=== PATIENT | male | born 1960 | race Caucasian/White ===

== ENCOUNTER 2016-10-08 08:10 | Inpatient (IN) | payer OTHER ==
[2016-09-13 11:56] VITALS: BMI 49.0
--- NOTE | 2016-09-13 12:38 | PAT Medication Instructions ---
Service Date Sep 13, 2016. Current Home Medication List Aspirin (Aspirin Ec), 81 MG PO QAM Cholecalciferol (Vitamin D3), 1 TAB PO QPM Cyanocobalamin (Vitamin B12 500MCG), 1,000 MCG PO QPM Levothyroxine Sodium (Levothyroxine Sodium), 1 TAB PO QAM Levothyroxine Sodium (Synthroid), 200 MCG PO QAM Lisinopril (Zestril), 10 MG PO QPM Metformin Hcl (Glucophage), 500 MG PO BID Multivitamin (Multivitamin), 1 TAB PO QAM Simvastatin (Zocor), 20 MG PO QPM Tramadol (Ultram), 50 MG PO Q4H PRN for Pain [Inhaler], 2 PUFFS INH Q4H PRN for cryptanalyst Instructions For Your Scheduled Surgery - Hold the following medications 48 hours prior to surgery: Metformin Hcl (Glucophage), 500 MG PO BID - Hold the following medications evening prior to surgery: Lisinopril (Zestril), 10 MG PO QPM - Hold the following medications the morning of surgery: Multivitamin (Multivitamin), 1 TAB PO QAM - Take the following medications the morning of surgery with a sip of water: Tramadol (Ultram), 50 MG PO Q4H PRN for Pain (can take up to up to four hours prior to surgery if needed) Levothyroxine Sodium (Levothyroxine Sodium), Aspirin (Aspirin Ec), 81 MG PO QAM Albuterol Inhaler 2 PUFFS INH Q4H PRN for RN (bring with you to hospital on day of surgery) - Take the following medications as scheduled the night before surgery: Tramadol (Ultram), 50 MG PO Q4H PRN for Pain Simvastatin (Zocor), 20 MG PO QPM Cholecalciferol (Vitamin D3), 1 TAB PO QPM Cyanocobalamin (Vitamin B12 500MCG), 1,000 MCG PO QPM Albuterol Inhaler 2 PUFFS INH Q4H PRN for RN If you have any questions please call us at [phone] or [phone] ( [place]) or [phone]
--- NOTE | 2016-09-13 13:08 | DIAGNOSTIC IMAGING REPORT ---
CHEST PREADMISSION(PA/LAT) CLINICAL HISTORY: PAT preoperative evaluation COMPARISON STUDY: None FINDINGS: Mild cardiomegaly. Lungs otherwise are clear. Diaphragms are smooth. IMPRESSION: Mild cardia megaly. Otherwise negative study Electronically signed by: Abran Amos M.D. 09/13/2016 1:07 PM
[2016-09-13 13:26] LABS: PROTHROMBIN TIME (PATIENT) 10.6 SECONDS (9.0-12.0)
[2016-09-13 13:59] LABS: ESTIMATED AVERAGE GLUCOSE 108 mg/dl; HA1C FLAG Normal (Normal)
--- NOTE | 2016-09-17 16:19 | History and Physical ---
History & Physical Date Sep 17, 2016. Chief Complaint left knee pain History of Present Illness Nguyễn is a pleasant 56-year-old fauzia who presents for preoperative evaluation prior to a left knee replacement. Patient states that they have been having pain in this knee for many years now, which has gradually worsened, it has now gotten to the point it is affecting his daily activities including walking, standing, going up and down steps. Patient has tried and failed conservative measures including previous cortisone injection, viscosupplementation, bracing, physical therapy, and PO NSAIDs with no relief, as well as a previous knee arthroscopy. At this point in time, patient has failed conservative measures and would like to proceed with a left knee replacement. Past Medical/Surgical History Asthma Hypothyroidism Sleep Apnea Diabetes Additional History Bleeding Tendencies: No Infectious Diseases: No Allergies Coded Allergies: No Known Allergies (Unverified , 09/13/16) Home Medications Scheduled Aspirin (Aspirin Ec), 81 MG PO QAM Cholecalciferol (Vitamin D3), 1 TAB PO QPM Cyanocobalamin (Vitamin B12 500MCG), 1,000 MCG PO QPM Levothyroxine Sodium (Levothyroxine Sodium), 1 TAB PO QAM Levothyroxine Sodium (Synthroid), 200 MCG PO QAM Lisinopril (Zestril), 10 MG PO QPM Metformin Hcl (Glucophage), 500 MG PO BID Multivitamin (Multivitamin), 1 TAB PO QAM Simvastatin (Zocor), 20 MG PO QPM Scheduled PRN Tramadol (Ultram), 50 MG PO Q4H PRN for Pain [Inhaler], 2 PUFFS INH Q4H PRN for RN Physical Examination Skin: warm/dry, no rash Eyes: normal inspection, EOMI, sclerae normal ENT: normal ENT inspection, pharynx normal Head: normocephalic, atraumatic Neck: supple, no adenopathy, trachea midline Respiratory/Chest: lungs clear, normal breath sounds, no respiratory distress Cardiovascular: regular rate, rhythm, no edema, no murmur Abdomen / GI: normal bowel sounds, non tender Addiitonal Comments: Left KNEE Knee ROM L * Active ROM - Flexion: 100 degrees, Extension: 5 degrees, Factors: pain, Description: Active painful ROM. Knee * Gait: Limp. Alignment - Left: neutral. Ecchymosis - Left: negative. Effusion - Left: mild. Swelling - Left: mild. Maximum tenderness - Left: Medial Joint Line. Patella exam - Crepitation - Left: mild. Patella position - Left: neutral. Knee Normal Inspection - Atrophy - Left: Absent. Skin - Left: Normal. Patella exam - Apprehension - Left: Negative. Q-angle - Left: Normal. Posterior drawer - Left: Negative. Anterior drawer - Left: Negative. Diagnosis Left knee djd Hypothyroidism Diabetes Asthma Left Knee Xray: Xrays reviewed of the left knee showing findings consistent with degenerative joint disease including joint space narrowing, subchondral sclerosis and peripheral osteophyte formation. no acute bony pathology, overall varus alignment. Impression: degenerative joint disease of the Left knee with no acute bony pathology noted. Plan of Treatment Further care discussed with patient and at this point in time has failed conservative measures and would like to proceed with a left total knee replacement. Plan on discharge will be home with outpatient physical therapy. DVT prophalaxis with TEDs, SCDs and will also place on aspirin 81 mg p.o. b.i.d. for a month postop. Patient will have follow up appointment in our office two weeks post op for staple/suture removal and re-evaluation. Patient otherwise has no other questions or concerns.
[2016-10-08] VITALS (9 sets, daily range): BP systolic 98–129; BP diastolic 65–84; PULSE 74–90; TEMP 36.4–36.8; O2SAT 91–98; Ht 167.6 cm; Wt 138.3 kg
[~2016-10-08] VITALS: Ht 167.6 cm; Wt 138.3 kg
[2016-10-08] MEDS: TRANEXAMIC ACID INJ 1,000 MG in SODIUM CHLORIDE 0.9% 100ML 100 ML IV SCH ×2 (06:30→10:37)
--- NOTE | 2016-10-08 07:13 | History & Physical Bridge Note ---
H&P Re-Evaluation Bridge Note: I have examined the patient, reviewed the History & Physical and in the interval since the performance of the History & Physical I have noted the following changes of clinical significance: No changes noted
[~2016-10-08 08:10] MED LIST: ACETAMINOPHEN 500 MG TAB PO SCH; ASPI81TA28 PO; BUPIVACAINE 0.25% 30 ML VIAL ONE; BUPIVACAINE 0.5 % 5 MG/1 ML PF 10ML VIAL ONE; CEFAZOLIN 3000 MG/65 ML D5W 65 ML IV SCH; CHOL1000 PO; CYAN500T13 PO; CeleBREX 200 MG CAP PO SCH; DEXAMETHASONE 4 MG TAB PO SCH; FAMOTIDINE 20 MG TAB PO SCH; FENTANYL CITRATE INJ 50 MCG/1 ML 2 ML VIAL ONE; GABAPENTIN 300 MG CAP PO SCH; INHALER INH; LACTATED RINGER'S 1000ML IV SCH; LACTATED RINGER'S 500 ML IV SCH; LEVO200T6 PO; METOCLOPRAMIDE HCL 10 MG TAB PO SCH; MIDAZOLAM HCL 1 MG/ML 2ML VIAL ONE; MULT-506 PO; ROPIVACAINE 5MG/ML 30 ML 150 MG, BUPIVACAINE/EPINEPHR 0.5% MPF 30 ML, KETOROLAC TROMETH... INFIL SCH; SIMV20TA2 PO; TRAM-10 PO
[2016-10-08] MEDS ORDERED: NURSING VERBAL MED ORDER ONE (08:45)
[2016-10-08] MEDS ORDERED: PROPOFOL IV EMULSION 10 MG/ML 20 ML VIAL IV ONE (09:39)
[2016-10-08] MEDS ORDERED: LACTATED RINGER'S 1000ML 1,000 ML IV PRN (10:11)
[2016-10-08] MEDS ORDERED: FENTANYL CITRATE INJ 50 MCG/1 ML 2 ML VIAL IV PRN (10:15)
[2016-10-08] MEDS ORDERED: ONDANSETRON INJ 2 MG/ML 2 ML VIAL IV PRN ×2 (10:15→12:45)
[2016-10-08] MEDS ORDERED: ORTHO JOINT ANESTHETIC ONE (10:20)
[2016-10-08] MEDS ORDERED: MIDAZOLAM HCL 1 MG/ML 2ML VIAL ONE (11:07)
--- NOTE | 2016-10-08 11:57 | [facility] Post Operative Brief Note ---
Immediate Operative Summary Operative Date Oct 08, 2016. Pre-Operative Diagnosis Left Knee Degenerative Joint Disease Post-Operative Diagnosis Left Knee Degenerative Joint Disease Procedure(s) Performed Left Total Knee Arthroplasty Surgeon Dr. Toni Lanier Supervisor [employer] Surgeon(s) Colten Singh PA-C Estimated Blood Loss 10mL Findings severe djd lt knee Specimens Specimen A. Left Knee Bone and Tissue Complication(s) None Disposition Recovery Room / PACU
[2016-10-08] MEDS ORDERED: POVIDONE-IODINE OP SOLN 30 ML BTL TOP ONE (12:10)
[2016-10-08] MEDS ORDERED: BACITRACIN 50000 UNIT VIAL IR ONE (12:10)
--- NOTE | 2016-10-08 12:16 | OPERATIVE REPORT ---
DATE OF OPERATION: 10/08/2016 PREOPERATIVE DIAGNOSIS: Severe endstage degenerative joint disease left knee. POSTOPERATIVE DIAGNOSIS: Severe endstage degenerative joint disease left knee. PROCEDURE: Left total knee arthroplasty utilizing Journey II patient matched block total knee arthroplasty size 6 femur, 5 tibia, 13 constrained poly, 32 oval patella. SURGEON: Dr. Lanier. WELDING SPECIALIST: Colten Singh PA-C who was necessary for prepping, draping, retraction, wound closure of deep fascia, subQ and skin. ESTIMATED BLOOD LOSS: 10 mL. TOURNIQUET TIME: 40 minutes. COMPLICATIONS: None. HISTORY OF PRESENT ILLNESS: The patient is a very pleasant 68-year-old white male with complaints of ongoing severe endstage DJD about his left knee. He has been nonresponsive to conservative therapy and presents for total knee arthroplasty. After thorough discussion of risks, complications and other treatment options he has failed attempts at injections, viscosupplementations, corticosteroid injections, relative rest, activity modification and bracing. OPERATION AND FINDINGS: PROCEDURE: The patient was properly prepped and draped in supine position for total knee arthroplasty after identifying the appropriate surgical site. An anterior midline incision was made through the subcutaneous tissues down to the region of the extensor mechanism. A medial parapatellar incision was subsequently made. Meticulous hemostasis was obtained and performed at all times. The patella having been subluxed lateralward, medial and lateral meniscal remnants were excised. The patellar cut was then initially made and was sized to the appropriate size. After subluxing the tibia forward the appropriate meniscal fragments having been removed the distal femur was then cut first utilizing a Borrego \T\ Nephew block. The distal femoral cuts and chamfer cuts were all made under direct visualization and the proximal tibial osteotomy cut was also made utilizing Borrego \T\ Nephew blocks and checked with an extramedullary guide. The appropriate trial components on the femur and tibia were placed. Appropriate trial spacers were used to check flexion and extension gaps. With flexion and extension gaps being equal, the components were then subsequently after thorough irrigation and debridement lavage components were then subsequently cemented in the following order: femur, tibia and patella. Exparel was used for intraoperative anesthesia, the medial parapatellar incision was closed utilizing #1 Vicryl, subQ was closed with 2-0 Vicryl, skin was closed with skin clips. A sterile compression dressing was placed. The patient was taken to recovery room in stable condition. Due to the complex nature of the procedure, the entire surgery was performed with the operational assistance of Colten Singh PA-C. The operations administrative assistant, under direct supervision, was involved in the actual performance of all aspects of the surgical procedure including hemostasis, tissue retraction and incision, instrument management, patient positioning, and wound closure. I attest to the content of the Intraoperative Record and any orders documented therein. Any exceptio ns are noted below.
[2016-10-08] MEDS ORDERED: BISACODYL 10 MG SUPP PR PRN (12:45)
[2016-10-08] MEDS ORDERED: [UNRECOGNIZED DRUG - OTHER] INH PRN (12:45)
[2016-10-08] MEDS ORDERED: MAGNESIUM HYDROXIDE SUSP 30 ML UDC PO PRN (12:45)
[2016-10-08] MEDS ORDERED: DiphenhydrAMINE HCL 50 MG/ML VIAL IV PRN (12:45)
[2016-10-08] MEDS ORDERED: MoRPHine SULFATE 2 MG/ML CARP IV PRN ×2 (12:45→14:30)
[2016-10-08] MEDS ORDERED: ZOLPIDEM TARTRATE 5 MG TAB PO PRN (12:45)
[2016-10-08] MEDS ORDERED: TAMSULOSIN HCL 0.4 MG CAP PO PRN (12:45)
[2016-10-08] MEDS ORDERED: ALUMINUM/MAGNESIUM/SIMETH (MAALOX MAX) 30 ML UDC PO PRN (12:45)
--- NOTE | 2016-10-08 13:12 | DIAGNOSTIC IMAGING REPORT ---
TWO VIEWS LEFT KNEE CLINICAL HISTORY: Postoperative examination. FINDINGS: AP and crosstable lateral portable views of the left knee are obtained. A left knee arthroplasty is in near anatomic alignment. There has been undersurface remodeling of the patella. No acute fracture is seen. There are expected postoperative changes around the knee including skin clips, a surgical drain, soft tissue edema, and subcutaneous gas. IMPRESSION: Expected postoperative changes status post left knee arthroplasty. No acute fracture is seen. Electronically signed by: Shahbaz Johnson M.D. 10/08/2016 1:10 PM Dictated Date/Time: 10/08/2016 1:10 PM
--- NOTE | 2016-10-08 13:29 | Anesthesiology Progress Note ---
Anesthesia Post Op Note Date & Time Oct 08, 2016 at 13:28 Vital Signs Pain Intensity: 0 Vital Signs Past 12 Hours Date Time Temp Pulse Resp B/P Pulse Ox O2 Delivery O2 Flow Rate FiO2 10/08/16 13:20 36.1 67 12 125/81 99 Nasal Cannula 4 10/08/16 13:10 36.1 80 12 145/81 95 Nasal Cannula 4 10/08/16 13:00 71 12 126/74 98 Nasal Cannula 4 10/08/16 12:50 84 12 141/88 97 Nasal Cannula 4 10/08/16 12:40 36.3 81 12 106/74 97 Nasal Cannula 4 10/08/16 09:00 36.8 74 18 125/80 91 Room Air Notes Mental Status: alert / awake / arousable, participated in evaluation Nausea / Vomiting: adequately controlled Pain: adequately controlled Airway Patency, RR, SpO2: stable & adequate BP & HR: stable & adequate Hydration State: stable & adequate Neuraxial Anesthesia: was administered, sensory block is resolving Anesthetic Complications: no major complications apparent
[2016-10-08] MEDS ORDERED: MoRPHine SULFATE 10 MG/ML CARP/VIAL IV PRN (14:30)
[2016-10-08] MEDS ORDERED: DEXTROSE 50% 50 ML SYR IV PRN (14:30)
[2016-10-08] MEDS ORDERED: MoRPHine SULFATE 4 MG/ML 1 ML CARP\\VIAL IV PRN (14:30)
[2016-10-08] MEDS ORDERED: GLUCAGON FOR INJ 1 MG VIAL SQ PRN (14:30)
[2016-10-08] MEDS ORDERED: GLUCOSE 40% GEL 15 GM TUBE PO PRN (14:30)
[2016-10-08] MEDS ORDERED: GLUCOSE 10 TABS/TUBE PO PRN (14:30)
[2016-10-08] MEDS ORDERED: HydrALAZINE HCL 20 MG/ML VIAL IV. PRN (14:45)
--- NOTE | 2016-10-08 14:53 | Medical Consult ---
Consultation Date of Consultation: Oct 08, 2016. Attending Physician: Toni Lanier D.O. Reason for Consultation: Medical management History of Present Illness This is a 56 y/o male with a history of DM II, HTN, HLD, hypothyroidism, asthma , and sleep apnea who presents s/p left TKA with Dr. Lanier on 10/08 for medical management. The patient has just arrived to the floor from the PACU and is very drowsy. He has not eaten, urinated, passed gas, or had a bowel movement yet. He complains of numbness and tingling in his lower extremities. The patient denies fevers, chills, sweats, chest pain, palpitations, claudication, cough, wheezing, shortness of breath, nausea, vomiting, abdominal pain, dysuria , hematuria, urinary retention, paralysis, and weakness. Past Medical/Surgical History Diabetes mellitus type 2 HTN HLD Hypothyroidism Asthma Sleep apnea Family History Diabetes mellitus Esophageal cancer Hodgkin's disease Hypertension Kidney disease Lung cancer Social History Smoking Status: Current Every Day Smoker (1/2 ppd) Smokeless Tobacco Use: No Alcohol Use: heavy (2-3 beers/day) Drug Use: none Marital Status: single Housing Status: lives with family (mother) Occupation Status: unemployed Allergies Coded Allergies: No Known Allergies (Unverified , 10/08/16) Current Inpatient Medications Current Inpatient Medications Medications (Trade) Dose Ordered Sig/Noble Route Start Time Stop Time Status Last Admin Dose Admin Lactated Ringer's 1,000 ml @ 60 mls/hr [id number] IV 10/08/16 06:00 10/08/16 22:39 10/08/16 09:33 60 MLS/HR Cefazolin Sodium (Ancef 3000 Mg/ 65 ml D5W) 65 ml @ 100 mls/hr PREOP IV 10/08/16 06:00 10/08/16 18:00 10/08/16 10:53 100 MLS/HR Acetaminophen (Tylenol Tab) 1,000 mg PREOP PO 10/08/16 06:00 10/08/16 18:00 10/08/16 09:33 1,000 MG Celecoxib (CeleBREX CAP) 200 mg PREOP PO 10/08/16 06:00 10/08/16 18:00 10/08/16 09:33 200 MG Dexamethasone (Decadron Tab) 8 mg PREOP PO 10/08/16 06:00 10/08/16 18:00 10/08/16 09:34 8 MG Famotidine (Pepcid Tab) 20 mg PREOP PO 10/08/16 06:00 10/08/16 18:00 10/08/16 09:34 20 MG Gabapentin (Neurontin Cap) 600 mg PREOP PO 10/08/16 06:00 10/08/16 18:00 10/08/16 09:32 600 MG Metoclopramide HCl 10 mg 10 mg PREOP PO 10/08/16 06:00 10/08/16 18:00 10/08/16 09:32 10 MG Tranexamic Acid/ Sodium Chloride (Cyklokapron Inj/ Nss 100ml) 110 ml @ 660 mls/hr TODAY@06,0630 IV 10/08/16 06:00 10/08/16 16:00 10/08/16 10:37 660 MLS/HR Fentanyl Citrate (Fentanyl Inj) 25 mcg Q5M PRN IV 10/08/16 10:15 10/08/16 15:15 Ondansetron HCl 4 mg 4 mg ONE PRN IV 10/08/16 10:15 10/08/16 15:15 Lactated Ringer's (Lr 1000ml) 1,000 ml @ 160 mls/hr Q6H15M PRN IV 10/08/16 10:11 10/08/16 15:11 Cholecalciferol (Vitamin D Tab) 1,000 inter.unit QPM PO 10/08/16 21:00 11/07/16 20:59 Cyanocobalamin (Vitamin B-12 Tab) 1,000 mcg QPM PO 10/08/16 21:00 11/07/16 20:59 Levothyroxine Sodium (Synthroid Tab) 200 mcg DAILYBB PO 10/09/16 06:00 11/08/16 05:59 Lisinopril (Zestril Tab) 10 mg QPM PO 10/08/16 21:00 11/07/16 20:59 Simvastatin 20 mg 20 mg QPM PO 10/08/16 21:00 11/07/16 20:59 Sodium Chloride 1,000 ml @ 100 mls/hr Q10H IV 10/08/16 14:30 10/09/16 14:29 Cefazolin Sodium/ Dextrose (Ancef Iv/D5 50ml) 60 ml @ 100 mls/hr Q8H IV 10/08/16 19:00 10/09/16 03:35 Oxycodone HCl (Roxicodone Immediate Rel Tab) 1 TABLET FOR PAIN RATING... Q4H PRN PO 10/08/16 12:45 10/22/16 12:44 Oxycodone HCl (Oxycontin Tab) 10 mg Q12 PO 10/08/16 21:00 10/22/16 20:59 Acetaminophen (Tylenol Tab) 1,000 mg Q8 PO 10/08/16 15:00 11/07/16 14:59 Magnesium Hydroxide (Milk Of Magnesia Susp) 30 ml Q6H PRN PO 10/08/16 12:45 11/07/16 12:44 Bisacodyl (Dulcolax Supp) 10 mg DAILY PRN VT 10/08/16 12:45 11/07/16 12:44 Senna (Senokot Tab) 17.2 mg HS PO 10/08/16 21:00 11/07/16 20:59 Docusate Sodium (coLACE CAP) 100 mg BID PO 10/08/16 21:00 11/07/16 20:59 Diphenhydramine HCl (Benadryl Inj) 25 mg Q8H PRN IV 10/08/16 12:45 11/07/16 12:44 Al Hydrox/Mg Hydrox/Simethicone (Maalox Max Susp) 15 ml Q4H PRN PO 10/08/16 12:45 11/07/16 12:44 Zolpidem Tartrate (Ambien Tab) 5 mg HSZ PRN PO 10/08/16 12:45 11/07/16 12:44 Multivitamins (Multivitamin Tab) 1 tab QAM PO 10/09/16 09:00 11/08/16 08:59 Ondansetron HCl (Zofran Inj) 4 mg Q6H PRN IV 10/08/16 12:45 11/07/16 12:44 Ferrous Gluconate (Ferrous Gluconate Tab) 324 mg TIDM PO 10/08/16 17:45 11/07/16 17:59 Pantoprazole Sodium (Protonix Tab) 40 mg QAM PO 10/09/16 09:00 11/08/16 08:59 Tamsulosin HCl (Flomax Cap) 0.4 mg QAM PRN PO 10/08/16 12:45 11/07/16 12:44 Aspirin (Ecotrin Tab) 81 mg BID PO 10/08/16 21:00 11/07/16 20:59 Insulin Aspart (novoLOG ASPART) SLIDING SCALE G... ACHS SC 10/08/16 16:00 11/07/16 15:59 Glucose (Glucose 40% Gel) 15-30 GRAMS 15 GRAMS... UD PRN PO 10/08/16 14:30 11/07/16 14:29 Glucose (Glucose Chew Tab) 4-8 Tablets 4 Tabl... UD PRN PO 10/08/16 14:30 11/07/16 14:29 Dextrose (Dextrose 50% 50ML Syringe) 25-50ML OF 50% DW IV FOR... UD PRN IV 10/08/16 14:30 11/07/16 14:29 Glucagon (Glucagon Inj) 1 mg UD PRN SQ 10/08/16 14:30 11/07/16 14:29 Morphine Sulfate (MoRPHine SULFATE INJ) 2 mg Q4H PRN IV 10/08/16 14:30 10/22/16 14:29 Morphine Sulfate (MoRPHine SULFATE INJ) 4 mg Q4H PRN IV 10/08/16 14:30 10/22/16 14:29 Morphine Sulfate (MoRPHine SULFATE INJ) 6 mg Q4H PRN IV 10/08/16 14:30 10/22/16 14:29 Review of Systems Constitutional: + fatigue, No chills, No fever, No sweats Eyes: No diplopia, No eye pain, No worsening of vision ENT: No hearing loss, No nasal symptoms, No sore throat Respiratory: No cough, No shortness of breath, No wheezing Cardiovascular: No chest pain, No claudication, No palpitations Abdomen: No nausea, No pain, No vomiting Musculoskeletal: No calf pain, No joint pain, No muscle pain Genitourinary - Male: No dysuria, No hematuria, No urinary retention Neurologic: + numbness/tingling, No paralysis, No weakness Integumentary: No color change, No itch, No rash Physical Exam Date Time Temp Pulse Resp B/P Pulse Ox O2 Delivery O2 Flow Rate FiO2 1/10/17 13:46 36.4 77 16 121/84 96 Nasal Cannula 4.0 10/08/16 13:20 36.1 67 12 125/81 99 Nasal Cannula 4 10/08/16 13:10 36.1 80 12 145/81 95 Nasal Cannula 4 10/08/16 13:00 71 12 126/74 98 Nasal Cannula 4 10/08/16 12:50 84 12 141/88 97 Nasal Cannula 4 10/08/16 12:40 36.3 81 12 106/74 97 Nasal Cannula 4 10/08/16 09:00 36.8 74 18 125/80 91 Room Air General Appearance: WD/WN, no apparent distress (lethargic), + obese (morbidly obese) Head: normocephalic, atraumatic Eyes: normal inspection, PERRL, EOMI ENT: normal ENT inspection, hearing grossly normal, pharynx normal Neck: supple, no JVD, trachea midline Respiratory/Chest: lungs clear, normal breath sounds, no respiratory distress Cardiovascular: regular rate, rhythm, no gallop, no murmur Abdomen/GI: normal bowel sounds, non tender, soft Extremities/Musculoskelatal: normal inspection, no calf tenderness, no pedal edema Neurologic/Psych: alert (lethargic but easily rousable), normal mood/affect, oriented x 3 Skin: normal color, warm/dry, no rash Laboratory Results Last 24 Hours Test 10/08/16 08:54 Bedside Glucose 116 mg/dl Assessment & Plan 56 y/o male with a history of DM II, HTN, HLD, hypothyroidism, asthma, and sleep apnea who presents s/p left TKA with Dr. Lanier on 10/08 for medical management. -Pain management, DVT prophylaxis, and PT/OT as per primary team Diabetes mellitus type 2--Last HgbA1c checked 09/13 was 5.4 -Hold metformin -Insulin sliding scale -Check BSGs q ac and qhs HTN--stable -Hold lisinopril until renal function is checked/stable -Cover with hydralazine 10 mg IV q6h prn SBP >180 HLD -Continue simvastatin 20 mg PO qhs Hypothyroidism -Continue Synthroid 200 mcg PO qd Sleep apnea--pt used CPAP in the past but felt that he did better without it. He does not want one ordered at this time. Thank you for this consultation. We will continue to follow. I agree with PA assessment and plan Pt S/P TKA Monitor for acute blood loss anemia Cont ISS for DM II HTN stable No further recs at this time
[2016-10-08] MEDS ORDERED: PNEUMOCOCCAL POLYSACCHARIDES 25 MCG/0.5 ML VIAL/SYR IM. ONE (15:00)
[2016-10-08] MEDS ORDERED: PNEUMOCOCCAL ADMINISTRATION CHARGE ONE (15:00)
[2016-10-08] MEDS: SODIUM CHLORIDE 0.9% 1000ML 1,000 ML IV SCH (15:28)
[2016-10-08] MEDS: ACETAMINOPHEN 500 MG TAB PO SCH ×2 (15:29→22:22)
[2016-10-08 16:10] LABS: HEMATOCRIT 39.5 % (42-52); MEAN CORPUSCULAR HEMOGLOBIN 33.9 pg (25-34); MEAN CORPUSCULAR HGB CONC 33.9 g/dl (32-36); MEAN PLATELET VOLUME 10.5 fL (7.4-10.4); PLATELET COUNT 184 K/uL (130-400); RED BLOOD COUNT 3.95 M/uL (4.7-6.1); WHITE BLOOD COUNT 7.65 K/uL (4.8-10.8)
[2016-10-08 16:33] LABS: BUN/CREATININE RATIO 14.1 (10-20); CALCIUM 8.8 mg/dl (8.5-10.1); CREATININE 0.74 mg/dl (0.60-1.40); POTASSIUM 4.5 mmol/L (3.5-5.1)
[2016-10-08] MEDS: INSULIN ASPART 100 UNITS/ML 3 ML PEN SC SCH ×2 (17:15→21:12)
[2016-10-08] MEDS: FERROUS GLUCONATE 324 MG TAB PO SCH (17:54)
[2016-10-08] MEDS: CEFAZOLIN IV 2,000 MG in DEXTROSE 5% 50ML 50 ML IV SCH (18:34)
[2016-10-08] MEDS: DOCUSATE SODIUM 100 MG CAP PO SCH (20:36)
[2016-10-08] MEDS: ASPIRIN 81 MG ECTAB PO SCH (20:36)
[2016-10-08] MEDS: SIMVASTATIN 20 MG TAB PO SCH (20:39)
[2016-10-08] MEDS: CHOLECALCIFEROL 1000 INTER.UNIT TAB PO SCH (20:39)
[2016-10-08] MEDS: SENNA 8.6 MG TAB PO SCH (20:40)
[2016-10-08] MEDS: CYANOCOBALAMIN 500 MCG TAB (VIT B-12) PO SCH (20:42)
[2016-10-08] MEDS: OXYCODONE HCL 10 MG TABCR (OXYCONTIN) PO SCH (20:47)
[2016-10-08] MEDS ORDERED: LISINOPRIL 10 MG TAB PO SCH (21:00)
[2016-10-09] MEDS: SODIUM CHLORIDE 0.9% 1000ML 1,000 ML IV SCH ×2 (00:21→10:27)
[2016-10-09] MEDS: CEFAZOLIN IV 2,000 MG in DEXTROSE 5% 50ML 50 ML IV SCH (02:30)
[2016-10-09 03:28] VITALS: BP 106/74; PULSE 74; TEMP 36.5; O2SAT 93
[2016-10-09] MEDS: LEVOTHYROXINE 200 MCG TAB PO SCH (05:35)
[2016-10-09] MEDS: ACETAMINOPHEN 500 MG TAB PO SCH ×3 (05:35→22:07)
[2016-10-09 07:13] LABS: HEMATOCRIT 32.2 % (42-52); MEAN CELL VOLUME 98.5 fL (80-100); MEAN CORPUSCULAR HGB CONC 33.5 g/dl (32-36); MEAN PLATELET VOLUME 10.8 fL (7.4-10.4); PLATELET COUNT 182 K/uL (130-400); RED BLOOD COUNT 3.27 M/uL (4.7-6.1); WHITE BLOOD COUNT 14.32 K/uL (4.8-10.8)
[2016-10-09 07:16] VITALS: O2SAT 93
[2016-10-09 07:41] VITALS: BP 113/69; TEMP 36.3; O2SAT 94
--- NOTE | 2016-10-09 07:41 | Orthopedic Progress Note ---
Orthopedic Progress Note Date of Service Oct 09, 2016. Subjective Post OP Day: 1 (s/p Left TKA) Reports: feeling well, pain controlled w PO medications, Denies: SOB, calf pain , chest pain, complaints, light headedness, nausea / vomiting Objective calves soft nontender, N/V intact, capillary refill less than 2 sec., A&O x3, toes mobile, hemovac drainage (250cc/8 hour) Date Time Temp Pulse Resp B/P Pulse Ox O2 Delivery O2 Flow Rate FiO2 10/09/16 07:16 93 Room Air 10/09/16 03:28 36.5 74 18 106/74 93 Room Air 10/08/16 23:40 36.7 81 16 104/69 94 Room Air 10/08/16 23:30 Room Air 10/08/16 19:15 36.4 90 18 98/65 93 Room Air 10/08/16 16:40 36.4 84 18 111/75 96 Nasal Cannula 3.0 10/08/16 15:40 36.4 75 18 114/78 95 Nasal Cannula 3.0 10/08/16 15:00 95 Nasal Cannula 4.0 10/08/16 14:40 36.4 75 15 129/83 95 Nasal Cannula 2.0 10/08/16 14:10 36.5 81 14 112/70 98 Nasal Cannula 4.0 10/08/16 14:00 98 Nasal Cannula 4.0 10/08/16 13:46 36.4 77 16 121/84 96 Nasal Cannula 4.0 10/08/16 13:20 36.1 67 12 125/81 99 Nasal Cannula 4 10/08/16 13:10 36.1 80 12 145/81 95 Nasal Cannula 4 10/08/16 13:00 71 12 126/74 98 Nasal Cannula 4 10/08/16 12:50 84 12 141/88 97 Nasal Cannula 4 10/08/16 12:40 36.3 81 12 106/74 97 Nasal Cannula 4 10/08/16 09:00 36.8 74 18 125/80 91 Room Air Laboratory Results 24 Hours: Test 10/08/16 15:56 10/09/16 06:35 Hematocrit 39.5 % 32.2 % Hemoglobin 13.4 g/dL 10.8 g/dL Assessment & Plan Assessment: POD #1 s/p Left TKA PT/OT prevena wound vac plan for d/c home with HHPT when stable dvt proph with teds/scds/asa Asthma Hypothyroidism Sleep Apnea Diabetes- Metformin held, cont SSI Discharge Planning Discharge Planning: home with home health DVT Prophylaxis: TEDs, SCDs, ASA Therapy: Physical Therapy
--- NOTE | 2016-10-09 07:44 | Discharge Instructions ---
Discharge Instructions Admission Reason for Admission: Left Knee Osteoarthritis Discharge Discharge Diagnosis / Problem: s/p left total knee replacement Discharge Goals Goal(s): Decrease discomfort, Improve function, Increase independence Activity Recommendations Activity Limitations: as noted below Weightbearing Status: Left weightbearing (as tolerated) . Instructions / Follow-Up Instructions / Follow-Up ACTIVITY RECOMMENDATIONS: SELF CARE INSTRUCTIONS AFTER TOTAL KNEE REPLACEMENT A. You may need to continue a physical therapy program after discharge from the hospital. There are several options available to you. Your doctor will assist you in selecting the best one for you. 1. An out-patient facility 2 to 3 times a week for therapy or home therapy. 2. Continue working on all exercises taught to you in the hospital. Your goals should be to increase bending of your knee to 90 degrees and beyond and to fully straighten your knee. B. You may progress at your own pace from walking with a walker or crutches to a cane; then to no assistive devices. C. Make walking a part of your daily routine. Be up as much as comfortable with rest periods throughout the day. Rest with leg elevation is very important. Use the ice wrap frequently for the first 3-4 weeks. D. There are no restrictions on activities. You may ride in a car, shop, participate in rock mason and all social activities. E. Wear the long elastic stockings (KIMBER hose) 20 hours a day for 2 weeks after surgery. They can be removed several times a day for laundering and for a bath. F. You may shower, no tub baths until cleared by your doctor. SPECIAL CARE INSTRUCTIONS: VERY IMPORTANT TO READ AND REVIEW A. There are a few signs you need to watch for after you are home. Call [facility] if you notice any of the followin. Increased severe knee pain. Some pain is expected especially when you exercise. 2. Increased swelling in your leg or knee; pain or swelling of the calf muscle in either lower leg. 3. Any fluid drainage from the incision. 4. Shortness of breath or chest pain. B. Please call [facility] at if you have any concerns or questions about your operation or recovery. The doctor or his nurse will return your call promptly. C. You must take antibiotics before dental work, bladder, bowel or other surgery. Your doctor will provide you with a permanent care to carry describing this precaution. IMPORTANT: * REMEMBER TO TAKE ASPIRIN, 81 MG, TWICE DAILY FOR 4 WEEKS UNLESS OTHERWISE DIRECTED. THIS IS YOUR BLOOD THINNER. * HIGH RISK PATIENTS MAY BE PRESCRIBED A STRONGER BLOOD THINNER. THIS WILL BE PROVIDED AT DISCHARGE. * CALL IF INCREASED PAIN, REDNESS, DRAINAGE OR FEVER GREATER THAT 101. * WEAR KIMBER HOSE 20 HOURS PER DAY FOR 2 WEEKS. * Prevena- This is a large suction dressing covering your incision. This will help pull any excess drainage from the wound and allow your incision to heal properly. You may shower with this if you can keep the unit outside of the shower. If any bleeding or leakage is noted please call your doctor's office. This will remain on your incision for 7 days and then should be removed. This can be done yourself or by the home nursing staff if applicable. The entire unit is disposable once removed. Once removed, keep incision clean and dry. If redness or drainage is noted, please call your surgeon. FOLLOW UP VISIT: If appointment is not already scheduled: Please call [facility] to make a follow-up appointment for 2 weeks after your surgery at . Current Hospital Diet Patient's current hospital diet: Diabetes Type 2 Diet Discharge Diet Recommended Diet: Diabetes Type 2 Diet Procedures Procedures Performed: Left Total Knee Arthroplasty Pending Studies Studies pending at discharge: no Laboratory Results Hemoglobin A1c Test 09/13/16 12:43 Range/Units Estimated Average Glucose 108 mg/dl Hemoglobin A1c 5.4 4.5-5.6 % Medical Emergencies . Who to Call and When: Medical Emergencies: If at any time you feel your situation is an emergency, please call 911 immediately. . Non-Emergent Contact Non-Emergency issues call your: Primary Care Provider, Surgeon . "Provider Documentation" section prepared by Abran Lin. VTE Core Measure Inpt VTE Proph given/why not?: Other Anticoagulation (ASA 81mg po bid x 1 month ), T.ETristen Stockings, SCD's
[2016-10-09 07:45] LABS: BUN/CREATININE RATIO 19.1 (10-20); CALCIUM 8.2 mg/dl (8.5-10.1); CREATININE 0.75 mg/dl (0.60-1.40); POTASSIUM 4.1 mmol/L (3.5-5.1)
[2016-10-09] MEDS: DOCUSATE SODIUM 100 MG CAP PO SCH ×2 (08:52→22:06)
[2016-10-09] MEDS: INSULIN ASPART 100 UNITS/ML 3 ML PEN SC SCH ×4 (08:52→21:00)
[2016-10-09] MEDS: MULTIVITAMIN TAB PO SCH (08:52)
[2016-10-09] MEDS: PANTOprazole SOD 40 MG TAB PO SCH (08:52)
[2016-10-09] MEDS: ASPIRIN 81 MG ECTAB PO SCH ×2 (08:52→22:05)
[2016-10-09] MEDS: FERROUS GLUCONATE 324 MG TAB PO SCH ×3 (08:53→17:21)
[2016-10-09] MEDS: OXYCODONE HCL 10 MG TABCR (OXYCONTIN) PO SCH ×2 (08:56→22:06)
[2016-10-09] MEDS: OXYCODONE HCL IR 5 MG TAB (IMMEDIATE RELEASE) PO PRN ×3 (08:57→20:15)
--- NOTE | 2016-10-09 10:49 | Anesthesiology Progress Note ---
Anesthesia Post Op Note Date & Time Oct 09, 2016 at 10:47 Vital Signs Pain Intensity: 2.0 Vital Signs Past 12 Hours Date Time Temp Pulse Resp B/P Pulse Ox O2 Delivery O2 Flow Rate FiO2 10/09/16 07:41 36.3 19 113/69 94 Room Air 10/09/16 07:16 93 Room Air 10/09/16 03:28 36.5 74 18 106/74 93 Room Air 10/08/16 23:40 36.7 81 16 104/69 94 Room Air 10/08/16 23:30 Room Air Notes Mental Status: alert / awake / arousable, participated in evaluation Pt Amnestic to Procedure: Yes Nausea / Vomiting: adequately controlled Pain: adequately controlled Airway Patency, RR, SpO2: stable & adequate BP & HR: stable & adequate Hydration State: stable & adequate Neuraxial Anesthesia: sensory block resolved Anesthetic Complications: no major complications apparent
--- NOTE | 2016-10-09 11:21 | Hospitalist Progress Note ---
Hospitalist Progress Note Date of Service Oct 09, 2016. (Shantel Jay PA-C) 10/09/16 agree with PA note (Jim Murray MD) Subjective Pt evaluation today including: conversation w/ patient, physical exam, chart review, lab review, review of studies Pain: Mild, left knee PO Intake: Good Voiding: no voiding problems Pt was seen and examined this morning. He is doing well, was working with occupational therapy at bedside. He also just completed assessment with PT and walked 150 ft without difficulty other than some minimal shortness of breath which he says is unchanged. He is tolerating a diet, passing gas, but has not had a BM yet. Current pain regimen is working well. He has no acute complaints. Constitutional: No chills, No fever, No sweats Eyes: No diplopia ENT: No nasal symptoms, No sore throat Respiratory: + dyspnea on exertion (chronic), No cough, No dyspnea at rest, No shortness of breath, No wheezing Cardiovascular: No chest pain, No palpitations Abdomen: No constipation, No diarrhea, No nausea, No pain, No vomiting Musculoskeletal: + joint pain (left knee with ambulation, mild), No calf pain, No muscle pain Male : No dysuria Neurologic: No memory loss, No numbness/tingling, No weakness Skin: No itch, No rash (Shantel Jay PA-C) Pt evaluation today including: conversation w/ patient, physical exam, chart review, review of studies, review of inpatient medication list Constitutional: No fever ENT: No hearing loss Respiratory: No cough Abdomen: No pain Male : No dysuria Neurologic: No memory loss Psychiatric: No depression symptoms Heme: No abnormal bleeding/bruising Endo: No fatigue Skin: No rash (Jim Murray MD) Objective Vital Signs Date Time Temp Pulse Resp B/P Pulse Ox O2 Delivery O2 Flow Rate FiO2 10/09/16 07:41 36.3 19 113/69 94 Room Air 10/09/16 07:16 93 Room Air 10/09/16 03:28 36.5 74 18 106/74 93 Room Air 10/08/16 23:40 36.7 81 16 104/69 94 Room Air 10/08/16 23:30 Room Air 10/08/16 19:15 36.4 90 18 98/65 93 Room Air 10/08/16 16:40 36.4 84 18 111/75 96 Nasal Cannula 3.0 10/08/16 15:40 36.4 75 18 114/78 95 Nasal Cannula 3.0 10/08/16 15:00 95 Nasal Cannula 4.0 10/08/16 14:40 36.4 75 15 129/83 95 Nasal Cannula 2.0 10/08/16 14:10 36.5 81 14 112/70 98 Nasal Cannula 4.0 10/08/16 14:00 98 Nasal Cannula 4.0 10/08/16 13:46 36.4 77 16 121/84 96 Nasal Cannula 4.0 10/08/16 13:20 36.1 67 12 125/81 99 Nasal Cannula 4 10/08/16 13:10 36.1 80 12 145/81 95 Nasal Cannula 4 10/08/16 13:00 71 12 126/74 98 Nasal Cannula 4 10/08/16 12:50 84 12 141/88 97 Nasal Cannula 4 10/08/16 12:40 36.3 81 12 106/74 97 Nasal Cannula 4 (Shantel Jay PA-C) Physical Exam General Appearance: WD/WN, no apparent distress Eyes: PERRL, EOMI ENT: pharynx normal Neck: no JVD Respiratory/Chest: lungs clear, normal breath sounds, no respiratory distress, + pertinent finding (difficult to auscultate due to body habitus) Cardiovascular: regular rate, rhythm, no JVD, no murmur Abdomen: normal bowel sounds, non tender, soft, + pertinent finding (morbidly obese) Extremities: non-tender, no calf tenderness, + pertinent finding (LLE wrapped in KALEY, dressing is c/d/i, minimal edema present at level of ankle. Normal peripheral pulses. Wound drain in place with ~250cc blood out. ) Neurologic/Psychiatric: no motor/sensory deficits, normal mood/affect, oriented x 3 (Shantel Jay PA-C) General Appearance: WD/WN, no apparent distress Eyes: normal inspection, EOMI ENT: hearing grossly normal, pharynx normal Neck: supple, no JVD Respiratory/Chest: lungs clear, no respiratory distress Cardiovascular: regular rate, rhythm, no gallop Abdomen: normal bowel sounds, soft Extremities: normal range of motion, normal inspection Neurologic/Psychiatric: alert, normal mood/affect Skin: normal color (Jim Murray MD) Laboratory Results Last 24 Hours Test 10/08/16 15:56 10/08/16 17:14 10/08/16 21:02 10/09/16 06:35 White Blood Count 7.65 K/uL 14.32 K/uL Red Blood Count 3.95 M/uL 3.27 M/uL Hemoglobin 13.4 g/dL 10.8 g/dL Hematocrit 39.5 % 32.2 % Mean Corpuscular Volume 100.0 fL 98.5 fL Mean Corpuscular Hemoglobin 33.9 pg 33.0 pg Mean Corpuscular Hemoglobin Concent 33.9 g/dl 33.5 g/dl RDW Standard Deviation 46.1 fL 45.0 fL RDW Coefficient of Variation 12.5 % 12.5 % Platelet Count 184 K/uL 182 K/uL Mean Platelet Volume 10.5 fL 10.8 fL Sodium Level 142 mmol/L 141 mmol/L Potassium Level 4.5 mmol/L 4.1 mmol/L Chloride Level 103 mmol/L 105 mmol/L Carbon Dioxide Level 30 mmol/L 31 mmol/L Anion Gap 9.0 mmol/L 5.0 mmol/L Blood Urea Nitrogen 10 mg/dl 14 mg/dl Creatinine 0.74 mg/dl 0.75 mg/dl Est Creatinine Clear Calc Drug Dose 147.5 ml/min 145.6 ml/min Estimated GFR () 119.5 118.9 Estimated GFR (Non- 103.1 102.5 BUN/Creatinine Ratio 14.1 19.1 Random Glucose 184 mg/dl 130 mg/dl Calcium Level 8.8 mg/dl 8.2 mg/dl Bedside Glucose 166 mg/dl 192 mg/dl Test 10/09/16 07:43 Bedside Glucose 130 mg/dl (Shantel Jay, PAHiroC) Assessment and Plan 56 y/o male with a history of DM II, HTN, HLD, hypothyroidism, asthma, and sleep apnea who presents s/p left TKA with Dr. Lanier on 10/08 for medical management. - Pain management with morphine sulfate 2,4 or 6 mg IV q6H and oxycodone 5-10 mg PO - DVT prophylaxis with ASA 81 mg BID - PT/OT - Hemovac out 250 mL overnight, draining well. - Bowel regimen with senna, dulcolax, MOM - Continue above per primary team recommendations Diabetes mellitus type 2- -Last HgbA1c checked 09/13 was 5.4 -Hold metformin -Insulin sliding scale with Accuchecks achs HTN- - stable - lisinopril on Hold: BP remains stable around 110s. Can restart if BP trends upward (SBP >120) or upon discharge as kidney function is stable. - Cover with hydralazine 10 mg IV q6h prn SBP >180 HLD -Continue simvastatin 20 mg PO qhs Hypothyroidism -Continue Synthroid 200 mcg PO qd Sleep apnea- -pt used CPAP in the past but felt that he did better without it. He does not want one ordered at this time. DVT PPx: ASA 81 mg BID CODE STATUS: FULL CODE (Shantel Jay PA-C) Assessment and Plan 56 y/o male with a history of DM II, HTN, HLD, hypothyroidism, asthma, and sleep apnea who presents with s/p left TKA with Dr. Lanier Pain management with morphine sulfate 2,4 or 6 mg IV q6H and oxycodone 5-10 mg PO DVT prophylaxis with ASA 81 mg BID check PT/OT results Hemovac out 250 mL overnight, draining well. Bowel regimen with senna, dulcolax, MOM Continue above per primary team recommendations Diabetes mellitus type 2, Last HgbA1c checked 09/13 was 5.4 Hold metformin Insulin sliding scale with Accuchecks achs HTN, stable lisinopril on Hold: BP remains stable around 110s. Can restart if BP trends upward (SBP >120) or upon discharge as kidney function is stable. Continue with hydralazine 10 mg IV q6h prn SBP >180 HLD Continue simvastatin 20 mg PO qhs Hypothyroidism Continue Synthroid 200 mcg PO qd Sleep apnea- pt used CPAP in the past but felt that he did better without it. He does not want one ordered at this time. DVT Proph: ASA 81 mg BID CODE STATUS: FULL CODE possible d/c home tomorrow (Jim Murray MD)
[2016-10-09 11:55] VITALS: BP 93/60; PULSE 74; TEMP 36.8; O2SAT 94
[2016-10-09 14:59] VITALS: BP 97/64; PULSE 73; TEMP 36.7; O2SAT 91
[2016-10-09] MEDS: CYANOCOBALAMIN 500 MCG TAB (VIT B-12) PO SCH (22:04)
[2016-10-09] MEDS: CHOLECALCIFEROL 1000 INTER.UNIT TAB PO SCH (22:04)
[2016-10-09] MEDS: SIMVASTATIN 20 MG TAB PO SCH (22:05)
[2016-10-09] MEDS: SENNA 8.6 MG TAB PO SCH (22:05)
[2016-10-09 23:51] VITALS: BP 97/64; PULSE 75; TEMP 36.5; O2SAT 87
[2016-10-10] MEDS: LEVOTHYROXINE 200 MCG TAB PO SCH (06:14)
[2016-10-10] MEDS: ACETAMINOPHEN 500 MG TAB PO SCH (06:14)
[2016-10-10 06:38] LABS: HEMATOCRIT 30.3 % (42-52); MEAN CELL VOLUME 98.4 fL (80-100); MEAN CORPUSCULAR HEMOGLOBIN 33.1 pg (25-34); MEAN CORPUSCULAR HGB CONC 33.7 g/dl (32-36); MEAN PLATELET VOLUME 10.3 fL (7.4-10.4); PLATELET COUNT 158 K/uL (130-400); RED BLOOD COUNT 3.08 M/uL (4.7-6.1); WHITE BLOOD COUNT 9.82 K/uL (4.8-10.8)
[2016-10-10 07:10] VITALS: BP 89/54; PULSE 68; TEMP 36.6; O2SAT 92
[2016-10-10 07:12] LABS: BUN/CREATININE RATIO 29.5 (10-20); CALCIUM 8.2 mg/dl (8.5-10.1); CREATININE 0.59 mg/dl (0.60-1.40); POTASSIUM 3.8 mmol/L (3.5-5.1)
--- NOTE | 2016-10-10 07:50 | Orthopedic Progress Note ---
Orthopedic Progress Note Date of Service Oct 10, 2016. Subjective Post OP Day: 2 Reports: feeling well, pain controlled w PO medications, Denies: SOB, calf pain , chest pain, complaints, light headedness, nausea / vomiting Objective calves soft nontender, N/V intact, capillary refill less than 2 sec., dressing C /D/I (prevena intact), A&O x3, toes mobile Date Time Temp Pulse Resp B/P Pulse Ox O2 Delivery O2 Flow Rate FiO2 10/10/16 07:40 Room Air 10/10/16 07:10 36.6 68 18 89/54 92 Room Air 10/09/16 23:51 36.5 75 18 97/64 87 Room Air 10/09/16 20:00 Room Air 10/09/16 14:59 36.7 73 18 97/64 91 Room Air 10/09/16 11:55 36.8 74 16 93/60 94 Room Air Laboratory Results 24 Hours: Test 10/10/16 06:21 Hematocrit 30.3 % Hemoglobin 10.2 g/dL Assessment & Plan Assessment: POD #2 s/p Left TKA PT/OT prevena wound vac plan for d/c home with HHPT, likely after PT today dvt proph with teds/scds/asa HTN- BPs running a little low, currently remains asymptomatic Asthma Hypothyroidism Sleep Apnea Diabetes- Metformin held, cont SSI Discharge Planning Discharge Planning: home with home health DVT Prophylaxis: TEDs, SCDs, ASA Therapy: Physical Therapy
[2016-10-10] MEDS ORDERED: RXC5 PO (07:52)
[2016-10-10] MEDS ORDERED: ASPEC81 PO (07:52)
[2016-10-10] MEDS ORDERED: CLC100 PO (07:52)
[2016-10-10] MEDS ORDERED: ONDA8TAB6 PO (07:52)
[2016-10-10] MEDS ORDERED: ACET-1138 PO (07:52)
[2016-10-10] MEDS ORDERED: OXYSR10 PO (07:52)
[2016-10-10] MEDS: FERROUS GLUCONATE 324 MG TAB PO SCH (08:40)
[2016-10-10] MEDS: INSULIN ASPART 100 UNITS/ML 3 ML PEN SC SCH (08:40)
[2016-10-10] MEDS: PANTOprazole SOD 40 MG TAB PO SCH (08:41)
[2016-10-10] MEDS: MULTIVITAMIN TAB PO SCH (08:41)
[2016-10-10] MEDS: ASPIRIN 81 MG ECTAB PO SCH (08:44)
[2016-10-10] MEDS: OXYCODONE HCL 10 MG TABCR (OXYCONTIN) PO SCH (08:44)
[2016-10-10] MEDS: DOCUSATE SODIUM 100 MG CAP PO SCH (08:44)
[2016-10-10 08:48] VITALS: BP 118/80
[2016-10-10 09:32] VITALS: BP 118/80; PULSE 68; TEMP 36.6; O2SAT 92
--- NOTE | 2016-10-10 10:43 | Hospitalist Progress Note ---
Hospitalist Progress Note Date of Service Oct 10, 2016. (Shantel Jay PA-C) 10/10/16 Agree with PA note (Jim Murray MD) Subjective Pt evaluation today including: conversation w/ patient, physical exam, chart review, lab review, review of studies, review of inpatient medication list Pain: Minimal PO Intake: Good Voiding: no voiding problems Pt was seen and examined this morning. He was just working with PT and reports his knee is tight today and a little sore. The drain has been removed and wound vac placed. He is passing gas, had a bowel movement this morning, and has been up and walking without difficulty. BPs overnight were low into the 80s and 90s , he was asymptomatic and denies lightheadedness or dizziness with standing Constitutional: No chills, No fever, No sweats Eyes: No diplopia ENT: No nasal symptoms, No sore throat Respiratory: + dyspnea on exertion (minimal, but chronically has this.), No cough, No dyspnea at rest, No shortness of breath, No wheezing Cardiovascular: No chest pain, No palpitations Abdomen: No constipation, No diarrhea, No nausea, No pain, No vomiting Musculoskeletal: + joint pain (Left knee pain), + swelling (Left Lower extremity) Male : No dysuria Neurologic: No numbness/tingling, No weakness Skin: No rash (Shantel Jay PA-C) Pt evaluation today including: conversation w/ patient, physical exam, chart review, review of studies, review of inpatient medication list Constitutional: No fever ENT: No hearing loss Respiratory: No cough Abdomen: No pain Male : No dysuria Psychiatric: No depression symptoms Endo: No fatigue Skin: No rash (Jim Murray MD) Objective Vital Signs Date Time Temp Pulse Resp B/P Pulse Ox O2 Delivery O2 Flow Rate FiO2 10/10/16 07:40 Room Air 10/10/16 07:10 36.6 68 18 89/54 92 Room Air 10/09/16 23:51 36.5 75 18 97/64 87 Room Air 10/09/16 20:00 Room Air 10/09/16 14:59 36.7 73 18 97/64 91 Room Air 10/09/16 11:55 36.8 74 16 93/60 94 Room Air (Shantel Jay PA-C) Physical Exam General Appearance: WD/WN, no apparent distress, + obese Eyes: PERRL, EOMI ENT: hearing grossly normal, pharynx normal Neck: no JVD Respiratory/Chest: normal breath sounds, no respiratory distress, no accessory muscle use Cardiovascular: regular rate, rhythm, no murmur Abdomen: normal bowel sounds, non tender, soft Extremities: + pertinent finding (LLE with wound vac in place over anterior knee, no drainage to suction. +1 pitting edema bilaterally, worse in the left compared to right. Sensation to light touch in tact.) Neurologic/Psychiatric: alert, oriented x 3 Skin: normal color, warm/dry (Shantel Jay PA-C) General Appearance: WD/WN, no apparent distress Eyes: normal inspection, EOMI ENT: hearing grossly normal, pharynx normal Neck: supple, no JVD Respiratory/Chest: lungs clear, no respiratory distress Cardiovascular: no edema, no murmur Abdomen: normal bowel sounds, soft Extremities: normal range of motion, normal inspection Neurologic/Psychiatric: venetian blind worker II-XII nml as tested, normal mood/affect Skin: normal color (Jim Murray MD) Laboratory Results Last 24 Hours Test 10/09/16 11:18 10/09/16 16:44 10/09/16 20:55 10/10/16 06:21 Bedside Glucose 131 mg/dl 113 mg/dl 116 mg/dl White Blood Count 9.82 K/uL Red Blood Count 3.08 M/uL Hemoglobin 10.2 g/dL Hematocrit 30.3 % Mean Corpuscular Volume 98.4 fL Mean Corpuscular Hemoglobin 33.1 pg Mean Corpuscular Hemoglobin Concent 33.7 g/dl RDW Standard Deviation 45.7 fL RDW Coefficient of Variation 12.8 % Platelet Count 158 K/uL Mean Platelet Volume 10.3 fL Sodium Level 142 mmol/L Potassium Level 3.8 mmol/L Chloride Level 105 mmol/L Carbon Dioxide Level 32 mmol/L Anion Gap 5.0 mmol/L Blood Urea Nitrogen 17 mg/dl Creatinine 0.59 mg/dl Est Creatinine Clear Calc Drug Dose 185.0 ml/min Estimated GFR () 131.2 Estimated GFR (Non- 113.2 BUN/Creatinine Ratio 29.5 Random Glucose 89 mg/dl Calcium Level 8.2 mg/dl (Shantel Jay PA-C) Assessment and Plan 56 y/o male with a history of DM II, HTN, HLD, hypothyroidism, asthma, and sleep apnea who presents s/p left TKA with Dr. Lanier on 10/08 for medical management. - Pain management with morphine sulfate 2,4 or 6 mg IV q6H and oxycodone 5-10 mg PO - DVT prophylaxis with ASA 81 mg BID - PT/OT - plan for home health - Wound vac placed - Bowel regimen with senna, dulcolax, MOM - Last BM was this morning. - Continue above per primary team recommendations Diabetes mellitus type 2- -Last HgbA1c checked 09/13 was 5.4 -Hold metformin -Insulin sliding scale with Accuchecks achs HTN- - stable - lisinopril on Hold: SBP dropped overnight into the 80s-90s, multiple reads. Likely due to d/c of fluids yesterday. Will continue to hold lisinopril at the time of discharge if that happens today per the primary service. Pt should follow up with his PCP within 1 week and check his blood pressure at home. Home health should be able to check BPs so the patient can track it. Will allow restart of lisinopril to be determined by PCP at next appointment. - Can restart if BP trends upward (SBP >120) - Cover with hydralazine 10 mg IV q6h prn SBP >180 - not needed during admission. HLD -Continue simvastatin 20 mg PO qhs Hypothyroidism -Continue Synthroid 200 mcg PO qd Sleep apnea- -pt used CPAP in the past but felt that he did better without it. He does not want one ordered at this time. DVT PPx: ASA 81 mg BID CODE STATUS: FULL CODE Disposition: Discharge to home today. (Shantel Jay PA-C) 56 y/o male with a history of DM II, HTN, HLD, hypothyroidism, asthma, and sleep apnea who presents s/p left TKA with Dr. Lanier on 10/08 for medical management. s/p Left TKA Pain management with morphine sulfate 2,4 or 6 mg IV q6H and oxycodone 5-10 mg PO DVT prophylaxis with ASA 81 mg BID PT/OT - plan for home health Wound vac placed Bowel regimen with teresa [place], MOM - Last BM was this morning. Continue above per primary team recommendations Diabetes mellitus type 2, a1c 5.4 restart metformin Insulin sliding scale with Accuchecks achs HTN- stable lisinopril on Hold: SBP dropped overnight into the 80s-90s, multiple reads. Likely due to d/c of fluids yesterday. Will continue to hold lisinopril at the time of discharge if that happens today per the primary service. Pt should follow up with his PCP within 1 week and check his blood pressure at home. Home health should be able to check BPs so the patient can track it. Will allow restart of lisinopril to be determined by PCP at next appointment. Can restart if BP trends upward (SBP >120) HLD Continue simvastatin 20 mg PO qhs Hypothyroidism Continue Synthroid 200 mcg PO qd Sleep apnea- pt used CPAP in the past but felt that he did better without it. He does not want one ordered at this time. DVT Proph: ASA 81 mg BID CODE STATUS: FULL CODE Disposition: Discharge to home today. (Jim Murray MD)
--- NOTE | 2016-10-10 11:12 | Discharge Instructions ---
Discharge Instructions Admission Reason for Admission: Left Knee Osteoarthritis (Shantel Jay PA-C) Discharge Discharge Diagnosis / Problem: Left total knee arthroplasty (Shantel Jay PA-C) Discharge Goals Goal(s): Decrease discomfort, Improve function (Shantel Jay PA-C) Activity Recommendations Activity Limitations: per Instructions/Follow-up section . (Shantel Jay PA-C) Instructions / Follow-Up Instructions / Follow-Up While you were admitted your blood pressure stayed normal to low without antihypertensive medications (ie. your Lisinopril was held while admitted). You should not resume Lisinopril until seen by your Primary Care Provider(PCP) next week. Please have home health check your blood pressure and RECORD it, so that you can take this to your follow up with PCP where he/she can decide if you should be placed back on this medication. (Shantel Jay PA-C) Current Hospital Diet Patient's current hospital diet: Diabetes Type 2 Diet (Shantel Jay PA-C) Discharge Diet Recommended Diet: Diabetes Type 2 Diet (Shantel Jay PA-C) Procedures Procedures Performed: Left Total Knee Arthroplasty (Shantel Jay PA-C) Pending Studies Studies pending at discharge: no (Shantel Jay PA-C) Laboratory Results Last 24 Hours Test 10/09/16 11:18 10/09/16 16:44 10/09/16 20:55 10/10/16 06:21 Bedside Glucose 131 mg/dl 113 mg/dl 116 mg/dl White Blood Count 9.82 K/uL Red Blood Count 3.08 M/uL Hemoglobin 10.2 g/dL Hematocrit 30.3 % Mean Corpuscular Volume 98.4 fL Mean Corpuscular Hemoglobin 33.1 pg Mean Corpuscular Hemoglobin Concent 33.7 g/dl RDW Standard Deviation 45.7 fL RDW Coefficient of Variation 12.8 % Platelet Count 158 K/uL Mean Platelet Volume 10.3 fL Sodium Level 142 mmol/L Potassium Level 3.8 mmol/L Chloride Level 105 mmol/L Carbon Dioxide Level 32 mmol/L Anion Gap 5.0 mmol/L Blood Urea Nitrogen 17 mg/dl Creatinine 0.59 mg/dl Est Creatinine Clear Calc Drug Dose 185.0 ml/min Estimated GFR () 131.2 Estimated GFR (Non- 113.2 BUN/Creatinine Ratio 29.5 Random Glucose 89 mg/dl Calcium Level 8.2 mg/dl Test 10/10/16 08:17 Bedside Glucose 86 mg/dl Hemoglobin A1c Test 09/13/16 12:43 Range/Units Estimated Average Glucose 108 mg/dl Hemoglobin A1c 5.4 4.5-5.6 % (Shantel Jay PA-C) Medical Emergencies . Who to Call and When: Medical Emergencies: If at any time you feel your situation is an emergency, please call 911 immediately. . (Shantel Jay PA-C) Non-Emergent Contact Non-Emergency issues call your: Primary Care Provider Call Non-Emergent contact if: you have a fever, temperature is above 100.5, your pain is not controlled, your pain is worsening, your pain is unusual for you, wound has increased drainage, wound has increased redness, wound has increased pain, you have any medication questions . (Shantel Jay PA-C) . "Provider Documentation" section prepared by Paola Jay. (Shantel Jay PA-C) agree with above (Jim Murray MD) VTE Core Measure Inpt VTE Proph given/why not?: Other Anticoagulation (ASA 81mg po bid x 1 month ), T.E.D. Stockings, SCD's (Shantel Jay PA-C)
[2016-10-10] MEDS: OXYCODONE HCL IR 5 MG TAB (IMMEDIATE RELEASE) PO PRN (11:26)
--- NOTE | 2016-10-14 11:54 | DISCHARGE SUMMARY ---
DISCHARGE DIAGNOSIS: Degenerative joint disease left knee. SECONDARY DIAGNOSES: Asthma, hypothyroidism, sleep apnea, diabetes mellitus. CONSULTS: Gaby Olvera PA-C/Jacques Oropeza D.O. COMPLICATIONS: None. PROCEDURES: Left total knee arthroplasty performed by Dr. Lanier on 10/08/2016. BRIEF HISTORY: As dictated in the history and physical. HOSPITAL SUMMARY: The patient was admitted on the above date and had the above-noted surgery performed which he tolerated well. On his first postoperative day, he was feeling well and pain was controlled. He had no complaints. Calves were soft, nontender, neurovascularly intact. Toes were mobile and vital signs were stable. He was afebrile. Hemoglobin was 10.8 and he was started on physical therapy protocol and continued on DVT prophylaxis and pain management. By the second postoperative day, he was feeling well and he continued to have good pain control. Dressings were intact. Toes were mobile. Calves were soft and nontender, neurovascularly intact. Hemoglobin was 10.2. Vital signs were stable. He was afebrile. He had some notably low blood pressures at 97/64; however, the patient was remaining asymptomatic. Pulse rate was normal and he had been continued on his PT protocol which he was progressing well. He remained medically stable and medicine service suggested holding his lisinopril upon discharge due to his low blood pressures until it normalizes and then restart as per their instructions. He was otherwise remaining stable and it was felt he could be discharged to home on 10/10/2016. Further review, please see chart. LAB AND X-RAY DATA: As per chart. DISCHARGE INSTRUCTIONS: The patient was discharged to home in satisfactory condition on 10/10/2016. DIET: Diabetic. ACTIVITY: Weightbearing as tolerated left lower extremity. Follow TKA instruction sheets and special care instructions as noted. Also follow instructions concerning your lisinopril and follow up with your primary care provider as noted in the discharge instructions by Paola Jay PA-C. The patient to have home health check blood pressures and record. DISCHARGE MEDICATIONS: Acetaminophen 1000 mg p.o. q. 8 hours, aspirin 81 mg p.o. b.i.d., Colace 100 mg p.o. b.i.d., Zofran 8 mg p.o. q. 8 hours, OxyContin 10 mg p.o. q. 12 hours, oxycodone 5-10 mg p.o. q. 4 hours p.r.n., resume taking vitamin D3 one tab p.o. q.a.m., vitamin B12 1000 mcg p.o. q.p.m., levothyroxine 200 mcg p.o. q.a.m., lisinopril to be held as per medicine request, metformin 500 mg p.o. b.i.d., multivitamin 1 tab p.o. q.a.m., simvastatin 20 mg p.o. q.p.m., inhaler 2 puffs inhaled q. 4 hours. Medications to be stopped daily dose of aspirin and tramadol.
[2017-06-23] MEDS ORDERED: LEVO200T PO (11:53)
[2017-06-23] MEDS ORDERED: GLC/500 PO (11:53)
[2017-06-23] MEDS ORDERED: LISI-461 PO (11:54)
[2017-06-27] MEDS ORDERED: DXY100 PO (17:19)
[2017-06-27] MEDS ORDERED: AMOX1TAB43 PO (17:19)
== END 2016-10-10 12:45 | disposition home health service (06) | DRG 470 ==
LOC: ENRESERV → ENRESERVDT → ENRESERVTM → C.ACU 08:10 → C.MSW 12:44
PROVIDERS: ADMIT Orthopaedic Surgery; ATTEND Orthopaedic Surgery
PROC: 0SRD0J9 Replacement of Left Knee Joint with Synthetic Substitute, Cemented, Open Approach (ICD-10-PCS; principal; 2016-10-08 10:30)
DX: M17.12 Unilateral primary osteoarthritis, left knee (principal); Z68.42 Body mass index [BMI] 45.0-49.9, adult; J45.909 Unspecified asthma, uncomplicated; J44.9 Chronic obstructive pulmonary disease, unspecified; I10 Essential (primary) hypertension; E78.5 Hyperlipidemia, unspecified; E11.9 Type 2 diabetes mellitus without complications; E03.9 Hypothyroidism, unspecified; M54.5 Low back pain; G47.30 Sleep apnea, unspecified; F17.210 Nicotine dependence, cigarettes, uncomplicated; E66.01 Morbid (severe) obesity due to excess calories; Z79.82 Long term (current) use of aspirin; Z79.84 Long term (current) use of oral hypoglycemic drugs; Z79.899 Other long term (current) drug therapy; Z79.891 Long term (current) use of opiate analgesic

== ENCOUNTER 2017-06-23 15:55 | Inpatient (IN) | payer OTHER ==
[~2017-06-23] VITALS: Ht 167.6 cm; Wt 141.0 kg
[~2017-06-23 15:55] MED LIST changes: +ACET-1138 PO; -ACETAMINOPHEN 500 MG TAB PO SCH; +ASPEC81 PO; -ASPI81TA28 PO; -BUPIVACAINE 0.25% 30 ML VIAL ONE; -BUPIVACAINE 0.5 % 5 MG/1 ML PF 10ML VIAL ONE; -CEFAZOLIN 3000 MG/65 ML D5W 65 ML IV SCH; +CLC100 PO; -CeleBREX 200 MG CAP PO SCH; -DEXAMETHASONE 4 MG TAB PO SCH; -FAMOTIDINE 20 MG TAB PO SCH; -FENTANYL CITRATE INJ 50 MCG/1 ML 2 ML VIAL ONE; -GABAPENTIN 300 MG CAP PO SCH; +GLC/500 PO; -LACTATED RINGER'S 1000ML IV SCH; -LACTATED RINGER'S 500 ML IV SCH; +LEVO200T PO; -LEVO200T6 PO; +LISI-461 PO; -METOCLOPRAMIDE HCL 10 MG TAB PO SCH; -MIDAZOLAM HCL 1 MG/ML 2ML VIAL ONE; +OXYSR10 PO; -ROPIVACAINE 5MG/ML 30 ML 150 MG, BUPIVACAINE/EPINEPHR 0.5% MPF 30 ML, KETOROLAC TROMETH... INFIL SCH; +RXC5 PO; -TRAM-10 PO
[2017-06-23] MEDS ORDERED: SODIUM CHLORIDE 0.9% 1000ML 1,000 ML IV STA (16:38)
--- NOTE | 2017-06-23 16:43 | EMERGENCY ROOM VISIT NOTE ---
History Report prepared by Nelson: Devante Alexis Under the Supervision of: Dr. Carlos Stewart D.O. First contact with patient: 16:34 Chief Complaint: WOUND INFECTION Stated Complaint: WHITE BLOOD COUNT HIGH,SENT BY DR Galan Triage Summary: patient was seen at [facility], had blood work and put on antibiotics for fever of 103. has taken dose of medication and got a shot at doctors. has cellulitis of the left lower leg. up to the knee for two days History of Present Illness The patient is a 57 year old male who presents to the Emergency Room with complaints of a left leg infection that began yesterday. He began not feeling well at this time and went to a [facility] this morning. He had a fever of 103 F. He received blood work, a shot of Rocephin, and was placed on Bactrim. They called him this evening and told him to go to the ER because his WBC count was elevated. He denies any trauma to the area. He has a history of Diabetes. Source of History: patient Onset: yesterday Position: leg (left) Symptom Intensity: moderate Quality: other (Possible Infection) Timing: worsening Associated Symptoms: + fevers Note: He denies any trauma to the area. Review of Systems See HPI for pertinent positives & negatives. A total of 10 systems reviewed and were otherwise negative. Past Medical & Surgical Medical Problems: (1) DM type 2 (diabetes mellitus, type 2) (2) Dyslipidemia (3) HTN (hypertension) (4) Hypothyroidism (5) MICAH (obstructive sleep apnea) Surgical Problems: (1) History of left knee replacement Family History Diabetes mellitus Esophageal cancer Hodgkin's disease Hypertension Kidney disease Lung cancer Social History Smoking Status: Current Every Day Smoker Drug Use: none Marital Status: single Housing Status: lives with family Occupation Status: unemployed Current/Historical Medications Scheduled Aspirin (Aspirin Ec), 81 MG PO DAILY Cholecalciferol (Vitamin D3), 1 TAB PO DAILY Cyanocobalamin (Vitamin B-12), 500 MCG PO DAILY Levothyroxine Sodium (Synthroid), 200 MCG PO QAM Levothyroxine Sodium (Synthroid), 25 MCG PO DAILY Lisinopril (Zestril), 10 MG PO QPM Metformin Hcl (Glucophage), 500 MG PO BID Multivitamins/Minerals (Mvi With Minerals), 1 TAB PO DAILY Simvastatin (Zocor), 20 MG PO QPM Scheduled PRN Tramadol (Ultram), 1-2 TABS PO Q8H PRN for Pain Allergies Coded Allergies: No Known Allergies (Unverified , 10/08/16) Physical Exam Vital Signs Date Time Temp Pulse Resp B/P (MAP) Pulse Ox O2 Delivery O2 Flow Rate FiO2 06/23/17 19:35 118 18 117/72 97 06/23/17 19:15 96 Nasal Cannula 2.0 06/23/17 19:14 88 Room Air 06/23/17 19:01 38.2 117 18 127/71 91 Room Air 06/23/17 17:46 110 25 118/85 94 Room Air 06/23/17 16:49 113 06/23/17 16:45 95 Room Air 06/23/17 16:11 37.4 122 20 126/83 94 Room Air Physical Exam GENERAL: Patient is awake, alert, and in no acute distress. Patient is resting comfortably but mildly anxious appearing. EYES: The conjunctivae are clear. The pupils are round and reactive. EARS, NOSE, MOUTH AND THROAT: The nose is without any evidence of any deformity. Mucous membranes are moist tongue is midline NECK: The neck is nontender and supple. RESPIRATORY: Lung sounds diminished throughout with scattered rhonchi. Mild tachypnea. CARDIOVASCULAR: Tachycardic rate and a regular rhythm noted there are no definite murmurs rubs or gallops normal S1 normal S2 GASTROINTESTINAL: The abdomen is soft. Bowel sounds are present in all quadrants. Abdomen is nontender MUSCULOSKELETAL/EXTREMITIES: There is no evidence of gross deformity full range of motion is noted in the hips and shoulders SKIN: Circumferential cellulitis to the LLE ending at the sock line. No erythema or swelling of the left foot. NEUROLOGIC: Patient is awake alert and oriented x3 Medical Decision & Procedures ER Provider Diagnostic Interpretation: CHEST ONE VIEW PORTABLE CLINICAL HISTORY: Fever, sepsis, elevated white blood count COMPARISON STUDY: 09/13/2016 FINDINGS: The cardiac and mediastinal contours are normal. There is no focal pulmonary consolidation. There is no failure. There are no pleural effusions. Differential attenuation hemithoraces is felt to be secondary to technical factors.[ IMPRESSION: No active disease in the chest. Electronically signed by: Todd Joshi M.D. 06/23/2017 6:21 PM Dictated Date/Time: 06/23/2017 6:20 PM Laboratory Results 06/23/17 17:00 Red Blood Count 4.17, Mean Corpuscular Volume 96.2, Mean Corpuscular Hemoglobin 33.1, Mean Corpuscular Hemoglobin Concent 34.4, Mean Platelet Volume 10.4, Neutrophils (%) (Auto) 92.6, Lymphocytes (%) (Auto) 4.2, Monocytes (%) (Auto) 2.4, Eosinophils (%) (Auto) 0.1, Basophils (%) (Auto) 0.1, Neutrophils # (Auto) 17.73, Lymphocytes # (Auto) 0.81, Monocytes # (Auto) 0.46, Eosinophils # (Auto) 0.01, Basophils # (Auto) 0.02 06/23/17 17:00 Test 06/23/17 17:00 06/23/17 17:11 06/23/17 18:56 White Blood Count 19.14 K/uL (4.8-10.8) Red Blood Count 4.17 M/uL (4.7-6.1) Hemoglobin 13.8 g/dL (14.0-18.0) Hematocrit 40.1 % (42-52) Mean Corpuscular Volume 96.2 fL (80-100) Mean Corpuscular Hemoglobin 33.1 pg (25-34) Mean Corpuscular Hemoglobin Concent 34.4 g/dl (32-36) Platelet Count 198 K/uL (130-400) Mean Platelet Volume 10.4 fL (7.4-10.4) Neutrophils (%) (Auto) 92.6 % Lymphocytes (%) (Auto) 4.2 % Monocytes (%) (Auto) 2.4 % Eosinophils (%) (Auto) 0.1 % Basophils (%) (Auto) 0.1 % Neutrophils # (Auto) 17.73 K/uL (1.4-6.5) Lymphocytes # (Auto) 0.81 K/uL (1.2-3.4) Monocytes # (Auto) 0.46 K/uL (0.11-0.59) Eosinophils # (Auto) 0.01 K/uL (0-0.5) Basophils # (Auto) 0.02 K/uL (0-0.2) RDW Standard Deviation 44.8 fL (36.4-46.3) RDW Coefficient of Variation 12.9 % (11.5-14.5) Immature Granulocyte % (Auto) 0.6 % Immature Granulocyte # (Auto) 0.11 K/uL (0.00-0.02) Erythrocyte Sedimentation Rate 21 mm/hr (0-14) Prothrombin Time 13.1 SECONDS (9.0-12.0) Prothromb Time International Ratio 1.2 (0.9-1.1) Activated Partial Thromboplast Time 32.0 SECONDS (21.0-31.0) Partial Thromboplastin Ratio 1.2 Anion Gap 9.0 mmol/L (3-11) Est Creatinine Clear Calc Drug Dose 97.4 ml/min Estimated GFR () 85.9 Estimated GFR (Non- 74.1 BUN/Creatinine Ratio 9.9 (10-20) Calcium Level 9.2 mg/dl (8.5-10.1) Total Bilirubin 0.6 mg/dl (0.2-1) Direct Bilirubin 0.2 mg/dl (0-0.2) Aspartate Amino Transf (AST/SGOT) 21 U/L (15-37) Alanine Aminotransferase (ALT/SGPT) 25 U/L (12-78) Alkaline Phosphatase 66 U/L (45-117) C-Reactive Protein 22.60 mg/dl (0-0.29) Total Protein 7.0 gm/dl (6.4-8.2) Albumin 3.2 gm/dl (3.4-5.0) Bedside Lactic Acid Venous 2.03 mmol/L (0.90-1.70) Lactic Acid Level 1.7 mmol/L (0.4-2.0) Laboratory results per my review. Medications Administered Medications (Trade) Dose Ordered Sig/Noble Route Start Time Stop Time Status Last Admin Dose Admin Sodium Chloride 1,000 ml @ 999 mls/hr Q1H1M STAT IV 06/23/17 16:38 06/23/17 17:38 DC 06/23/17 16:38 999 MLS/HR Ceftriaxone Sodium (Rocephin Inj) 1 gm NOW STAT IV 06/23/17 17:15 06/23/17 17:16 DC 06/23/17 17:44 1 GM Oxycodone HCl (Roxicodone Immediate Rel Tab) 5 mg NOW STAT PO 06/23/17 17:56 06/23/17 17:57 DC 06/23/17 18:00 5 MG Acetaminophen (Tylenol Tab) 650 mg Q4H PRN PO 06/23/17 18:45 07/23/17 18:44 06/23/17 19:25 650 MG Piperacillin Sod/ Tazobactam Sod (Zosyn Iv) 4.5 gm NOW STAT IV 06/23/17 19:23 06/23/17 19:24 DC 06/23/17 19:29 4.5 GM ED Course 1634: The patient was evaluated in room C12. A complete history and physical examination were performed. 1638: Ordered NSS 1,000 ml @ 999 mls/hr IV 1715: Ordered Rocephin Inj 1 gm IV 1756: Ordered Oxycodone HCl 5 mg PO 1806: Upon reevaluation, the patient is resting. I discussed results and treatment plan with him. He verbalizes agreement and understanding. [facility] The patient will be evaluated for further management and care. Medical Decision Differential diagnosis: Etiologies such as cellulitis, abscess, MRSA infection, DVT, necrotizing fasciitis, dermatitis, drug eruption, as well as others were entertained.. Nursing notes reviewed. The patient's recent laboratory studies reviewed. The patient is a 57-year-old male who has a history of diabetes who presented to the emergency department for an evaluation of lower sternal any swelling and redness. The patient had a fever and was seen at his artery care physician's office. He had laboratory studies drawn after he left and was told to go to the emergency department for admission because of a significantly elevated white blood cell count. He was given a dose of Rocephin as well as started on Bactrim by the outpatient primary care physician. He was given another dose of Rocephin in the emergency department. He was treated with IV fluids. I discussed the patient's laboratory and radiographic studies with him. Because of the elevated white blood cell count as well as his past medical history I [facility] They've agreed to evaluate the patient in the emergency department for further management and disposition. Medication Reconcilliation Current Medication List: was personally reviewed by me Blood Pressure Screening Patient's blood pressure: Normal blood pressure Blood pressure disposition: Did not require urgent referral Consults Time Called: 180 Consulting Physician: Sabiha Parada Hospitalist Returned Call: [phone] I discussed the patient's case with her. The patient will be evaluated for further management. Impression Primary Impression: Cellulitis Additional Impression: Elevated WBC count Scribe Attestation The scribe's documentation has been prepared under my direction and personally reviewed by me in its entirety. I confirm that the note above accurately reflects all work, treatment, procedures, and medical decision making performed by me. Departure Information Dispostion Being Evaluated By Hospitalist Referrals Kevin Huggins M.D. (PCP) Patient Instructions My [facility] Problem Qualifiers Primary Impression: Cellulitis Site of cellulitis: extremity Site of cellulitis of extremity: lower extremity Laterality: left Qualified Codes: L03.116 - Cellulitis of left lower limb
[2017-06-23] MEDS ORDERED: CEFT1INJ57 IV (17:03)
[2017-06-23] MEDS ORDERED: PRED20TA PO (17:03)
[2017-06-23] MEDS ORDERED: SULF800T23 PO (17:03)
[2017-06-23] MEDS ORDERED: ATOR-24 PO (17:03)
[2017-06-23] MEDS ORDERED: DICL-201 PO (17:03)
[2017-06-23] MEDS ORDERED: LEVO25TA PO (17:04)
[2017-06-23] MEDS ORDERED: ONDA8TAB6 PO (17:12)
[2017-06-23] MEDS ORDERED: ALBU18002 INH (17:12)
[2017-06-23] MEDS ORDERED: TRAZ50TA35 PO (17:12)
[2017-06-23] MEDS ORDERED: MULT-513 PO (17:12)
[2017-06-23] MEDS ORDERED: CHOL1000 PO (17:12)
[2017-06-23] MEDS ORDERED: CYAN500T PO (17:12)
[2017-06-23] MEDS ORDERED: FLUT0.15 (17:12)
[2017-06-23] MEDS ORDERED: TRAM-10 PO (17:12)
[2017-06-23] MEDS ORDERED: OXYC1TAB3 PO (17:12)
[2017-06-23] MEDS ORDERED: ASPI81TA28 PO (17:12)
[2017-06-23] MEDS ORDERED: CEFTRIAXONE SOD INJ 1 GM ADDVIAL IV STA (17:15)
[2017-06-23 17:16] LABS: BASO % 0.1 %; BASO ABS # 0.02 K/uL (0-0.2); COMPLETE YES; EOS % 0.1 %; HEMATOCRIT 40.1 % (42-52); IG% 0.6 %; LYMPH % 4.2 %; LYMPH ABS # 0.81 K/uL (1.2-3.4); MEAN CELL VOLUME 96.2 fL (80-100); MEAN CORPUSCULAR HEMOGLOBIN 33.1 pg (25-34); MEAN CORPUSCULAR HGB CONC 34.4 g/dl (32-36); MEAN PLATELET VOLUME 10.4 fL (7.4-10.4); MONO % 2.4 %; NEUT % 92.6 %; PLATELET COUNT 198 K/uL (130-400); RED BLOOD COUNT 4.17 M/uL (4.7-6.1); WHITE BLOOD COUNT 19.14 K/uL (4.8-10.8)
[2017-06-23 17:27] LABS: INR 1.2 (0.9-1.1); PARTIAL THROMBOPLASTIN RATIO 1.2; PROTHROMBIN TIME (PATIENT) 13.1 SECONDS (9.0-12.0)
[2017-06-23 17:34] LABS: BUN/CREATININE RATIO 9.9 (10-20); CALCIUM 9.2 mg/dl (8.5-10.1); CREATININE 1.1 mg/dl (0.60-1.40); POTASSIUM 3.6 mmol/L (3.5-5.1)
[2017-06-23 17:50] LABS: C-REACTIVE PROTEIN 22.6 mg/dl (0-0.29)
[2017-06-23] MEDS ORDERED: OXYCODONE HCL IR 5 MG TAB (IMMEDIATE RELEASE) PO STA (17:56)
--- NOTE | 2017-06-23 18:23 | DIAGNOSTIC IMAGING REPORT ---
CHEST ONE VIEW PORTABLE CLINICAL HISTORY: Fever, sepsis, elevated white blood count COMPARISON STUDY: 09/13/2016 FINDINGS: The cardiac and mediastinal contours are normal. There is no focal pulmonary consolidation. There is no failure. There are no pleural effusions. Differential attenuation hemithoraces is felt to be secondary to technical factors.[ IMPRESSION: No active disease in the chest. Electronically signed by: Todd Joshi M.D. 06/23/2017 6:21 PM Dictated Date/Time: 06/23/2017 6:20 PM
[2017-06-23] MEDS ORDERED: ONDANSETRON INJ 2 MG/ML 2 ML VIAL IV PRN (18:45)
[2017-06-23] MEDS ORDERED: DEXTROSE 50% 50 ML SYR IV PRN (19:00)
[2017-06-23] MEDS ORDERED: GLUCOSE 10 TABS/TUBE PO PRN (19:00)
[2017-06-23] MEDS ORDERED: GLUCAGON FOR INJ 1 MG VIAL SQ PRN (19:00)
[2017-06-23] MEDS ORDERED: OPTIRAY 320 IV PRN (19:00)
[2017-06-23] MEDS ORDERED: GLUCOSE 40% GEL 15 GM TUBE PO PRN (19:00)
[2017-06-23] MEDS ORDERED: PIPERACILLIN/TAZOBACTAM 4.5 GM/100ML D5W IV STA (19:23)
[2017-06-23] MEDS: ACETAMINOPHEN 325 MG TAB PO PRN (19:25)
[2017-06-23] MEDS ORDERED: PIPERACILL/TAZOBAC CONSULT ACTIVE PRN (19:30)
[2017-06-23] MEDS ORDERED: VANCOMYCIN CONSULT ACTIVE PRN (19:30)
[2017-06-23] MEDS ORDERED: VANCOMYCIN INJ 2,750 MG in SODIUM CHLORIDE 0.9% 500ML 500 ML IV STA (19:40)
--- NOTE | 2017-06-23 19:57 | History and Physical ---
History & Physical Date & Time of Service: Jun 23, 2017 ~ 18:15 Chief Complaint: Left Leg Redness, Pain Primary Care Physician: Kevin Huggins M.D. History of Present Illness Source: patient 57 year old male who presents to the ER with LLE redness and pain. Patient reports his symptoms started yesterday. He reports he first noticed the redness to his LLE in the afternoon. He reports it has been progressively getting worse. He first noticed it on the anterior aspect of his ferro. He also had associated pain in the area. He had chills yesterday and suspected he had a fever but did not take his temperature. He was seen at his PCPs office today and was given a dose of IM Rocephin and prescription for Bactrim. He was noted be febrile in the office at 103.7. He had outpatient labs that showed a leukocytosis so he was referred to the ED for further evaluation. He noted last week his dog scratched his leg. He denies any other known trauma or injury to the leg. He denies any recent travel. He had his left knee replaced several months ago and has had persistent pain in the left knee. He feels like the pain is a little worse than normal. He denies chest pain and shortness of breath. He has had a poor appetite but denies abdominal pain, vomiting, or diarrhea. No urinary symptoms. In the ED, patient is found to have WBC 18K and tachycardic in the low 100s. BP is stable. POC lactic acid is mildly elevated. He was given IV Rocephin and started on IVF. Past Medical/Surgical History Medical Problems: (1) DM type 2 (diabetes mellitus, type 2) Status: Chronic (2) Dyslipidemia Status: Chronic (3) HTN (hypertension) Status: Chronic (4) Hypothyroidism Status: Chronic (5) MICAH (obstructive sleep apnea) Status: Chronic Surgical Problems: (1) History of left knee replacement Status: Chronic Family History FH: CAD (coronary artery disease) FATHER Kidney disease BROTHER Social History Smoking Status: Current Every Day Smoker Alcohol Use: 4-5 beers/night and one shot/night Immunizations History of Influenza Vaccine: Yes Influenza Vaccine Date: Jun 21, 2016 History of Tetanus Vaccine?: Yes Tetanus Immunization Date: Nov 23, 2007 History of Pneumococcal: Yes Pneumococcal Date: February 17, 2006 Allergies Coded Allergies: No Known Allergies (Unverified , 10/08/16) Home Medications Scheduled Aspirin (Aspirin Ec), 81 MG PO DAILY Cholecalciferol (Vitamin D3), 1 TAB PO DAILY Cyanocobalamin (Vitamin B-12), 500 MCG PO DAILY Levothyroxine Sodium (Synthroid), 200 MCG PO QAM Levothyroxine Sodium (Synthroid), 25 MCG PO DAILY Lisinopril (Zestril), 10 MG PO QPM Metformin Hcl (Glucophage), 500 MG PO BID Multivitamins/Minerals (Mvi With Minerals), 1 TAB PO DAILY Simvastatin (Zocor), 20 MG PO QPM Scheduled PRN Tramadol (Ultram), 1-2 TABS PO Q8H PRN for Pain Review of Systems ROS per HPI, all other systems reviewed and negative Physical Exam Vital Signs Date Time Temp Pulse Resp B/P (MAP) Pulse Ox O2 Delivery O2 Flow Rate FiO2 06/23/17 19:35 118 18 117/72 97 06/23/17 19:15 96 Nasal Cannula 2.0 06/23/17 19:14 88 Room Air 06/23/17 19:01 38.2 117 18 127/71 91 Room Air 06/23/17 17:46 110 25 118/85 94 Room Air 06/23/17 16:49 113 06/23/17 16:45 95 Room Air 06/23/17 16:11 37.4 122 20 126/83 94 Room Air General Appearance: no apparent distress Head: normocephalic, atraumatic Eyes: normal inspection, sclerae normal ENT: hearing grossly normal Neck: supple, no JVD Respiratory/Chest: no respiratory distress, + decreased breath sounds Cardiovascular: regular rate, rhythm, + pertinent finding (+1-2 edema RLE, +2- 3 edema LLE) Abdomen/GI: normal bowel sounds, non tender, soft Extremities/Musculoskelatal: + pertinent finding (pain with flexion and extension of the left knee) Neurologic/Psych: no motor/sensory deficits, alert, normal mood/affect, oriented x 3 Skin: + pertinent finding (erythema noted to to the anterior and posterior aspects of the LLE extending from the ankle up to the knee, erythema noted over prior TKA incisional scar; very warm to touch; no open areas or drainage) Diagnostics Laboratory Results Results Past 24 Hours Test 06/23/17 17:00 06/23/17 17:11 06/23/17 18:56 Range/Units White Blood Count 19.14 4.8-10.8 K/uL Red Blood Count 4.17 4.7-6.1 M/uL Hemoglobin 13.8 14.0-18.0 g/dL Hematocrit 40.1 42-52 % Mean Corpuscular Volume 96.2 80-100 fL Mean Corpuscular Hemoglobin 33.1 25-34 pg Mean Corpuscular Hemoglobin Concent 34.4 32-36 g/dl Platelet Count 198 130-400 K/uL Mean Platelet Volume 10.4 7.4-10.4 fL Neutrophils (%) (Auto) 92.6 % Lymphocytes (%) (Auto) 4.2 % Monocytes (%) (Auto) 2.4 % Eosinophils (%) (Auto) 0.1 % Basophils (%) (Auto) 0.1 % Neutrophils # (Auto) 17.73 1.4-6.5 K/uL Lymphocytes # (Auto) 0.81 1.2-3.4 K/uL Monocytes # (Auto) 0.46 0.11-0.59 K/uL Eosinophils # (Auto) 0.01 0-0.5 K/uL Basophils # (Auto) 0.02 0-0.2 K/uL RDW Standard Deviation 44.8 36.4-46.3 fL RDW Coefficient of Variation 12.9 11.5-14.5 % Immature Granulocyte % (Auto) 0.6 % Immature Granulocyte # (Auto) 0.11 0.00-0.02 K/uL Erythrocyte Sedimentation Rate 21 0-14 mm/hr Prothrombin Time 13.1 9.0-12.0 SECONDS Prothromb Time International Ratio 1.2 0.9-1.1 Activated Partial Thromboplast Time 32.0 21.0-31.0 SECONDS Partial Thromboplastin Ratio 1.2 Sodium Level 138 136-145 mmol/L Potassium Level 3.6 3.5-5.1 mmol/L Chloride Level 102 98-107 mmol/L Carbon Dioxide Level 27 21-32 mmol/L Anion Gap 9.0 3-11 mmol/L Blood Urea Nitrogen 11 7-18 mg/dl Creatinine 1.10 0.60-1.40 mg/dl Est Creatinine Clear Calc Drug Dose 97.4 ml/min Estimated GFR () 85.9 Estimated GFR (Non- 74.1 BUN/Creatinine Ratio 9.9 10-20 Random Glucose 144 70-99 mg/dl Calcium Level 9.2 8.5-10.1 mg/dl Total Bilirubin 0.6 0.2-1 mg/dl Direct Bilirubin 0.2 0-0.2 mg/dl Aspartate Amino Transf (AST/SGOT) 21 15-37 U/L Alanine Aminotransferase (ALT/SGPT) 25 12-78 U/L Alkaline Phosphatase 66 45-117 U/L C-Reactive Protein 22.60 0-0.29 mg/dl Total Protein 7.0 6.4-8.2 gm/dl Albumin 3.2 3.4-5.0 gm/dl Bedside Lactic Acid Venous 2.03 0.90-1.70 mmol/L Lactic Acid Level 1.7 0.4-2.0 mmol/L Microbiology Results 06/23/17 Blood Culture, Received Pending 06/23/17 Blood Culture, Received Pending 06/23/17 Urine Culture, Received Pending Diagnostic Radiology CXR IMPRESSION: No active disease in the chest. Impression Assessment and Plan SEPSIS DUE TO LLE CELLULITIS - admit to tele - patient presenting to the ED as a referral from his PCP's office for evaluation of leukocytosis and LLE cellulitis; symptoms present x 1 day - meets sepsis criteria - WBC 18K, tachycardic, febrile; BP stable, normal lactic acid - s/p Rocephin in the ED; will start Vanco and Zosyn for now; IVF - concern for possible left septic knee joint (hx of left TKA 09/2016) - will obtain CT scan to evaluate for effusion; orthopedics consult - check doppler to r/o DVT - possible bacteremia; will check echo to r/o endocarditis - blood cultures pending; no open areas or drainage to culture DM - hgb a1c 5.3 03/2017 - hold oral agents and utilize SSI while hospitalized HTN - will hold Lisinopril due to dye load with CT - resume as renal functions and BP allow - BP stable and controlled HYPOTHYROIDISM - check TSH - continue home dose of levothyroxine for now DYSLIPIDEMIA - continue statin DVT PROPHYLAXIS - SQ Lovenox DISPO: telemetry monitoring, admission Attending Physician Addendum In my clinical judgment this beneficiary meets acute admission criteria, established by [facility], that includes being hospitalized through two midnights. This is a 57 year old M with cellulitis x 1 day however may be complicated medical case because affected left leg is also the site of left knee replacement which was performed in September of 2016. There is redness and erythema from leg that extends to that knee. He does not appear to be in distress and breathing comfortably on room air but patient has fever, leukocytosis, and tachycardia consistent with sepsis. He will need IV fluids, broad spectrum antibiotics, and imaging studies to rule out leg complications such as abscess. Given that he is tachycardia with this prosthetic knee, will also get cardiac imaging to rule out endocarditis. Follow up cultures and obtain surgical consult. Level of Care Telemetry Resuscitation Status FULL RESUSCITATION VTE Prophylaxis VTE Risk Assessment Done? Y/N: Yes Risk Level: Moderate Given or contraindicated: Unfractionated heparin SQ
[2017-06-23 20:00] VITALS: BP 114/74; PULSE 118; TEMP 38.8; O2SAT 92
--- NOTE | 2017-06-23 20:25 | DIAGNOSTIC IMAGING REPORT ---
CT LEFT LOWER EXTREMITY WITH CONTRAST CT DOSE: 616.88 mGy.cm CLINICAL HISTORY: Left knee pain. Possible septic arthritis. Possible joint effusion. TECHNIQUE: The patient was scanned in a dynamic helical fashion during intravenous administration of 112 cc of Optiray 320. Imaging was obtained from the lower thigh to the foot. A dose lowering technique was utilized adhering to the principles of ALARA. COMPARISON STUDY: Conventional radiographic study dated 10/08/2016 FINDINGS: There is marked artifact secondary to a left knee arthroplasty. There are no fluid collections to indicate an abscess. No intramuscular masses are visualized. There is diffuse soft tissue edema. No fractures are visualized. There is no evidence of a significant joint effusion. There are multiple soft tissue calcifications within the lower anteromedial leg. IMPRESSION: 1. Postsurgical changes of a total left knee arthroplasty 2. No evidence of acute fracture 3. No evidence of joint effusion 4. Diffuse edema. 5. No CT evidence of osteomyelitis Electronically signed by: Todd Joshi M.D. 06/23/2017 8:24 PM Dictated Date/Time: 06/23/2017 8:18 PM
--- NOTE | 2017-06-23 20:35 | Pharmacy Progress Note ---
Pharmacy Abx Initial Consult Date of Service Jun 23, 2017. Pharmacy Dosing Scope Date of Consult: 06/23/17 Consultation requested by: RENARD Elliott Pharmacy is consulted to initiate Vancomycin and Zosyn IV/PO dosing therapy, order appropriate labs and adjust drug dose/frequency. Subjective The patient is a 57 year old male admitted on Jun 23, 2017 at 18:49 with sepsis , cellulitis. Objective Height (Feet): 5 Height (Inches): 6.00 Weight (Kilograms): 136.600 Vital Signs (Past 12Hrs) Vital Signs Past 12 Hours Date Time Temp Pulse Resp B/P (MAP) Pulse Ox O2 Delivery O2 Flow Rate FiO2 06/23/17 19:35 118 18 117/72 97 06/23/17 19:15 96 Nasal Cannula 2.0 06/23/17 19:14 88 Room Air 06/23/17 19:01 38.2 117 18 127/71 91 Room Air 06/23/17 17:46 110 25 118/85 94 Room Air 06/23/17 16:49 113 06/23/17 16:45 95 Room Air 06/23/17 16:11 37.4 122 20 126/83 94 Room Air Lab Results (24Hrs) Laboratory Tests (24 Hours) Test 06/23/17 17:00 06/23/17 18:56 C-Reactive Protein 22.60 mg/dl (0-0.29) H Erythrocyte Sedimentation Rate 21 mm/hr (0-14) H White Blood Count 19.14 K/uL (4.8-10.8) H Red Blood Count 4.17 M/uL (4.7-6.1) L Hemoglobin 13.8 g/dL (14.0-18.0) L Hematocrit 40.1 % (42-52) L Mean Corpuscular Volume 96.2 fL (80-100) Mean Corpuscular Hemoglobin 33.1 pg (25-34) Mean Corpuscular Hemoglobin Concent 34.4 g/dl (32-36) Platelet Count 198 K/uL (130-400) Mean Platelet Volume 10.4 fL (7.4-10.4) Neutrophils (%) (Auto) 92.6 % Lymphocytes (%) (Auto) 4.2 % Monocytes (%) (Auto) 2.4 % Eosinophils (%) (Auto) 0.1 % Basophils (%) (Auto) 0.1 % Neutrophils # (Auto) 17.73 K/uL (1.4-6.5) H Lymphocytes # (Auto) 0.81 K/uL (1.2-3.4) L Monocytes # (Auto) 0.46 K/uL (0.11-0.59) Eosinophils # (Auto) 0.01 K/uL (0-0.5) Basophils # (Auto) 0.02 K/uL (0-0.2) Lactic Acid Level 1.7 mmol/L (0.4-2.0) Micro Results Date/Time Source Procedure Growth Status 06/23/17 18:55 Blood Blood Culture Pending Received 06/23/17 17:00 Blood Blood Culture Pending Received 06/23/17 18:05 Urine , Clean Catch Urine Culture Pending Received Assessment & Plan Assessment 57 year old male admitted with sepsis, left leg cellulitis * Pt evaluated at [facility] yesterday - > administered Rocephin IM + Bactrim * Febrile, leukocytosis, tachycardic Plan Vanco + Zosyn for treatment of sepsis, left leg cellulitis Vancomycin IV * Loading dose: 2750 mg (20 mg/kg) * Maintenance dose: 1750 mg IV (12.8 mg/kg) every 12 hours * Goal trough level for sepsis : 15 to 20 mcg/mL * Trough level ordered for 06/25/17 * A less than traditional dose and extended dosing interval have been selected due to likelihood of drug accumulation in obese patient Piperacillin/tazobactam * 4.5 g bolus administered over 30 minutes, then 4.5 g IV extended infusion every 8 hours for CrCl greater than 20 mL/min * Aggressive dosing selected due to critically ill status/BMI 35 or more/ history of cystic fibrosis. Pharmacy will continue to follow and will adjust dose/frequency as necessary. Thank you.
[2017-06-23] MEDS: INSULIN ASPART 100 UNITS/ML 3 ML PEN SC SCH (21:00)
[2017-06-23] MEDS: SODIUM CHLORIDE 0.9% 1000ML 1,000 ML IV SCH (22:04)
[2017-06-23] MEDS: ENOXAPARIN 40 MG/0.4 ML SYR SQ SCH (22:05)
[2017-06-23] MEDS: SIMVASTATIN 20 MG TAB PO SCH (22:06)
[2017-06-23 22:13] VITALS: TEMP 36.8
[2017-06-23 22:22] VITALS: BP 114/74; PULSE 118; TEMP 38.8; O2SAT 92; Ht 167.6 cm; Wt 141.0 kg
--- NOTE | 2017-06-23 22:45 | DIAGNOSTIC IMAGING REPORT ---
ULTRASOUND VENOUS DOPPLER ULTRASOUND OF THE LEFT LOWER EXTREMITY CLINICAL HISTORY: Left leg edema COMPARISON STUDY: No previous studies for comparison. FINDINGS: Real-time and color flow Doppler imaging were performed. Flow was seen within the femoral, popliteal and calf veins with no intraluminal thrombus demonstrated. The saphenous vein is patent. Note is made of prominent fatty replaced left inguinal lymph nodes the largest of which measures 41 x 21 x 36 mm. IMPRESSION: No evidence of left lower extremity DVT. Electronically signed by: Todd Joshi M.D. 06/23/2017 10:44 PM Dictated Date/Time: 06/23/2017 10:43 PM
[2017-06-23] MEDS ORDERED: INFLUENZA ADMINISTRATION CHARGE ONE (23:00)
[2017-06-23 23:45] VITALS: BP 102/67; PULSE 93; TEMP 36.8; O2SAT 90
[2017-06-23] MEDS: PIPERACILL/TAZOBAC IV 4.5 GM in DEXTROSE 5% 100ML 100 ML IV SCH (23:55)
[2017-06-24] VITALS (7 sets, daily range): BP systolic 91–112; BP diastolic 50–63; PULSE 90–108; TEMP 36.8–39.1; O2SAT 90–97
[2017-06-24 03:47] LABS: MANUAL MICROSCOPIC REQUIRED? NO; REVIEW REQ? YES; URINE APPEARANCE CLEAR (CLEAR); URINE BILIRUBIN NEG (NEG); URINE COLOR YELLOW; URINE EPITHELIAL CELL AUTO >30 /lpf (0-5); URINE NITRITE NEG (NEG); URINE PH 5.5 (4.5-7.5); URINE SPECIFIC GRAVITY 1.009 (1.000-1.030); UROBILINOGEN NEG (NEG)
[2017-06-24] MEDS ORDERED: VANCOMYCIN INJ 1,750 MG in SODIUM CHLORIDE 0.9% 500ML 500 ML IV SCH (04:00)
[2017-06-24] MEDS: SODIUM CHLORIDE 0.9% 1000ML 1,000 ML IV SCH ×3 (04:14→21:48)
[2017-06-24] MEDS: ACETAMINOPHEN 325 MG TAB PO PRN (04:17)
[2017-06-24] MEDS: LEVOTHYROXINE 200 MCG TAB PO SCH (05:33)
[2017-06-24] MEDS: LEVOTHYROXINE 25 MCG TAB PO SCH (05:33)
[2017-06-24 05:56] LABS: HEMATOCRIT 34.4 % (42-52); MEAN CELL VOLUME 96.9 fL (80-100); PLATELET COUNT 151 K/uL (130-400); RED BLOOD COUNT 3.55 M/uL (4.7-6.1); WHITE BLOOD COUNT 15.94 K/uL (4.8-10.8)
[2017-06-24 06:21] LABS: BUN/CREATININE RATIO 14.5 (10-20); CALCIUM 8.1 mg/dl (8.5-10.1); CREATININE 0.86 mg/dl (0.60-1.40); POTASSIUM 3.4 mmol/L (3.5-5.1)
[2017-06-24] MEDS ORDERED: ETHYL CHLORIDE AER SPR 100 ML CAN EXT SCH (07:45)
--- NOTE | 2017-06-24 07:55 | DIAGNOSTIC IMAGING REPORT ---
L KNEE 1 OR 2 VIEWS ROUTINE CLINICAL HISTORY: post tka / possible infection pain COMPARISON: CT 06/23/2017 DISCUSSION: Status post left knee arthroplasty. Extensive soft tissue edema. No significant joint effusion by routine film criteria. Good contact between prosthetic and underlying bone. IMPRESSION: 1. Extensive soft tissue edema. 2. Total knee arthroplasty good position. 3. No significant joint effusion The above report was generated using voice recognition software. It may contain grammatical, syntax or spelling errors. Electronically signed by: Abran Amos M.D. 06/24/2017 7:54 AM Dictated Date/Time: 06/24/2017 7:52 AM
[2017-06-24] MEDS: CYANOCOBALAMIN 500 MCG TAB (VIT B-12) PO SCH (07:57)
[2017-06-24] MEDS: ASPIRIN 81 MG ECTAB PO SCH (07:57)
[2017-06-24] MEDS: CEROVITE ADV FORMULA TAB PO SCH (07:57)
[2017-06-24] MEDS: CHOLECALCIFEROL 1000 INTER.UNIT TAB PO SCH (07:57)
[2017-06-24] MEDS ORDERED: INFLUENZA VIRUS QUAD VACCINE 0.5 ML SYR IM. ONE (08:00)
[2017-06-24] MEDS: PIPERACILL/TAZOBAC IV 4.5 GM in DEXTROSE 5% 100ML 100 ML IV SCH ×2 (08:01→16:26)
[2017-06-24] MEDS: INSULIN ASPART 100 UNITS/ML 3 ML PEN SC SCH ×4 (08:04→21:00)
--- NOTE | 2017-06-24 08:18 | ORTHOPEDIC PROGRESS NOTE ---
DATE: 06/24/2017 HISTORY OF PRESENT ILLNESS: The patient is a 57-year-old white male known to our practice who is status post left TKA by Dr. Lanier in September 2016. The patient states that on Friday, he began having some increased redness of his lower extremity and some tingling and some discomfort. This continued to get worse and he began having some fevers and chills and also some nausea without vomiting. He says that he was having some mild pain with ambulation and he went to see his primary care physician on Friday. At that time, he was noted to have a temperature of 103.7 and intramuscular dose of Rocephin was given and a prescription for Bactrim was prescribed. He has apparently had some persistent pain in the knee, post-TKA; however, apparently was described as being a little bit worse. He ended up coming into the Emergency Room to be evaluated. He seen by the staff and was admitted by [facility]. PAST MEDICAL HISTORY: Diabetes mellitus type 2, dyslipidemia, hypertension, hypothyroidism, obstructive sleep apnea. PAST SURGICAL HISTORY: Previous TKA in September of 2016. FAMILY HISTORY: Coronary artery disease and kidney disease. SOCIAL HISTORY: The patient is a current smoker and drinks 4-5 beers nightly. MEDICATIONS: Aspirin 81 mg p.o. daily, vitamin D3 one tab p.o. daily, vitamin B12 500 mcg p.o. daily, levothyroxine 225 mcg p.o. daily, lisinopril 10 mg p.o. q.p.m., metformin 500 mg p.o. b.i.d., multivitamin 1 tab p.o. daily, simvastatin 20 mg p.o. q.p.m. and tramadol 1-2 tabs p.o. q. 8 hours p.r.n. for pain. ALLERGIES: NKDA. REVIEW OF SYSTEMS: As per admitting history and physical. PHYSICAL EXAMINATION: GENERAL: The patient is an obese white male who is alert and oriented x3 and in no acute distress, pleasant and cooperative. EXTREMITIES: Focusing on the exam on the left lower extremity, he has a moderate cellulitis of his lower extremity below the knee, mainly around the calf and anterior portion of the leg going down to the ankle. He has some mild erythema at the foot at this time with some mild swelling. This area is tender on palpation and the redness creeps up all the way up to his knee incision and he has mild erythema surrounding his left knee incision from his previous TKA. There is no major erythema around the whole knee itself. There does not seem to be any kind of moderate to large effusion in the knee at this time. I can palpate the knee with some mild tenderness on the lateral aspect of the patella, essentially minimal discomfort on palpation over the medial aspect of the knee at this time. Upon lifting the leg up and taking him through passive range of motion, I can take him through passive range of motion from extension to approximately 60-70 degrees of flexion with only minimal to no discomfort. There were no gross motor or sensory deficits seen at this time. No areas of open wounds or drainage. LABORATORY DATA: Admission white count was 19, is now down to 15. Sed rate was 21. CRP is 22.6. IMAGING DATA: CT of the lower extremity showed postsurgical changes. No evidence of fracture, no evidence of joint effusion and diffuse edema of the lower extremity, and no evidence of osteomyelitis. ASSESSMENT: Cellulitis, left lower extremity. PLAN: We will go ahead and get an AP and lateral plain film of the left knee at this time. With the way the patient examines, I do not believe that his knee is infected; however, I will have Dr. Smith who is here today examine the patient a little bit later and also order an aspiration kit at the bedside in case aspiration is felt to be warranted. Plan for continued IV antibiotics per medicine service and reassessment later this afternoon with Dr. Smith.
[2017-06-24] MEDS ORDERED: POTASSIUM CHLORIDE 20 MEQ TABCR PO ONE (08:30)
--- NOTE | 2017-06-24 10:46 | ECHOCARDIOGRAM REPORT ---
*NOTICE TO RECEIVING REPUBLICAN AGENCY This information is strictly Confidential and protected under [place] law. [place] law prohibits you from making any further disclosure of this information unless further disclosure is expressly permitted by the written consent of the person to whom it pertains or is authorized by law. A general authorization for the release of medical or other information is not sufficient for this purpose. Hospital accepts no responsibility if the information is made available to any other person, INCLUDING THE PATIENT. Interpretation Summary * Name: JAZZY SPENCER I Study Date: 06/24/2017 06:36 AM BP: 100/50 mmHg * Patient Location: [facility], 1928–1983 HR: 108 * : 1960 (M/d/yyyy) Gender: Male Height: 66 in * Age: 57 yrs Ethnicity: [place] Weight: 300 lb * Ordering Physician: Sabiha Waller * Performed By: Brittni Quigley RDCS * * Reason For Study: Endocarditis * BSA: 2.4 m2 * -- Conclusions -- * The left ventricle is normal in size. * There is borderline concentric left ventricular hypertrophy. * The left ventricular wall motion is normal. * Left ventricular systolic function is normal. * Ejection Fraction = 60-65%. * There are no valve abnormalities visualized. Procedure Details * A complete two-dimensional transthoracic echocardiogram was performed (2D, M-mode, Doppler and color flow Doppler). Left Ventricle * The left ventricle is normal in size. * There is borderline concentric left ventricular hypertrophy. * Left ventricular systolic function is normal. * Ejection Fraction = 60-65%. * The left ventricular wall motion is normal. Right Ventricle * The right ventricle is normal in size and function. Atria * The left atrial size is normal. * Right atrial size is normal. * No ASD detected; PFO is not assessed. Mitral Valve * The mitral valve is normal. * There is no mitral valve stenosis. * There is trace mitral regurgitation. Tricuspid Valve * The tricuspid valve is normal. * There is no tricuspid stenosis. * There is trace tricuspid regurgitation. * Right ventricular systolic pressure is normal. Aortic Valve * The aortic valve is trileaflet. * No hemodynamically significant valvular aortic stenosis. * No aortic regurgitation is present. Pulmonic Valve * The pulmonic valve is not well visualized. Great Vessels * The aortic root is normal size. Pericardium/Pleural * There is no pericardial effusion. Great Vessels * Normal inferior vena cava diameter and respiratory variation suggests normal central venous pressure. MMode 2D Measurements and Calculations IVSd 1.0 cm LVIDd 4.9 cm LVIDs 3.3 cm LVPWd 1.0 cm IVS/LVPW 0.99 FS 33.4 % EDV(Teich) 112.3 ml ESV(Teich) 42.8 ml EF(Teich) 61.9 % EDV(cubed) 117.0 ml ESV(cubed) 34.6 ml EF(cubed) 70.4 % LV mass(C)d 180.2 grams LV mass(C)dI 75.8 grams/m\S\2 SV(Teich) 69.5 ml SI(Teich) 29.2 ml/m\S\2 SV(cubed) 82.4 ml SI(cubed) 34.7 ml/m\S\2 Ao root diam 3.3 cm Ao root area 8.5 cm\S\2 ACS 2.2 cm LA dimension 3.5 cm asc Aorta Diam 3.1 cm LA/Ao 1.1 LVOT diam 2.0 cm LVOT area 3.2 cm\S\2 LVAd ap4 36.0 cm\S\2 LVLd ap4 8.2 cm EDV(MOD-sp4) 127.5 ml EDV(sp4-el) 134.1 ml LVAs ap4 22.1 cm\S\2 LVLs ap4 7.0 cm ESV(MOD-sp4) 56.8 ml ESV(sp4-el) 59.0 ml EF(MOD-sp4) 55.5 % EF(sp4-el) 56.0 % LVAd ap2 38.0 cm\S\2 LVLd ap2 8.6 cm EDV(MOD-sp2) 137.6 ml EDV(sp2-el) 142.1 ml LVAs ap2 22.7 cm\S\2 LVLs ap2 7.3 cm ESV(MOD-sp2) 58.8 ml ESV(sp2-el) 60.5 ml EF(MOD-sp2) 57.2 % EF(sp2-el) 57.5 % LVLd %diff 5.1 % EDV(MOD-bp) 136.8 ml LVLs %diff 3.3 % ESV(MOD-bp) 59.0 ml EF(MOD-bp) 56.9 % SV(MOD-sp4) 70.7 ml SI(MOD-sp4) 29.8 ml/m\S\2 SV(MOD-sp2) 78.8 ml SI(MOD-sp2) 33.1 ml/m\S\2 SV(MOD-bp) 77.8 ml SI(MOD-bp) 32.8 ml/m\S\2 SV(sp4-el) 75.2 ml SI(sp4-el) 31.6 ml/m\S\2 SV(sp2-el) 81.7 ml SI(sp2-el) 34.4 ml/m\S\2 Doppler Measurements and Calculations MV E max marybeth 85.4 cm/sec MV A max marybeth 82.5 cm/sec MV E/A 1.0 MV dec time 0.21 sec Ao V2 max 156.4 cm/sec Ao max PG 9.8 mmHg Ao max PG (full) -0.14 mmHg JULIETTE(V,A) 3.2 cm\S\2 JULIETTE(V,D) 3.2 cm\S\2 LV V1 max PG 9.9 mmHg LV V1 max 157.5 cm/sec PA V2 max 97.7 cm/sec PA max PG 3.8 mmHg PA acc slope 366.4 cm/sec\S\2 PA acc time 0.18 sec TR max marybeth 116.2 cm/sec PA pr(Accel) -0.22 mmHg
[2017-06-24] MEDS: VANCOMYCIN INJ 1,750 MG in SODIUM CHLORIDE 0.9% 500ML 500 ML IV SCH (13:09)
--- NOTE | 2017-06-24 16:11 | Orthopedic Progress Note ---
Orthopedic Progress Note Date of Service Jun 24, 2017. Objective Cellulitis LLE, good ROM to knee, no significant effusion, no significant TTP Date Time Temp Pulse Resp B/P (MAP) Pulse Ox O2 Delivery O2 Flow Rate FiO2 06/24/17 14:59 37.4 92 18 112/63 (79) 96 06/24/17 12:30 Room Air 06/24/17 11:34 36.8 91 18 91/51 (64) 95 06/24/17 08:00 Room Air 06/24/17 07:57 37.1 90 18 93/59 (70) 97 06/24/17 06:38 36.8 95 2.0 06/24/17 04:12 38.1 108 20 100/50 (67) 90 Room Air 06/24/17 04:10 Room Air 06/24/17 00:01 Room Air 06/23/17 23:45 36.8 93 18 102/67 (79) 90 Room Air 06/23/17 22:22 38.8 118 18 114/74 92 Room Air 06/23/17 22:13 36.8 06/23/17 20:00 38.8 118 18 114/74 (87) 92 Room Air 06/23/17 19:35 118 18 117/72 97 06/23/17 19:15 96 Nasal Cannula 2.0 06/23/17 19:14 88 Room Air 06/23/17 19:01 38.2 117 18 127/71 91 Room Air 06/23/17 17:46 110 25 118/85 94 Room Air 06/23/17 16:49 113 06/23/17 16:45 95 Room Air 06/23/17 16:11 37.4 122 20 126/83 94 Room Air Laboratory Results 24 Hours: Test 06/23/17 17:00 06/24/17 05:40 White Blood Count 19.14 K/uL Red Blood Count 4.17 M/uL Hemoglobin 13.8 g/dL 11.7 g/dL Hematocrit 40.1 % 34.4 % Mean Corpuscular Volume 96.2 fL Mean Corpuscular Hemoglobin 33.1 pg Mean Corpuscular Hemoglobin Concent 34.4 g/dl Platelet Count 198 K/uL Mean Platelet Volume 10.4 fL Neutrophils (%) (Auto) 92.6 % Lymphocytes (%) (Auto) 4.2 % Monocytes (%) (Auto) 2.4 % Eosinophils (%) (Auto) 0.1 % Basophils (%) (Auto) 0.1 % Neutrophils # (Auto) 17.73 K/uL Lymphocytes # (Auto) 0.81 K/uL Monocytes # (Auto) 0.46 K/uL Eosinophils # (Auto) 0.01 K/uL Basophils # (Auto) 0.02 K/uL Prothromb Time International Ratio 1.2 Prothrombin Time 13.1 SECONDS Assessment & Plan Assessment: LLE cellulitis Plan: His knee exam is relatively benign. I do not feel the cellulitis has involved the joint. I do not feel aspiration is needed at this time. Recommend continued IV ABX as per medicine. Will sign off. Thank you.
--- NOTE | 2017-06-24 16:46 | Progress Note ---
Medicine Progress Note Date & Time of Visit: Jun 24, 2017 at 16:27. Subjective Pt was seen and examined Lying in bed comfortable with no distress Pt said that the redness in his left leg seems to get improved slightly deniers any fever, palpitation, dizziness and SOB Objective Last 8 Hrs Date Time Temp Pulse Resp B/P (MAP) Pulse Ox O2 Delivery O2 Flow Rate FiO2 06/24/17 14:59 37.4 92 18 112/63 (79) 96 06/24/17 12:30 Room Air 06/24/17 11:34 36.8 91 18 91/51 (64) 95 Physical Exam: General- No acute distress Head- atraumatic Eyes- PERRL, EOMI ENT- oropharynx clear Neck- supple, no JVD Lungs- clear to auscultation Heart- regular rhythm Abdomen- normal bowel sounds Extremities- Left leg redness, + edema Neuro- alert, oriented x 3; PERRL, EOMI Skin- warm & dry Laboratory Results: Last 24 Hours Test 06/23/17 17:00 06/23/17 17:11 06/23/17 18:56 06/23/17 21:59 White Blood Count 19.14 K/uL Red Blood Count 4.17 M/uL Hemoglobin 13.8 g/dL Hematocrit 40.1 % Mean Corpuscular Volume 96.2 fL Mean Corpuscular Hemoglobin 33.1 pg Mean Corpuscular Hemoglobin Concent 34.4 g/dl Platelet Count 198 K/uL Mean Platelet Volume 10.4 fL Neutrophils (%) (Auto) 92.6 % Lymphocytes (%) (Auto) 4.2 % Monocytes (%) (Auto) 2.4 % Eosinophils (%) (Auto) 0.1 % Basophils (%) (Auto) 0.1 % Neutrophils # (Auto) 17.73 K/uL Lymphocytes # (Auto) 0.81 K/uL Monocytes # (Auto) 0.46 K/uL Eosinophils # (Auto) 0.01 K/uL Basophils # (Auto) 0.02 K/uL RDW Standard Deviation 44.8 fL RDW Coefficient of Variation 12.9 % Immature Granulocyte % (Auto) 0.6 % Immature Granulocyte # (Auto) 0.11 K/uL Erythrocyte Sedimentation Rate 21 mm/hr Prothrombin Time 13.1 SECONDS Prothromb Time International Ratio 1.2 Activated Partial Thromboplast Time 32.0 SECONDS Partial Thromboplastin Ratio 1.2 Sodium Level 138 mmol/L Potassium Level 3.6 mmol/L Chloride Level 102 mmol/L Carbon Dioxide Level 27 mmol/L Anion Gap 9.0 mmol/L Blood Urea Nitrogen 11 mg/dl Creatinine 1.10 mg/dl Est Creatinine Clear Calc Drug Dose 97.4 ml/min Estimated GFR () 85.9 Estimated GFR (Non- 74.1 BUN/Creatinine Ratio 9.9 Random Glucose 144 mg/dl Calcium Level 9.2 mg/dl Total Bilirubin 0.6 mg/dl Direct Bilirubin 0.2 mg/dl Aspartate Amino Transf (AST/SGOT) 21 U/L Alanine Aminotransferase (ALT/SGPT) 25 U/L Alkaline Phosphatase 66 U/L C-Reactive Protein 22.60 mg/dl Total Protein 7.0 gm/dl Albumin 3.2 gm/dl Thyroid Stimulating Hormone (TSH) 0.399 uIu/ml Bedside Lactic Acid Venous 2.03 mmol/L Lactic Acid Level 1.7 mmol/L Bedside Glucose 119 mg/dl Test 06/24/17 03:00 06/24/17 05:40 06/24/17 07:48 06/24/17 11:18 Urine Color YELLOW Urine Appearance CLEAR Urine pH 5.5 Urine Specific [place] 1.009 Urine Protein 1+ Urine Glucose (UA) NEG Urine Ketones NEG Urine Occult Blood TRACE Urine Nitrite NEG Urine Bilirubin NEG Urine Urobilinogen NEG Urine Leukocyte Esterase TRACE Urine WBC (Auto) 10-30 /hpf Urine RBC (Auto) 5-10 /hpf Urine Hyaline Casts (Auto) 1-5 /lpf Urine Epithelial Cells (Auto) >30 /lpf Urine Bacteria (Auto) 2+ Urine Renal Epithelial Cells /lpf Urine Pathogenic Casts /lpf White Blood Count 15.94 K/uL Red Blood Count 3.55 M/uL Hemoglobin 11.7 g/dL Hematocrit 34.4 % Mean Corpuscular Volume 96.9 fL Mean Corpuscular Hemoglobin 33.0 pg Mean Corpuscular Hemoglobin Concent 34.0 g/dl RDW Standard Deviation 45.5 fL RDW Coefficient of Variation 12.9 % Platelet Count 151 K/uL Mean Platelet Volume 10.0 fL Sodium Level 138 mmol/L Potassium Level 3.4 mmol/L Chloride Level 105 mmol/L Carbon Dioxide Level 25 mmol/L Anion Gap 8.0 mmol/L Blood Urea Nitrogen 13 mg/dl Creatinine 0.86 mg/dl Est Creatinine Clear Calc Drug Dose 124.7 ml/min Estimated GFR () 111.6 Estimated GFR (Non- 96.3 BUN/Creatinine Ratio 14.5 Random Glucose 117 mg/dl Calcium Level 8.1 mg/dl Bedside Glucose 110 mg/dl 119 mg/dl Date/Time Source Procedure Growth Status 06/23/17 18:55 Blood Blood Culture Pending Received 06/23/17 17:00 Blood Blood Culture Pending Received 06/23/17 18:05 Urine , Clean Catch Urine Culture - Preliminary NO GROWTH - LESS THAN 1,000 COLONIES/... Resulted Assessment & Plan SEPSIS DUE TO LLE CELLULITIS - meets sepsis criteria - WBC 18K, tachycardic, febrile on admission - s/p IV Rocephin in the ED - Continue IV Vanco and Zosyn - WBC trending down - CT of L knee showed no evidence of joint effusion or osteomyelitis - Xray of L Knee showed total knee arthroplasty good position. No significant joint effusion - Doppler U/S was negative for DVT - Ortho on board recommended to continue IV abx, no surgical intervention at this time - Continue monitor - Echo showed * The left ventricle is normal in size. * There is borderline concentric left ventricular hypertrophy. * The left ventricular wall motion is normal. * Left ventricular systolic function is normal. * Ejection Fraction = 60-65%. * There are no valve abnormalities visualized. DM - hgb a1c 5.3 03/2017 - hold oral agents and utilize SSI while hospitalized HTN - Hold Lisinopril due to dye load with CT - resume as renal functions and BP allow - BP stable and controlled HYPOTHYROIDISM - TSH WNL - continue home dose of levothyroxine for now DYSLIPIDEMIA - continue statin DVT PROPHYLAXIS - SQ Lovenox DISPOSITION Continue IV abx Current Inpatient Medications: Current Inpatient Medications Medications (Trade) Dose Ordered Sig/Noble Route Start Time Stop Time Status Last Admin Dose Admin Enoxaparin Sodium (Lovenox Inj) 40 mg QPM SQ 06/23/17 21:00 07/23/17 20:59 06/23/17 22:05 40 MG Acetaminophen (Tylenol Tab) 650 mg Q4H PRN PO 06/23/17 18:45 07/23/17 18:44 06/24/17 04:17 650 MG Ondansetron HCl (Zofran Inj) 4 mg Q6H PRN IV 06/23/17 18:45 07/23/17 18:44 Sodium Chloride 1,000 ml @ 125 mls/hr Q8H IV 06/23/17 20:15 07/23/17 20:14 06/24/17 13:09 125 MLS/HR Vancomycin HCl (Consult) 1 ea UD PRN N/A 06/23/17 19:30 07/23/17 19:29 Ioversol (Optiray 320) 100 ml UD PRN IV 06/23/17 19:00 06/27/17 18:59 Insulin Aspart (novoLOG ASPART) SLIDING SCALE If C... ACHS SC 06/23/17 21:00 07/23/17 20:59 06/24/17 12:57 4 UNITS Glucose (Glucose 40% Gel) 15-30 GRAMS 15 GRAMS... UD PRN PO 06/23/17 19:00 07/23/17 18:59 Glucose (Glucose Chew Tab) 4-8 Tablets 4 Tabl... UD PRN PO 06/23/17 19:00 07/23/17 18:59 Dextrose (Dextrose 50% 50ML Syringe) 25-50ML OF 50% DW IV FOR... UD PRN IV 06/23/17 19:00 07/23/17 18:59 Glucagon (Glucagon Inj) 1 mg UD PRN SQ 06/23/17 19:00 07/23/17 18:59 Aspirin (Ecotrin Tab) 81 mg DAILY PO 06/24/17 09:00 07/24/17 08:59 06/24/17 07:57 81 MG Cholecalciferol (Vitamin D Tab) 2,000 inter.unit DAILY PO 06/24/17 09:00 07/24/17 08:59 06/24/17 07:57 2,000 INTER.UNIT Cyanocobalamin (Vitamin B-12 Tab) 500 mcg DAILY PO 06/24/17 09:00 07/24/17 08:59 06/24/17 07:57 500 MCG Levothyroxine Sodium (Synthroid Tab) 25 mcg DAILYBB PO 06/24/17 06:30 07/24/17 06:59 06/24/17 05:33 25 MCG Levothyroxine Sodium (Synthroid Tab) 200 mcg DAILYBB PO 06/24/17 06:30 07/24/17 06:59 06/24/17 05:33 200 MCG Multivitamins/ Minerals (Multivitamin W/ Minerals Tab) 1 tab DAILY PO 06/24/17 09:00 07/24/17 08:59 06/24/17 07:57 1 TAB Simvastatin (Zocor Tab) 20 mg QPM PO 06/23/17 21:00 07/23/17 20:59 06/23/17 22:06 20 MG Tramadol HCl (Ultram Tab) 50 mg Q8H PRN PO 06/23/17 19:15 07/23/17 19:14 Piperacillin Sod/ Tazobactam Sod (Consult) 1 ea UD PRN N/A 06/23/17 19:30 07/23/17 19:29 Piperacillin Sod/ Tazobactam Sod 4.5 gm/Dextrose 120 ml @ 30 mls/hr Q8H IV 06/24/17 00:00 07/03/17 18:59 06/24/17 08:01 30 MLS/HR Ethyl Chloride (Ethyl Chloride Aerosol) 1 ml ONE EXT 06/24/17 07:45 06/24/17 17:00 Vancomycin HCl 1750 mg/Sodium Chloride 535 ml @ 200 mls/hr Q10H IV 06/24/17 14:00 07/04/17 13:59 06/24/17 13:09 200 MLS/HR
[2017-06-24] MEDS: TRAMADOL HCL 50 MG TAB PO PRN (21:47)
[2017-06-24] MEDS: ENOXAPARIN 40 MG/0.4 ML SYR SQ SCH (21:49)
[2017-06-24] MEDS: SIMVASTATIN 20 MG TAB PO SCH (21:49)
[2017-06-25] VITALS (7 sets, daily range): BP systolic 91–125; BP diastolic 58–78; PULSE 18–95; TEMP 36.7–37.5; O2SAT 91–98
[2017-06-25] MEDS: PIPERACILL/TAZOBAC IV 4.5 GM in DEXTROSE 5% 100ML 100 ML IV SCH ×3 (00:26→15:32)
[2017-06-25] MEDS: VANCOMYCIN INJ 1,750 MG in SODIUM CHLORIDE 0.9% 500ML 500 ML IV SCH ×3 (00:26→22:32)
[2017-06-25] MEDS: SODIUM CHLORIDE 0.9% 1000ML 1,000 ML IV SCH ×3 (03:34→21:10)
[2017-06-25] MEDS: LEVOTHYROXINE 25 MCG TAB PO SCH (06:42)
[2017-06-25] MEDS: LEVOTHYROXINE 200 MCG TAB PO SCH (06:43)
[2017-06-25] MEDS: CEROVITE ADV FORMULA TAB PO SCH (08:11)
[2017-06-25] MEDS: CYANOCOBALAMIN 500 MCG TAB (VIT B-12) PO SCH (08:12)
[2017-06-25] MEDS: CHOLECALCIFEROL 1000 INTER.UNIT TAB PO SCH (08:12)
[2017-06-25] MEDS: ASPIRIN 81 MG ECTAB PO SCH (08:12)
[2017-06-25] MEDS: INSULIN ASPART 100 UNITS/ML 3 ML PEN SC SCH ×4 (08:29→21:00)
--- NOTE | 2017-06-25 10:42 | Pharmacy Progress Note ---
Pharmacy Abx Dose Short Note Date of Service Jun 25, 2017. Assessment & Plan Assessment 57 year old male receiving vancomycin/Zosyn for treatment of cellulitis on LLE involving area around TKA scar Day # 3 of antimicrobial therapy. Plan Vancomycin * Trough level of 16.5 mcg/mL is therapeutic. * Reduce dose to vancomycin 1250 mg IV q12 hours (reduced by 20% secondary to patient's elevated BMI and risk of accumulation) * Goal trough level for cellulitis : 15 to 20 mcg/mL * Trough ordered for: 06/27/17 prior to 1000 dose Pharmacy will continue to follow and will adjust dose/frequency as necessary. Thank you.
[2017-06-25 11:01] LABS: HEMATOCRIT 32.2 % (42-52); MEAN CELL VOLUME 96.4 fL (80-100); MEAN CORPUSCULAR HEMOGLOBIN 32.3 pg (25-34); MEAN CORPUSCULAR HGB CONC 33.5 g/dl (32-36); MEAN PLATELET VOLUME 10.6 fL (7.4-10.4); PLATELET COUNT 146 K/uL (130-400); RED BLOOD COUNT 3.34 M/uL (4.7-6.1); WHITE BLOOD COUNT 14.17 K/uL (4.8-10.8)
[2017-06-25 11:55] LABS: CREATININE 0.82 mg/dl (0.60-1.40)
[2017-06-25 11:56] LABS: BUN/CREATININE RATIO 9.6 (10-20); CALCIUM 8.1 mg/dl (8.5-10.1); POTASSIUM 3.8 mmol/L (3.5-5.1)
--- NOTE | 2017-06-25 13:10 | Orthopedic Progress Note ---
Orthopedic Progress Note Date of Service Jun 25, 2017. Subjective Additional Notes: States the leg is feeling a little better today. Feels the redness has gone down some. No new complaints. Objective LLE cellulitis. Proximal erythema slightly better today. No new changes with the left knee. Cellulitis of the area at the mid tibia down to ankle does not appear to have changed much. Date Time Temp Pulse Resp B/P (MAP) Pulse Ox O2 Delivery O2 Flow Rate FiO2 06/25/17 12:00 36.7 85 20 99/67 (78) 94 Room Air 06/25/17 08:00 Room Air 06/25/17 07:20 36.7 54 20 108/74 (85) 98 Room Air 06/25/17 04:34 37.0 93 91/59 (70) 95 Room Air 18 06/25/17 04:05 Room Air 06/25/17 00:24 37.2 94 16 103/64 (77) 93 06/25/17 00:05 Room Air 06/24/17 20:05 Room Air 06/24/17 19:39 36.9 06/24/17 19:12 39.1 103 18 101/63 (76) 95 Room Air 06/24/17 16:00 Room Air 06/24/17 14:59 37.4 92 18 112/63 (79) 96 Laboratory Results 24 Hours: Test 06/25/17 09:30 Hematocrit 32.2 % Hemoglobin 10.8 g/dL Assessment & Plan Assessment: LLE cellulitis Plan: His knee exam is relatively benign. I do not feel the cellulitis has involved the joint. I do not feel aspiration is needed at this time. Recommend continued IV ABX as per medicine. Will sign off. Thank you. PER DR JACK ABOVE. CONTINUE IV ANTIBX. ORTHO WILL SIGN OFF FOR NOW. PLEASE CALL WITH ANY CHANGES OR QUESTIONS.
[2017-06-25] MEDS ORDERED: VANCOMYCIN TROUGH SCH (15:30)
--- NOTE | 2017-06-25 18:08 | Progress Note ---
Medicine Progress Note Date & Time of Visit: Jun 25, 2017 at 18:03. Subjective Pt was seen and examined Lying in bed with no distress Pt wants to go home today After talking to him, he agreed to stay Pt said that the erythema seems to improve in his leg Denies any chest pain, palpitation, dizziness and SOB Objective Last 8 Hrs Date Time Temp Pulse Resp B/P (MAP) Pulse Ox O2 Delivery O2 Flow Rate FiO2 06/25/17 16:00 Room Air 06/25/17 15:42 37.3 86 18 125/78 (94) 92 Room Air 06/25/17 12:00 Room Air 06/25/17 12:00 36.7 85 20 99/67 (78) 94 Room Air Physical Exam: General- No acute distress Head- atraumatic Eyes- PERRL, EOMI ENT- oropharynx clear Neck- supple, no JVD Lungs- clear to auscultation Heart- regular rhythm Abdomen- normal bowel sounds Extremities- Left leg redness, + edema Neuro- alert, oriented x 3; PERRL, EOMI Skin- warm & dry Laboratory Results: Last 24 Hours Test 06/24/17 20:24 06/25/17 08:21 06/25/17 09:30 06/25/17 09:34 Bedside Glucose 151 mg/dl 173 mg/dl White Blood Count 14.17 K/uL Red Blood Count 3.34 M/uL Hemoglobin 10.8 g/dL Hematocrit 32.2 % Mean Corpuscular Volume 96.4 fL Mean Corpuscular Hemoglobin 32.3 pg Mean Corpuscular Hemoglobin Concent 33.5 g/dl RDW Standard Deviation 45.4 fL RDW Coefficient of Variation 12.9 % Platelet Count 146 K/uL Mean Platelet Volume 10.6 fL Sodium Level 142 mmol/L Potassium Level 3.8 mmol/L Chloride Level 108 mmol/L Carbon Dioxide Level 25 mmol/L Anion Gap 9.0 mmol/L Blood Urea Nitrogen 8 mg/dl Creatinine 0.82 mg/dl Est Creatinine Clear Calc Drug Dose 131.9 ml/min Estimated GFR () 113.8 Estimated GFR (Non- 98.2 BUN/Creatinine Ratio 9.6 Random Glucose 135 mg/dl Calcium Level 8.1 mg/dl Vancomycin Level Trough 16.5 mcg/ml Test 06/25/17 11:50 06/25/17 16:25 Bedside Glucose 108 mg/dl 111 mg/dl Assessment & Plan SEPSIS DUE TO LLE CELLULITIS - meets sepsis criteria - WBC 18K, tachycardic, febrile on admission - s/p IV Rocephin in the ED - blood cx no growth - IV Vanco was D/C - Continue IV Zosyn - WBC continue trending down - CT of L knee showed no evidence of joint effusion or osteomyelitis - Xray of L Knee showed total knee arthroplasty good position. No significant joint effusion - Doppler U/S was negative for DVT - Ortho on board recommended to continue IV abx, no surgical intervention at this time - Continue monitor - Echo showed * The left ventricle is normal in size. * There is borderline concentric left ventricular hypertrophy. * The left ventricular wall motion is normal. * Left ventricular systolic function is normal. * Ejection Fraction = 60-65%. * There are no valve abnormalities visualized. DM - hgb a1c 5.3 03/2017 - hold oral agents and utilize SSI while hospitalized HTN - Hold Lisinopril due to dye load with CT - resume as renal functions and BP allow - BP stable and controlled HYPOTHYROIDISM - TSH WNL - continue home dose of levothyroxine for now DYSLIPIDEMIA - continue statin DVT PROPHYLAXIS - SQ Lovenox DISPOSITION Continue IV abx Current Inpatient Medications: Current Inpatient Medications Medications (Trade) Dose Ordered Sig/Noble Route Start Time Stop Time Status Last Admin Dose Admin Enoxaparin Sodium (Lovenox Inj) 40 mg QPM SQ 06/23/17 21:00 07/23/17 20:59 06/24/17 21:49 40 MG Acetaminophen (Tylenol Tab) 650 mg Q4H PRN PO 06/23/17 18:45 07/23/17 18:44 06/24/17 04:17 650 MG Ondansetron HCl (Zofran Inj) 4 mg Q6H PRN IV 06/23/17 18:45 07/23/17 18:44 Sodium Chloride 1,000 ml @ 125 mls/hr Q8H IV 06/23/17 20:15 07/23/17 20:14 06/25/17 12:32 125 MLS/HR Vancomycin HCl (Consult) 1 ea UD PRN N/A 06/23/17 19:30 07/23/17 19:29 Ioversol (Optiray 320) 100 ml UD PRN IV 06/23/17 19:00 06/27/17 18:59 Insulin Aspart (novoLOG ASPART) SLIDING SCALE If C... ACHS SC 06/23/17 21:00 07/23/17 20:59 06/25/17 17:39 3 UNITS Glucose (Glucose 40% Gel) 15-30 GRAMS 15 GRAMS... UD PRN PO 06/23/17 19:00 07/23/17 18:59 Glucose (Glucose Chew Tab) 4-8 Tablets 4 Tabl... UD PRN PO 06/23/17 19:00 07/23/17 18:59 Dextrose (Dextrose 50% 50ML Syringe) 25-50ML OF 50% DW IV FOR... UD PRN IV 06/23/17 19:00 07/23/17 18:59 Glucagon (Glucagon Inj) 1 mg UD PRN SQ 06/23/17 19:00 07/23/17 18:59 Aspirin (Ecotrin Tab) 81 mg DAILY PO 06/24/17 09:00 07/24/17 08:59 06/25/17 08:12 81 MG Cholecalciferol (Vitamin D Tab) 2,000 inter.unit DAILY PO 06/24/17 09:00 07/24/17 08:59 06/25/17 08:12 2,000 INTER.UNIT Cyanocobalamin (Vitamin B-12 Tab) 500 mcg DAILY PO 06/24/17 09:00 07/24/17 08:59 06/25/17 08:12 500 MCG Levothyroxine Sodium (Synthroid Tab) 25 mcg DAILYBB PO 06/24/17 06:30 07/24/17 06:59 06/25/17 06:42 25 MCG Levothyroxine Sodium (Synthroid Tab) 200 mcg DAILYBB PO 06/24/17 06:30 07/24/17 06:59 06/25/17 06:43 200 MCG Multivitamins/ Minerals (Multivitamin W/ Minerals Tab) 1 tab DAILY PO 06/24/17 09:00 07/24/17 08:59 06/25/17 08:11 1 TAB Simvastatin (Zocor Tab) 20 mg QPM PO 06/23/17 21:00 07/23/17 20:59 06/24/17 21:49 20 MG Tramadol HCl (Ultram Tab) 50 mg Q8H PRN PO 06/23/17 19:15 07/23/17 19:14 06/24/17 21:47 50 MG Piperacillin Sod/ Tazobactam Sod (Consult) 1 ea UD PRN N/A 06/23/17 19:30 07/23/17 19:29 Piperacillin Sod/ Tazobactam Sod 4.5 gm/Dextrose 120 ml @ 30 mls/hr Q8H IV 06/24/17 00:00 07/03/17 18:59 06/25/17 15:32 30 MLS/HR Vancomycin HCl 1750 mg/Sodium Chloride 535 ml @ 200 mls/hr Q12H IV 06/25/17 22:00 07/03/17 21:59
[2017-06-25] MEDS: TRAMADOL HCL 50 MG TAB PO PRN (21:08)
[2017-06-25] MEDS: ENOXAPARIN 40 MG/0.4 ML SYR SQ SCH (21:09)
[2017-06-25] MEDS: SIMVASTATIN 20 MG TAB PO SCH (21:09)
[2017-06-25] MEDS: LORAZEPAM 0.5 MG TAB PO PRN (22:38)
[2017-06-26] MEDS: PIPERACILL/TAZOBAC IV 4.5 GM in DEXTROSE 5% 100ML 100 ML IV SCH ×4 (00:05→23:49)
[2017-06-26 00:53] VITALS: BP 130/81; PULSE 96; TEMP 37.1; O2SAT 91
[2017-06-26 04:00] VITALS: BP 100/64; PULSE 96; TEMP 37.2; O2SAT 91
[2017-06-26] MEDS: SODIUM CHLORIDE 0.9% 1000ML 1,000 ML IV SCH ×2 (04:19→12:50)
[2017-06-26] MEDS: LEVOTHYROXINE 25 MCG TAB PO SCH (05:56)
[2017-06-26] MEDS: LEVOTHYROXINE 200 MCG TAB PO SCH (05:56)
[2017-06-26 07:28] VITALS: BP 110/74; PULSE 96; TEMP 37.1; O2SAT 90
[2017-06-26] MEDS: ASPIRIN 81 MG ECTAB PO SCH (07:45)
[2017-06-26] MEDS: CYANOCOBALAMIN 500 MCG TAB (VIT B-12) PO SCH (07:45)
[2017-06-26] MEDS: CEROVITE ADV FORMULA TAB PO SCH (07:46)
[2017-06-26] MEDS: CHOLECALCIFEROL 1000 INTER.UNIT TAB PO SCH (07:46)
[2017-06-26 08:02] LABS: HEMATOCRIT 33.5 % (42-52); MEAN CELL VOLUME 96.3 fL (80-100); MEAN CORPUSCULAR HEMOGLOBIN 32.5 pg (25-34); MEAN CORPUSCULAR HGB CONC 33.7 g/dl (32-36); PLATELET COUNT 157 K/uL (130-400); RED BLOOD COUNT 3.48 M/uL (4.7-6.1); WHITE BLOOD COUNT 14.61 K/uL (4.8-10.8)
[2017-06-26] MEDS: INSULIN ASPART 100 UNITS/ML 3 ML PEN SC SCH ×4 (08:08→20:37)
[2017-06-26 08:39] LABS: BUN/CREATININE RATIO 6.9 (10-20); CALCIUM 8.4 mg/dl (8.5-10.1); CREATININE 0.75 mg/dl (0.60-1.40); POTASSIUM 3.9 mmol/L (3.5-5.1)
[2017-06-26] MEDS ORDERED: VANCOMYCIN TROUGH SCH (09:30)
[2017-06-26] MEDS: VANCOMYCIN INJ 1,750 MG in SODIUM CHLORIDE 0.9% 500ML 500 ML IV SCH ×2 (10:47→22:22)
[2017-06-26 11:17] VITALS: BP 135/82; PULSE 91; TEMP 36.8; O2SAT 91
--- NOTE | 2017-06-26 17:29 | Progress Note ---
Medicine Progress Note Date & Time of Visit: Jun 26, 2017 at 17:24. Subjective Pt was seen and examined Lying in bed with no distress left leg erythema slightly improved he agreed to stay tonight to continue IV abx denies any chest pain, palpitation, dizziness and SOB Objective Last 8 Hrs Date Time Temp Pulse Resp B/P (MAP) Pulse Ox O2 Delivery O2 Flow Rate FiO2 06/26/17 12:00 Room Air 06/26/17 11:17 36.8 91 20 135/82 (99) 91 Room Air Physical Exam: General- No acute distress Head- atraumatic Eyes- PERRL, EOMI ENT- oropharynx clear Neck- supple, no JVD Lungs- clear to auscultation Heart- regular rhythm Abdomen- normal bowel sounds Extremities- Left leg redness slightly improved, + edema Neuro- alert, oriented x 3; PERRL, EOMI Skin- warm & dry Laboratory Results: Last 24 Hours Test 06/25/17 20:15 06/26/17 06:02 06/26/17 07:36 06/26/17 11:26 Bedside Glucose 121 mg/dl 96 mg/dl 117 mg/dl White Blood Count 14.61 K/uL Red Blood Count 3.48 M/uL Hemoglobin 11.3 g/dL Hematocrit 33.5 % Mean Corpuscular Volume 96.3 fL Mean Corpuscular Hemoglobin 32.5 pg Mean Corpuscular Hemoglobin Concent 33.7 g/dl RDW Standard Deviation 46.0 fL RDW Coefficient of Variation 13.2 % Platelet Count 157 K/uL Mean Platelet Volume 10.0 fL Sodium Level 143 mmol/L Potassium Level 3.9 mmol/L Chloride Level 110 mmol/L Carbon Dioxide Level 26 mmol/L Anion Gap 7.0 mmol/L Blood Urea Nitrogen 5 mg/dl Creatinine 0.75 mg/dl Est Creatinine Clear Calc Drug Dose 144.7 ml/min Estimated GFR () 118.0 Estimated GFR (Non- 101.8 BUN/Creatinine Ratio 6.9 Random Glucose 93 mg/dl Calcium Level 8.4 mg/dl Assessment & Plan SEPSIS DUE TO LLE CELLULITIS - meets sepsis criteria - WBC 18K, tachycardic, febrile on admission - s/p IV Rocephin in the ED - blood cx no growth - Continue IV Zosyn and Vanco - Elevated WBC - CT of L knee showed no evidence of joint effusion or osteomyelitis - Xray of L Knee showed total knee arthroplasty good position. No significant joint effusion - Doppler U/S was negative for DVT - Ortho on board recommended to continue IV abx, no surgical intervention at this time - Erythema slightly improved - Continue IV abx for today, will change to PO tomorrow - Echo showed * The left ventricle is normal in size. * There is borderline concentric left ventricular hypertrophy. * The left ventricular wall motion is normal. * Left ventricular systolic function is normal. * Ejection Fraction = 60-65%. * There are no valve abnormalities visualized. DM - hgb a1c 5.3 03/2017 - hold oral agents and utilize SSI while hospitalized HTN - Lisinopril on hold due to dye load with CT - resume as renal functions and BP allow - BP stable and controlled - will resume lisinopril tomorrow HYPOTHYROIDISM - TSH WNL - continue home dose of levothyroxine for now DYSLIPIDEMIA - continue statin DVT PROPHYLAXIS - SQ Lovenox DISPOSITION Continue IV abx Current Inpatient Medications: Current Inpatient Medications Medications (Trade) Dose Ordered Sig/Noble Route Start Time Stop Time Status Last Admin Dose Admin Enoxaparin Sodium (Lovenox Inj) 40 mg QPM SQ 06/23/17 21:00 07/23/17 20:59 06/25/17 21:09 40 MG Acetaminophen (Tylenol Tab) 650 mg Q4H PRN PO 06/23/17 18:45 07/23/17 18:44 06/24/17 04:17 650 MG Ondansetron HCl (Zofran Inj) 4 mg Q6H PRN IV 06/23/17 18:45 07/23/17 18:44 Sodium Chloride 1,000 ml @ 125 mls/hr Q8H IV 06/23/17 20:15 07/23/17 20:14 06/26/17 12:50 125 MLS/HR Vancomycin HCl (Consult) 1 ea UD PRN N/A 06/23/17 19:30 07/23/17 19:29 Ioversol (Optiray 320) 100 ml UD PRN IV 06/23/17 19:00 06/27/17 18:59 Insulin Aspart (novoLOG ASPART) SLIDING SCALE If C... ACHS SC 06/23/17 21:00 07/23/17 20:59 06/26/17 12:49 2 UNITS Glucose (Glucose 40% Gel) 15-30 GRAMS 15 GRAMS... UD PRN PO 06/23/17 19:00 07/23/17 18:59 Glucose (Glucose Chew Tab) 4-8 Tablets 4 Tabl... UD PRN PO 06/23/17 19:00 07/23/17 18:59 Dextrose (Dextrose 50% 50ML Syringe) 25-50ML OF 50% DW IV FOR... UD PRN IV 06/23/17 19:00 07/23/17 18:59 Glucagon (Glucagon Inj) 1 mg UD PRN SQ 06/23/17 19:00 07/23/17 18:59 Aspirin (Ecotrin Tab) 81 mg DAILY PO 06/24/17 09:00 07/24/17 08:59 06/26/17 07:45 81 MG Cholecalciferol (Vitamin D Tab) 2,000 inter.unit DAILY PO 06/24/17 09:00 07/24/17 08:59 06/26/17 07:46 2,000 INTER.UNIT Cyanocobalamin (Vitamin B-12 Tab) 500 mcg DAILY PO 06/24/17 09:00 07/24/17 08:59 06/26/17 07:45 500 MCG Levothyroxine Sodium (Synthroid Tab) 25 mcg DAILYBB PO 06/24/17 06:30 07/24/17 06:59 06/26/17 05:56 25 MCG Levothyroxine Sodium (Synthroid Tab) 200 mcg DAILYBB PO 06/24/17 06:30 07/24/17 06:59 06/26/17 05:56 200 MCG Multivitamins/ Minerals (Multivitamin W/ Minerals Tab) 1 tab DAILY PO 06/24/17 09:00 07/24/17 08:59 06/26/17 07:46 1 TAB Simvastatin (Zocor Tab) 20 mg QPM PO 06/23/17 21:00 07/23/17 20:59 06/25/17 21:09 20 MG Tramadol HCl (Ultram Tab) 50 mg Q8H PRN PO 06/23/17 19:15 07/23/17 19:14 06/25/17 21:08 50 MG Piperacillin Sod/ Tazobactam Sod (Consult) 1 ea UD PRN N/A 06/23/17 19:30 07/23/17 19:29 Piperacillin Sod/ Tazobactam Sod 4.5 gm/Dextrose 120 ml @ 30 mls/hr Q8H IV 06/24/17 00:00 07/03/17 18:59 06/26/17 16:08 30 MLS/HR Vancomycin HCl 1750 mg/Sodium Chloride 535 ml @ 200 mls/hr Q12H IV 06/25/17 22:00 07/03/17 21:59 06/26/17 10:47 200 MLS/HR Lorazepam (Ativan Tab) 0.5 mg HS PRN PO 06/25/17 22:30 07/25/17 22:29 06/25/17 22:38 0.5 MG
[2017-06-26 19:33] VITALS: BP 126/86; PULSE 105; TEMP 37.3; O2SAT 90
[2017-06-26] MEDS: ENOXAPARIN 40 MG/0.4 ML SYR SQ SCH (20:36)
[2017-06-26] MEDS: SIMVASTATIN 20 MG TAB PO SCH (20:36)
[2017-06-26] MEDS: TRAMADOL HCL 50 MG TAB PO PRN (20:37)
[2017-06-26] MEDS ORDERED: LISINOPRIL 10 MG TAB PO SCH (21:00)
[2017-06-26] MEDS: LORAZEPAM 0.5 MG TAB PO PRN (23:46)
[2017-06-26 23:51] VITALS: BP 158/79; PULSE 104; TEMP 36.7; O2SAT 92
[2017-06-27] VITALS (8 sets, daily range): BP systolic 124–161; BP diastolic 75–97; PULSE 100–109; TEMP 36.7–36.9; O2SAT 85–97
[2017-06-27] MEDS ORDERED: LEVALBUTEROL/IPRATROPIUM NEB INH PRN (05:15)
[2017-06-27] MEDS ORDERED: LEVALBUTEROL 1.25MG/0.5ML NEB INH PRN (05:30)
[2017-06-27] MEDS ORDERED: IPRATROPIUM BROMIDE NEB SOLN 0.02% 2.5 ML VIAL INH PRN (05:30)
[2017-06-27] MEDS: LEVOTHYROXINE 200 MCG TAB PO SCH (06:02)
[2017-06-27] MEDS: LEVOTHYROXINE 25 MCG TAB PO SCH (06:02)
--- NOTE | 2017-06-27 07:50 | DIAGNOSTIC IMAGING REPORT ---
CHEST ONE VIEW PORTABLE CLINICAL HISTORY: 57 years-old Male presenting with low o2. TECHNIQUE: Portable upright AP view of the chest was obtained. COMPARISON: 06/23/2017. FINDINGS: Cardiac silhouette top normal in size. Minimal bibasilar vague opacities may be present. No pleural effusion or pneumothorax. Osseous structures normal. Upper abdomen normal. IMPRESSION: 1. Minimal bibasilar atelectasis may be present. No other focal infiltrate. Electronically signed by: Perfecto Weber M.D. 06/27/2017 7:48 AM Dictated Date/Time: 06/27/2017 7:47 AM
[2017-06-27] MEDS: ASPIRIN 81 MG ECTAB PO SCH (08:04)
[2017-06-27] MEDS: CYANOCOBALAMIN 500 MCG TAB (VIT B-12) PO SCH (08:04)
[2017-06-27] MEDS: CEROVITE ADV FORMULA TAB PO SCH (08:04)
[2017-06-27] MEDS: CHOLECALCIFEROL 1000 INTER.UNIT TAB PO SCH (08:04)
[2017-06-27] MEDS: INSULIN ASPART 100 UNITS/ML 3 ML PEN SC SCH ×3 (08:31→16:30)
[2017-06-27] MEDS ORDERED: VANCOMYCIN TROUGH SCH (09:30)
[2017-06-27 09:56] LABS: BASO % 0.2 %; BASO ABS # 0.03 K/uL (0-0.2); COMPLETE YES; EOS % 0.7 %; HEMATOCRIT 31.9 % (42-52); IG% 1.6 %; LYMPH ABS # 1.04 K/uL (1.2-3.4); MEAN CELL VOLUME 95.8 fL (80-100); MEAN CORPUSCULAR HEMOGLOBIN 33.3 pg (25-34); MEAN CORPUSCULAR HGB CONC 34.8 g/dl (32-36); MEAN PLATELET VOLUME 9.7 fL (7.4-10.4); MONO % 11.1 %; NEUT % 78.4 %; PLATELET COUNT 174 K/uL (130-400); RED BLOOD COUNT 3.33 M/uL (4.7-6.1); WHITE BLOOD COUNT 13.03 K/uL (4.8-10.8)
[2017-06-27 10:07] LABS: PARTIAL THROMBOPLASTIN RATIO 1.2
[2017-06-27 10:18] LABS: BUN/CREATININE RATIO 9.5 (10-20); CALCIUM 8.4 mg/dl (8.5-10.1); CREATININE 0.61 mg/dl (0.60-1.40); POTASSIUM 3.5 mmol/L (3.5-5.1)
[2017-06-27] MEDS ORDERED: OPTIRAY 320 IV PRN (11:00)
--- NOTE | 2017-06-27 12:48 | Progress Note ---
Medicine Progress Note Date & Time of Visit: Jun 27, 2017 at 12:37. Subjective Pt was seen and examined Lying in bed with no acute distress Pt was desaturated last night He was placed on oxygen supplement Leg erythema improved Denies any chest pain, palpitation, dizziness Objective Last 8 Hrs Date Time Temp Pulse Resp B/P (MAP) Pulse Ox O2 Delivery O2 Flow Rate FiO2 06/27/17 08:00 97 Nasal Cannula 2.0 06/27/17 07:01 36.8 103 18 124/75 (91) 97 Nasal Cannula 2.0 Physical Exam: General- No acute distress Head- atraumatic Eyes- PERRL, EOMI ENT- oropharynx clear Neck- supple, no JVD Lungs- no wheezing Heart- regular rhythm Abdomen- normal bowel sounds Extremities- Left leg redness slightly improved, + edema Neuro- alert, oriented x 3; PERRL, EOMI Skin- warm & dry Laboratory Results: Last 24 Hours Test 06/26/17 16:16 06/26/17 20:29 06/27/17 07:18 06/27/17 09:39 Bedside Glucose 96 mg/dl 116 mg/dl 117 mg/dl White Blood Count 13.03 K/uL Red Blood Count 3.33 M/uL Hemoglobin 11.1 g/dL Hematocrit 31.9 % Mean Corpuscular Volume 95.8 fL Mean Corpuscular Hemoglobin 33.3 pg Mean Corpuscular Hemoglobin Concent 34.8 g/dl Platelet Count 174 K/uL Mean Platelet Volume 9.7 fL Neutrophils (%) (Auto) 78.4 % Lymphocytes (%) (Auto) 8.0 % Monocytes (%) (Auto) 11.1 % Eosinophils (%) (Auto) 0.7 % Basophils (%) (Auto) 0.2 % Neutrophils # (Auto) 10.21 K/uL Lymphocytes # (Auto) 1.04 K/uL Monocytes # (Auto) 1.45 K/uL Eosinophils # (Auto) 0.09 K/uL Basophils # (Auto) 0.03 K/uL RDW Standard Deviation 46.0 fL RDW Coefficient of Variation 13.1 % Immature Granulocyte % (Auto) 1.6 % Immature Granulocyte # (Auto) 0.21 K/uL Activated Partial Thromboplast Time 31.0 SECONDS Partial Thromboplastin Ratio 1.2 D-Dimer 3140 ug/L FEU Sodium Level 144 mmol/L Potassium Level 3.5 mmol/L Chloride Level 109 mmol/L Carbon Dioxide Level 29 mmol/L Anion Gap 6.0 mmol/L Blood Urea Nitrogen 6 mg/dl Creatinine 0.61 mg/dl Est Creatinine Clear Calc Drug Dose 178.9 ml/min Estimated GFR () 128.5 Estimated GFR (Non- 110.9 BUN/Creatinine Ratio 9.5 Random Glucose 128 mg/dl Calcium Level 8.4 mg/dl Magnesium Level 2.0 mg/dl Vancomycin Level Trough 13.1 mcg/ml Test 06/27/17 11:10 Bedside Glucose 118 mg/dl Assessment & Plan SEPSIS DUE TO LLE CELLULITIS - meets sepsis criteria - WBC 18K, tachycardic, febrile on admission - s/p IV Rocephin in the ED - blood cx no growth - Continue IV Zosyn and Vanco - Elevated WBC - CT of L knee showed no evidence of joint effusion or osteomyelitis - Xray of L Knee showed total knee arthroplasty good position. No significant joint effusion - Doppler U/S was negative for DVT - Ortho on board recommended to continue IV abx, no surgical intervention at this time - Erythema improved significantly - On IV abx with zosyn and canco day 5 -plan to change abx to PO doxy and Augmentin - Echo showed * The left ventricle is normal in size. * There is borderline concentric left ventricular hypertrophy. * The left ventricular wall motion is normal. * Left ventricular systolic function is normal. * Ejection Fraction = 60-65%. * There are no valve abnormalities visualized. Hypoxia associated with tachycardia CXR showed minimal bibasilar atelectasis may be present. No other focal infiltrate. Need to r/o PE D-dimer elevated CT chest showed 1. Respiratory motion artifact. 2. No evidence for central pulmonary embolus. 3. No focal lung consolidations to suggest pneumonia. 4. An 8 mm nodular density within the right lower lobe posteriorly. This favors a small focus of atelectasis. However, [address] follow-up is recommended to ensure resolution. DM - hgb a1c 5.3 03/2017 - hold oral agents and utilize SSI while hospitalized HTN - Lisinopril was on hold due to dye load with CT - resume as renal functions and BP allow - BP stable and controlled - Lisinopril was resume this morning - since pt is going for CTA chest, will hold tomorrow dose of lisinopril HYPOTHYROIDISM - TSH WNL - continue home dose of levothyroxine for now DYSLIPIDEMIA - continue statin DVT PROPHYLAXIS - SQ Lovenox DISPOSITION Discharge home today Will discharge once medically stable Consultants: ortho Current Inpatient Medications: Current Inpatient Medications Medications (Trade) Dose Ordered Sig/Noble Route Start Time Stop Time Status Last Admin Dose Admin Enoxaparin Sodium (Lovenox Inj) 40 mg QPM SQ 06/23/17 21:00 07/23/17 20:59 06/26/17 20:36 40 MG Acetaminophen (Tylenol Tab) 650 mg Q4H PRN PO 06/23/17 18:45 07/23/17 18:44 06/24/17 04:17 650 MG Ondansetron HCl (Zofran Inj) 4 mg Q6H PRN IV 06/23/17 18:45 07/23/17 18:44 Vancomycin HCl (Consult) 1 ea UD PRN N/A 06/23/17 19:30 07/23/17 19:29 Ioversol (Optiray 320) 100 ml UD PRN IV 06/23/17 19:00 06/27/17 18:59 Insulin Aspart (novoLOG ASPART) SLIDING SCALE If C... ACHS SC 06/23/17 21:00 07/23/17 20:59 06/27/17 08:31 2 UNITS Glucose (Glucose 40% Gel) 15-30 GRAMS 15 GRAMS... UD PRN PO 06/23/17 19:00 07/23/17 18:59 Glucose (Glucose Chew Tab) 4-8 Tablets 4 Tabl... UD PRN PO 06/23/17 19:00 07/23/17 18:59 Dextrose (Dextrose 50% 50ML Syringe) 25-50ML OF 50% DW IV FOR... UD PRN IV 06/23/17 19:00 07/23/17 18:59 Glucagon (Glucagon Inj) 1 mg UD PRN SQ 06/23/17 19:00 07/23/17 18:59 Aspirin (Ecotrin Tab) 81 mg DAILY PO 06/24/17 09:00 07/24/17 08:59 06/27/17 08:04 81 MG Cholecalciferol (Vitamin D Tab) 2,000 inter.unit DAILY PO 06/24/17 09:00 07/24/17 08:59 06/27/17 08:04 2,000 INTER.UNIT Cyanocobalamin (Vitamin B-12 Tab) 500 mcg DAILY PO 06/24/17 09:00 07/24/17 08:59 06/27/17 08:04 500 MCG Levothyroxine Sodium (Synthroid Tab) 25 mcg DAILYBB PO 06/24/17 06:30 07/24/17 06:59 06/27/17 06:02 25 MCG Levothyroxine Sodium (Synthroid Tab) 200 mcg DAILYBB PO 06/24/17 06:30 07/24/17 06:59 06/27/17 06:02 200 MCG Multivitamins/ Minerals (Multivitamin W/ Minerals Tab) 1 tab DAILY PO 06/24/17 09:00 07/24/17 08:59 06/27/17 08:04 1 TAB Simvastatin (Zocor Tab) 20 mg QPM PO 06/23/17 21:00 07/23/17 20:59 06/26/17 20:36 20 MG Tramadol HCl (Ultram Tab) 50 mg Q8H PRN PO 06/23/17 19:15 07/23/17 19:14 06/26/17 20:37 50 MG Piperacillin Sod/ Tazobactam Sod (Consult) 1 ea UD PRN N/A 06/23/17 19:30 07/23/17 19:29 Piperacillin Sod/ Tazobactam Sod 4.5 gm/Dextrose 120 ml @ 30 mls/hr Q8H IV 06/24/17 00:00 07/03/17 18:59 06/26/17 23:49 30 MLS/HR Lorazepam (Ativan Tab) 0.5 mg HS PRN PO 06/25/17 22:30 07/25/17 22:29 06/26/17 23:46 0.5 MG Lisinopril (Zestril Tab) 10 mg QPM PO 06/26/17 21:00 07/26/17 20:59 06/26/17 20:35 10 MG Ipratropium Lillie (Atrovent 0.02% 0.5MG/2.5ML Neb) 0.5 mg Q4H PRN INH 06/27/17 05:30 07/27/17 05:29 Levalbuterol (Xopenex 1.25MG/ 0.5ML Neb) 1.25 mg Q4H PRN INH 06/27/17 05:30 07/27/17 05:29 Ioversol (Optiray 320) 100 ml UD PRN IV 06/27/17 11:00 07/01/17 10:59 Vancomycin HCl 1750 mg/Sodium Chloride 535 ml @ 200 mls/hr Q10H IV 06/27/17 20:00 07/02/17 23:59
[2017-06-27] MEDS: PIPERACILL/TAZOBAC IV 4.5 GM in DEXTROSE 5% 100ML 100 ML IV SCH (13:14)
--- NOTE | 2017-06-27 13:25 | Pharmacy Progress Note ---
Pharmacy Abx Dose Short Note Date of Service Jun 27, 2017. Assessment & Plan Assessment 57 year old male receiving vancomycin/Zosyn for treatment of cellulitis on LLE involving area around TKA scar Day # 5 of antimicrobial therapy. Plan Vancomycin * Trough level of 13.1 mcg/mL is subtherapeutic. * Will change back to vancomycin 1250 mg IV q10 hours. Patient should've shown signs of accumulation by now but has not. * Goal trough level for cellulitis : 15 to 20 mcg/mL * Trough ordered for: 06/28/17 with 1600 dose Pharmacy will continue to follow and will adjust dose/frequency as necessary. Thank you.
--- NOTE | 2017-06-27 14:17 | DIAGNOSTIC IMAGING REPORT ---
CHEST CTA for PULMONARY ARTERIES CT DOSE: 758.69 mGy.cm HISTORY: Hypoxia. TECHNIQUE: Multiaxial CT images of the chest were performed following the intravenous administration of contrast to evaluate the pulmonary arteries. Maximal intensity projection images were also obtained. A dose lowering technique was utilized adhering to the principles of ALARA. COMPARISON STUDY: Chest 06/27/2017. FINDINGS: Normal caliber thoracic aorta with no evidence for dissection. The heart is normal in size. No pleural or pericardial effusions. Limited views of the upper abdomen demonstrate a normal liver and spleen. Normal adrenal glands. No mediastinal or hilar lymphadenopathy. The main pulmonary artery is distended at 4 cm. Therefore, this is consistent with pulmonary arterial hypertension. Respiratory motion artifact results in nondiagnostic evaluation of the majority of the segmental and subsegmental pulmonary arteries. The main and lobar pulmonary arteries appear patent. No suspicious lytic or blastic osseous lesions. No pneumothorax. Suboptimal evaluation of the lungs due to the motion artifact. Bibasilar linear densities favor subsegmental atelectasis. No focal lung consolidations to suggest pneumonia. An 8 mm subpleural nodular density within the right lower lobe posteriorly on image 160. IMPRESSION: 1. Respiratory motion artifact. 2. No evidence for central pulmonary embolus. 3. No focal lung consolidations to suggest pneumonia. 4. An 8 mm nodular density within the right lower lobe posteriorly. This favors a small focus of atelectasis. However, [address] follow-up is recommended to ensure resolution. 5. Pulmonary arterial hypertension. Electronically signed by: Tip Avalos M.D. 06/27/2017 2:16 PM Dictated Date/Time: 06/27/2017 2:10 PM
[2017-06-27] MEDS ORDERED: FUROSEMIDE 20 MG TAB PO ONE (15:15)
[2017-06-27] MEDS ORDERED: DOXYCYCLINE HYCLATE 100 MG CAP PO ONE (16:00)
[2017-06-27] MEDS ORDERED: AMOXICILLIN/CLAVULANATE TAB 875 MG TAB PO ONE (16:00)
[2017-06-27] MEDS ORDERED: DXY100 PO (17:19)
[2017-06-27] MEDS ORDERED: AMOX1TAB43 PO (17:19)
--- NOTE | 2017-06-27 17:37 | Discharge Instructions ---
Discharge Instructions Date of Service Jun 27, 2017. Admission Reason for Admission: Cellilitis,Sepsis Discharge Discharge Diagnosis / Problem: SEPSIS DUE TO L LOWER EXTREMITY CELLULITIS Discharge Goals Goal(s): Decrease discomfort, Improve function, Improve disease control Activity Recommendations Activity Limitations: resume your previous activity . Instructions / Follow-Up Instructions / Follow-Up Follow up with Fang Martell PA-C ( Dr. Huggins's colleague) on 07/01 @ 12:45 pm Complete the course of Antibiotic with doxycycline and Augmentin Follow a healthy diabetes diet and weight loss Repeat imaging in 3 months to follow up lung nodule Fall precaution Current Hospital Diet Patient's current hospital diet: AHA Diet (Heart Healthy), Diabetes Type 2 Diet Discharge Diet Recommended Diet: AHA Diet (Heart Healthy), Low Sodium Diet (2gm Na) Pending Studies Studies pending at discharge: no Medical Emergencies . Who to Call and When: Medical Emergencies: If at any time you feel your situation is an emergency, please call 911 immediately. . Non-Emergent Contact Non-Emergency issues call your: Primary Care Provider Call Non-Emergent contact if: you have a fever, you have any medication questions . . "Provider Documentation" section prepared by Lisa Ny. . VTE Core Measure Inpt VTE Proph given/why not?: Unfractionated heparin SQ
[2017-06-27] MEDS ORDERED: VANCOMYCIN INJ 1,750 MG in SODIUM CHLORIDE 0.9% 500ML 500 ML IV SCH (20:00)
[2017-06-27] MEDS ORDERED: DOXYCYCLINE HYCLATE 100 MG CAP PO SCH (21:00)
[2017-06-28] MEDS ORDERED: AMOXICILLIN/CLAVULANATE TAB 875 MG TAB PO SCH (08:00)
[2017-06-28] MEDS ORDERED: VANCOMYCIN TROUGH SCH (15:30)
[2017-06-29] MEDS ORDERED: VANCOMYCIN TROUGH SCH (11:30)
--- NOTE | 2017-06-30 14:17 | Discharge Summary ---
Discharge Summary Date of Service Jun 30, 2017. Discharge Summary Admission Date: Jun 23, 2017 at 18:49 Discharge Date: Jun 27, 2017 Discharge Disposition: Home Principal Diagnosis: SEPSIS DUE TO LLE CELLULITIS Secondary Diagnoses/Problems: Hypoxia HTN Diabetes Hypothyroidism Dyslipidemia Procedures: CHEST CTA for PULMONARY ARTERIES CT DOSE: 758.69 mGy.cm HISTORY: Hypoxia. TECHNIQUE: Multiaxial CT images of the chest were performed following the intravenous administration of contrast to evaluate the pulmonary arteries. Maximal intensity projection images were also obtained. A dose lowering technique was utilized adhering to the principles of ALARA. COMPARISON STUDY: Chest 06/27/2017. FINDINGS: Normal caliber thoracic aorta with no evidence for dissection. The heart is normal in size. No pleural or pericardial effusions. Limited views of the upper abdomen demonstrate a normal liver and spleen. Normal adrenal glands. No mediastinal or hilar lymphadenopathy. The main pulmonary artery is distended at 4 cm. Therefore, this is consistent with pulmonary arterial hypertension. Respiratory motion artifact results in nondiagnostic evaluation of the majority of the segmental and subsegmental pulmonary arteries. The main and lobar pulmonary arteries appear patent. No suspicious lytic or blastic osseous lesions. No pneumothorax. Suboptimal evaluation of the lungs due to the motion artifact. Bibasilar linear densities favor subsegmental atelectasis. No focal lung consolidations to suggest pneumonia. An 8 mm subpleural nodular density within the right lower lobe posteriorly on image 160. IMPRESSION: 1. Respiratory motion artifact. 2. No evidence for central pulmonary embolus. 3. No focal lung consolidations to suggest pneumonia. 4. An 8 mm nodular density within the right lower lobe posteriorly. This favors a small focus of atelectasis. However, [address] follow-up is recommended to ensure resolution. 5. Pulmonary arterial hypertension. Electronically signed by: Tip Avalos M.D. 06/27/2017 2:16 PM Dictated Date/Time: 06/27/2017 2:[address] LEFT LOWER EXTREMITY WITH CONTRAST CT DOSE: 616.88 mGy.cm CLINICAL HISTORY: Left knee pain. Possible septic arthritis. Possible joint effusion. TECHNIQUE: The patient was scanned in a dynamic helical fashion during intravenous administration of 112 cc of Optiray 320. Imaging was obtained from the lower thigh to the foot. A dose lowering technique was utilized adhering to the principles of ALARA. COMPARISON STUDY: Conventional radiographic study dated 10/08/2016 FINDINGS: There is marked artifact secondary to a left knee arthroplasty. There are no fluid collections to indicate an abscess. No intramuscular masses are visualized. There is diffuse soft tissue edema. No fractures are visualized. There is no evidence of a significant joint effusion. There are multiple soft tissue calcifications within the lower anteromedial leg. IMPRESSION: 1. Postsurgical changes of a total left knee arthroplasty 2. No evidence of acute fracture 3. No evidence of joint effusion 4. Diffuse edema. 5. No CT evidence of osteomyelitis Electronically signed by: Todd Joshi M.D. 06/23/2017 8:24 PM Dictated Date/Time: 06/23/2017 8:18 PM [~ rep ct add3]] ULTRASOUND VENOUS DOPPLER ULTRASOUND OF THE LEFT LOWER EXTREMITY CLINICAL HISTORY: Left leg edema COMPARISON STUDY: No previous studies for comparison. FINDINGS: Real-time and color flow Doppler imaging were performed. Flow was seen within the femoral, popliteal and calf veins with no intraluminal thrombus demonstrated. The saphenous vein is patent. Note is made of prominent fatty replaced left inguinal lymph nodes the largest of which measures 41 x 21 x 36 mm. IMPRESSION: No evidence of left lower extremity DVT. Electronically signed by: Todd Joshi M.D. 06/23/2017 10:44 PM Dictated Date/Time: 06/23/2017 10:43 PM Consultations: ortho Medication Reconciliation New Medications: Amoxicillin & Pot Clavulanate (Amoxicillin/Clavulanate P) 1 Tab Tab 875 MG PO BIDM for 7 Days, TAB Doxycycline Hyclate (Doxycycline Hyclate) 100 Mg Cap 100 MG PO BID for 7 Days, #14 CAP Continued Medications: Aspirin (Aspirin Ec) 81 Mg Tab 81 MG PO DAILY Cholecalciferol (Vitamin D3) 1,000 Unit Tab 1 TAB PO DAILY for 90 Days, #90 TAB 3 Refills Cyanocobalamin (Vitamin B-12) 500 Mcg Tab 500 MCG PO DAILY, TAB Levothyroxine Sodium (Synthroid) 200 Mcg Tab 200 MCG PO QAM, TAB TAKE WITH 25 MCG = 225 mg Levothyroxine Sodium (Synthroid) 25 Mcg Tab 25 MCG PO DAILY, TAB Lisinopril (Zestril) 10 Mg Tab 10 MG PO QPM, TAB Metformin Hcl (Glucophage) 500 Mg Tab 500 MG PO BID, TAB Multivitamins/Minerals (Mvi With Minerals) Tab 1 TAB PO DAILY, TAB Simvastatin (Zocor) 20 Mg Tab 20 MG PO QPM, TAB Tramadol (Ultram) 50 Mg Tab 1-2 TABS PO Q8H PRN for Pain, TAB Admission Information HPI (per Admitting provider): 57 year old male who presents to the ER with LLE redness and pain. Patient reports his symptoms started yesterday. He reports he first noticed the redness to his LLE in the afternoon. He reports it has been progressively getting worse. He first noticed it on the anterior aspect of his ferro. He also had associated pain in the area. He had chills yesterday and suspected he had a fever but did not take his temperature. He was seen at his PCPs office today and was given a dose of IM Rocephin and prescription for Bactrim. He was noted be febrile in the office at 103.7. He had outpatient labs that showed a leukocytosis so he was referred to the ED for further evaluation. He noted last week his dog scratched his leg. He denies any other known trauma or injury to the leg. He denies any recent travel. He had his left knee replaced several months ago and has had persistent pain in the left knee. He feels like the pain is a little worse than normal. He denies chest pain and shortness of breath. He has had a poor appetite but denies abdominal pain, vomiting, or diarrhea. No urinary symptoms. In the ED, patient is found to have WBC 18K and tachycardic in the low 100s. BP is stable. POC lactic acid is mildly elevated. He was given IV Rocephin and started on IVF. Physical Exam (per Admitting): General Appearance: no apparent distress Head: normocephalic, atraumatic Eyes: normal inspection, sclerae normal ENT: hearing grossly normal Neck: supple, no JVD Respiratory/Chest: no respiratory distress, + decreased breath sounds Cardiovascular: regular rate, rhythm, + pertinent finding (+1-2 edema RLE, + 2-3 edema LLE) Abdomen/GI: normal bowel sounds, non tender, soft Extremities/Musculoskelatal: + pertinent finding (pain with flexion and extension of the left knee) Neurologic/Psych: no motor/sensory deficits, alert, normal mood/affect, oriented x 3 Skin: + pertinent finding (erythema noted to to the anterior and posterior aspects of the LLE extending from the ankle up to the knee, erythema noted over prior TKA incisional scar; very warm to touch; no open areas or drainage) Hospital Course SEPSIS DUE TO LLE CELLULITIS - meets sepsis criteria - WBC 18K, tachycardic, febrile on admission - s/p IV Rocephin in the ED - blood cx no growth - Continue IV Zosyn and Vanco - Elevated WBC - CT of L knee showed no evidence of joint effusion or osteomyelitis - Xray of L Knee showed total knee arthroplasty good position. No significant joint effusion - Doppler U/S was negative for DVT - Ortho on board recommended to continue IV abx, no surgical intervention at this time - Erythema improved significantly - On IV abx with zosyn and canco day 5 -plan to change abx to PO doxy and Augmentin - Echo showed * The left ventricle is normal in size. * There is borderline concentric left ventricular hypertrophy. * The left ventricular wall motion is normal. * Left ventricular systolic function is normal. * Ejection Fraction = 60-65%. * There are no valve abnormalities visualized. Hypoxia associated with tachycardia CXR showed minimal bibasilar atelectasis may be present. No other focal infiltrate. Need to r/o PE D-dimer elevated CT chest showed 1. Respiratory motion artifact. 2. No evidence for central pulmonary embolus. 3. No focal lung consolidations to suggest pneumonia. 4. An 8 mm nodular density within the right lower lobe posteriorly. This favors a small focus of atelectasis. However, [address] follow-up is recommended to ensure resolution. DM - hgb a1c 5.3 03/2017 - hold oral agents and utilize SSI while hospitalized HTN - Lisinopril was on hold due to dye load with CT - resume as renal functions and BP allow - BP stable and controlled - Lisinopril was resume this morning - since pt is going for CTA chest, will hold tomorrow dose of lisinopril HYPOTHYROIDISM - TSH WNL - continue home dose of levothyroxine for now DYSLIPIDEMIA - continue statin DVT PROPHYLAXIS - SQ Lovenox DISPOSITION Discharge home today Will discharge once medically stable Total time spent on discharge = 35 minutes This includes examination of the patient, discharge planning, medication reconciliation, and communication with other providers. Discharge Instructions Discharge Instructions Date of Service Jun 27, 2017. Admission Reason for Admission: Cellulitis,Sepsis Discharge Discharge Diagnosis / Problem: SEPSIS DUE TO L LOWER EXTREMITY CELLULITIS Discharge Goals Goal(s): Decrease discomfort, Improve function, Improve disease control Activity Recommendations Activity Limitations: resume your previous activity . Instructions / Follow-Up Instructions / Follow-Up Follow up with Fang Martell PA-C ( Dr. Huggins's colleague) on 07/01 @ 12:45 pm Complete the course of Antibiotic with doxycycline and Augmentin Follow a healthy diabetes diet and weight loss Repeat imaging in 3 months to follow up lung nodule Fall precaution Current Hospital Diet Patient's current hospital diet: AHA Diet (Heart Healthy), Diabetes Type 2 Diet Discharge Diet Recommended Diet: AHA Diet (Heart Healthy), Low Sodium Diet (2gm Na) Pending Studies Studies pending at discharge: no Medical Emergencies . Who to Call and When: Medical Emergencies: If at any time you feel your situation is an emergency, please call 911 immediately. . Non-Emergent Contact Non-Emergency issues call your: Primary Care Provider Call Non-Emergent contact if: you have a fever, you have any medication questions . . "Provider Documentation" section prepared by Lisa Ny. . VTE Core Measure Inpt VTE Proph given/why not?: Unfractionated heparin SQ Signed: Signed: The status of this report is Draft * If report status is Draft, the document has not been finalized by the responsible provider. Additional Copies To Kevin Huggins M.D.
== END 2017-06-27 18:15 | disposition home or self-care (01) | DRG 872 ==
LOC: C.EDB 15:56 → C.MED 18:49 → EDBEDREQSVC 18:50 → EDBEDREQ 18:50 → ENRESERV 19:13
PROVIDERS: ADMIT Hospitalist; ATTEND Internal Medicine
DX: A41.9 Sepsis, unspecified organism (principal); L03.116 Cellulitis of left lower limb; R09.02 Hypoxemia; R00.0 Tachycardia, unspecified; E11.9 Type 2 diabetes mellitus without complications; I10 Essential (primary) hypertension; E03.9 Hypothyroidism, unspecified; E78.5 Hyperlipidemia, unspecified; R91.8 Other nonspecific abnormal finding of lung field; F10.20 Alcohol dependence, uncomplicated; F17.200 Nicotine dependence, unspecified, uncomplicated; Z96.652 Presence of left artificial knee joint; Z79.82 Long term (current) use of aspirin; Z79.84 Long term (current) use of oral hypoglycemic drugs; Z79.899 Other long term (current) drug therapy; Z82.49 Family history of ischemic heart disease and other diseases of the circulatory system; Z84.1 Family history of disorders of kidney and ureter

== ENCOUNTER 2017-07-01 14:21 | Inpatient (IN) | payer OTHER ==
[~2017-07-01] VITALS: Ht 167.6 cm; Wt 139.4 kg
[~2017-07-01 14:21] MED LIST changes: -ACET-1138 PO; +AMOX1TAB43 PO; -ASPEC81 PO; +ASPI81TA28 PO; -CLC100 PO; +CYAN500T PO; -CYAN500T13 PO; +DXY100 PO; -INHALER INH; +LEVO25TA PO; -MULT-506 PO; +MULT-513 PO; -OXYSR10 PO; -RXC5 PO; +TRAM-10 PO
[2017-07-01] MEDS ORDERED: VANCOMYCIN INJ 2,750 MG in SODIUM CHLORIDE 0.9% 500ML 500 ML IV STA (14:56)
--- NOTE | 2017-07-01 15:25 | DIAGNOSTIC IMAGING REPORT ---
CHEST ONE VIEW PORTABLE CLINICAL HISTORY: 57 years-old Male presenting with Sepsis. TECHNIQUE: Portable upright AP view of the chest was obtained. COMPARISON: 06/27/2017. FINDINGS: Cardiac silhouette remains enlarged. Apparent hazy bibasilar opacities likely from overlying soft tissue, correlating to chest CT from 06/27/2017, as this radiographic appearance is unchanged from prior. No focal infiltrate. No pleural effusion or pneumothorax. Osseous structures normal. Upper abdomen normal. IMPRESSION: 1. Mild cardiomegaly. Otherwise no acute cardiopulmonary disease. Electronically signed by: Perfecto Weber M.D. 07/01/2017 3:24 PM Dictated Date/Time: 07/01/2017 3:21 PM
[2017-07-01 15:47] LABS: BASO % 0.2 %; BASO ABS # 0.04 K/uL (0-0.2); COMPLETE YES; EOS % 2.5 %; HEMATOCRIT 34.1 % (42-52); IG% 0.9 %; LYMPH % 8.2 %; MEAN CELL VOLUME 97.7 fL (80-100); MEAN CORPUSCULAR HEMOGLOBIN 32.4 pg (25-34); MEAN CORPUSCULAR HGB CONC 33.1 g/dl (32-36); MEAN PLATELET VOLUME 9.8 fL (7.4-10.4); MONO % 5.7 %; NEUT % 82.5 %; PLATELET COUNT 306 K/uL (130-400); RED BLOOD COUNT 3.49 M/uL (4.7-6.1); WHITE BLOOD COUNT 20.64 K/uL (4.8-10.8)
[2017-07-01 15:57] LABS: INR 1.1 (0.9-1.1); PARTIAL THROMBOPLASTIN RATIO 1.1; PROTHROMBIN TIME (PATIENT) 11.6 SECONDS (9.0-12.0)
[2017-07-01 16:06] LABS: BUN/CREATININE RATIO 7.7 (10-20); CALCIUM 8.6 mg/dl (8.5-10.1); CREATININE 0.82 mg/dl (0.60-1.40); POTASSIUM 3.1 mmol/L (3.5-5.1)
[2017-07-01 16:09] LABS: ALB/GLOB RATIO 0.5 (0.9-2)
[2017-07-01] MEDS ORDERED: MoRPHine SULFATE 4 MG/ML 1 ML CARP\\VIAL IV STA (17:02)
[2017-07-01 17:44] VITALS: O2SAT 98; Ht 167.6 cm; Wt 139.4 kg
--- NOTE | 2017-07-01 18:54 | EMERGENCY ROOM VISIT NOTE ---
History Report prepared by Nelson: Joanna Johnson Under the Supervision of: Dr. Toni Lopez M.D. First contact with patient: 14:39 Chief Complaint: INFECTION Stated Complaint: LEG-RED History of Present Illness The patient is a 57 year old male who presents to the Emergency Room with complaints of a worsening infection for the past week. The patient was admitted to the hospital June 23 for sepsis secondary to left lower extremity cellulitis. He was discharged home on Augmentin and doxycycline, which he started taking 3 days ago. He developed a rash on his abdomen, back and upper extremities. He states that the rash is slightly itchy and it became worse today. The patient also notes that the infection in his left leg is worsening. It was just red, warm, and painful below the knee, but now this has extended up his thigh. reports a fever of 100.2. The patient denies vomiting, shortness of breath, trouble breathing, swelling to his tongue or throat and difficulty swallowing. He rates his current pain as a 9/10 in severity. Source of History: patient Onset: 1 week ago Position: other (global) Symptom Intensity: 9/10 Quality: other (infection) Timing: worsening Associated Symptoms: + fevers, + rash, No SOB, No vomiting Review of Systems See HPI for pertinent positives & negatives. A total of 10 systems reviewed and were otherwise negative. Past Medical & Surgical Medical Problems: (1) DM type 2 (diabetes mellitus, type 2) (2) Dyslipidemia (3) HTN (hypertension) (4) Hypothyroidism (5) MICAH (obstructive sleep apnea) Surgical Problems: (1) History of left knee replacement Family History FH: CAD (coronary artery disease) FATHER Kidney disease BROTHER Social History Smoking Status: Current Every Day Smoker Housing Status: lives with family Current/Historical Medications Scheduled Amoxicillin & Pot Clavulanate (Amoxicillin/Clavulanate P), 875 MG PO BIDM Aspirin (Aspirin Ec), 81 MG PO DAILY Cholecalciferol (Vitamin D3), 1 TAB PO DAILY Cyanocobalamin (Vitamin B-12), 500 MCG PO DAILY Doxycycline Hyclate (Doxycycline Hyclate), 100 MG PO BID Levothyroxine Sodium (Synthroid), 200 MCG PO QAM Levothyroxine Sodium (Synthroid), 25 MCG PO DAILY Lisinopril (Zestril), 10 MG PO QPM Metformin Hcl (Glucophage), 500 MG PO BID Multivitamins/Minerals (Mvi With Minerals), 1 TAB PO DAILY Simvastatin (Zocor), 20 MG PO QPM Scheduled PRN Tramadol (Ultram), 1-2 TABS PO Q8H PRN for Pain Allergies Coded Allergies: Amoxicillin (Verified Allergy, Mild, generalized rash; secondary to augmentin vs doxy, 07/01/17) diffuse full body rash (minimal pruritis) developed ~36 hours after starting Augmentin + Doxycycline for cellulitis. no respiratory compromise of swelling noted Clavulanic Acid (Verified Allergy, Mild, generalized rash; secondary to augmentin vs doxy, 07/01/17) diffuse full body rash (minimal pruritis) developed ~36 hours after starting Augmentin + Doxycycline for cellulitis. no respiratory compromise of swelling noted Doxycycline (Verified Allergy, Mild, generalized rash; secondary to augmentin vs doxy, 07/01/17) diffuse full body rash (minimal pruritis) developed ~36 hours after starting Augmentin + Doxycycline for cellulitis. no respiratory compromise of swelling noted Physical Exam Vital Signs Date Time Temp Pulse Resp B/P (MAP) Pulse Ox O2 Delivery O2 Flow Rate FiO2 07/01/17 17:44 98 Nasal Cannula 2.0 07/01/17 17:00 90 16 101/57 98 Room Air 07/01/17 16:09 91 07/01/17 15:32 92 20 101/57 98 Nasal Cannula 2.0 07/01/17 15:30 97 Nasal Cannula 2.0 07/01/17 15:30 80 Room Air 07/01/17 14:23 36.9 112 22 120/80 92 Room Air Physical Exam Constitutional: Vital signs reviewed. Eyes: Pupils are equal round reactive to light. Conjunctiva are noninjected. ENT: Pharynx is clear without erythema or exudate. Mucous membranes are moist. No uvula or tongue edema. Neck supple without meningeal signs. Respiratory: Clear to auscultation bilaterally. Breath sounds are equal bilaterally. No wheezing or stridor. Cardiovascular: Regular rate and rhythm. No rubs or gallops. GI: Soft, nondistended and nontender. Bowel sounds are present. Musculoskeletal: Diffuse erythema to the left lower extremity extending up to the proximal thigh, without crepitus, blistering to the lower calf, no purulent drainage. Integumentary: He has diffuse papular erythematous rash to the trunk and extremities that is easily blanchable, it is coalesced to the back. No vesicles or bullae except as noted above. No cyanosis. Neurological: The patient is awake and alert. No focal deficits. Psychiatric: Normal affect. Medical Decision & Procedures ER Provider Diagnostic Interpretation: Radiology results as stated below per my review and the radiologist's interpretation: CHEST ONE VIEW PORTABLE CLINICAL HISTORY: 57 years-old Male presenting with Sepsis. TECHNIQUE: Portable upright AP view of the chest was obtained. COMPARISON: 06/27/2017. FINDINGS: Cardiac silhouette remains enlarged. Apparent hazy bibasilar opacities likely from overlying soft tissue, correlating to chest CT from 06/27/2017, as this radiographic appearance is unchanged from prior. No focal infiltrate. No pleural effusion or pneumothorax. Osseous structures normal. Upper abdomen normal. IMPRESSION: 1. Mild cardiomegaly. Otherwise no acute cardiopulmonary disease. Electronically signed by: Perfecto Weber M.D. 07/01/2017 3:24 PM Dictated Date/Time: 07/01/2017 3:21 PM Laboratory Results 07/01/17 15:23 Red Blood Count 3.49, Mean Corpuscular Volume 97.7, Mean Corpuscular Hemoglobin 32.4, Mean Corpuscular Hemoglobin Concent 33.1, Mean Platelet Volume 9.8, Neutrophils (%) (Auto) 82.5, Lymphocytes (%) (Auto) 8.2, Monocytes (%) (Auto) 5.7, Eosinophils (%) (Auto) 2.5, Basophils (%) (Auto) 0.2, Neutrophils # (Auto) 17.03, Lymphocytes # (Auto) 1.70, Monocytes # (Auto) 1.17, Eosinophils # (Auto) 0.52, Basophils # (Auto) 0.04 07/01/17 15:23 Test 07/01/17 15:03 07/01/17 15:23 Bedside Lactic Acid Venous 1.40 mmol/L (0.90-1.70) White Blood Count 20.64 K/uL (4.8-10.8) Red Blood Count 3.49 M/uL (4.7-6.1) Hemoglobin 11.3 g/dL (14.0-18.0) Hematocrit 34.1 % (42-52) Mean Corpuscular Volume 97.7 fL (80-100) Mean Corpuscular Hemoglobin 32.4 pg (25-34) Mean Corpuscular Hemoglobin Concent 33.1 g/dl (32-36) Platelet Count 306 K/uL (130-400) Mean Platelet Volume 9.8 fL (7.4-10.4) Neutrophils (%) (Auto) 82.5 % Lymphocytes (%) (Auto) 8.2 % Monocytes (%) (Auto) 5.7 % Eosinophils (%) (Auto) 2.5 % Basophils (%) (Auto) 0.2 % Neutrophils # (Auto) 17.03 K/uL (1.4-6.5) Lymphocytes # (Auto) 1.70 K/uL (1.2-3.4) Monocytes # (Auto) 1.17 K/uL (0.11-0.59) Eosinophils # (Auto) 0.52 K/uL (0-0.5) Basophils # (Auto) 0.04 K/uL (0-0.2) RDW Standard Deviation 46.1 fL (36.4-46.3) RDW Coefficient of Variation 13.0 % (11.5-14.5) Immature Granulocyte % (Auto) 0.9 % Immature Granulocyte # (Auto) 0.18 K/uL (0.00-0.02) Prothrombin Time 11.6 SECONDS (9.0-12.0) Prothromb Time International Ratio 1.1 (0.9-1.1) Activated Partial Thromboplast Time 29.4 SECONDS (21.0-31.0) Partial Thromboplastin Ratio 1.1 Anion Gap 7.0 mmol/L (3-11) Est Creatinine Clear Calc Drug Dose 132.2 ml/min Estimated GFR () 113.8 Estimated GFR (Non- 98.2 BUN/Creatinine Ratio 7.7 (10-20) Calcium Level 8.6 mg/dl (8.5-10.1) Total Bilirubin 0.4 mg/dl (0.2-1) Aspartate Amino Transf (AST/SGOT) 12 U/L (15-37) Alanine Aminotransferase (ALT/SGPT) 17 U/L (12-78) Alkaline Phosphatase 69 U/L (45-117) Total Protein 6.4 gm/dl (6.4-8.2) Albumin 2.1 gm/dl (3.4-5.0) Globulin 4.3 gm/dl (2.5-4.0) Albumin/Globulin Ratio 0.5 (0.9-2) Laboratory results as reviewed by me. Medications Administered Medications (Trade) Dose Ordered Sig/Noble Route Start Time Stop Time Status Last Admin Dose Admin Vancomycin HCl 2750 mg/Sodium Chloride 555 ml @ 200 mls/hr NOW STAT IV 07/01/17 14:56 07/01/17 17:42 DC 07/01/17 15:38 200 MLS/HR Morphine Sulfate (MoRPHine SULFATE INJ) 4 mg NOW STAT IV 07/01/17 17:02 07/01/17 17:03 DC 07/01/17 17:17 4 MG ED Course 1439: The patient was evaluated in room B5. A complete history and physical exam was performed. 1456: Vancomycin HCl 2750 mg/Sodium Chloride 555 ml @ 200 mls/hr IV 1611: I reassessed the patient at this time. He is resting comfortably. I discussed the results and treatment plan with patient. I answered all pertaining questions that he had. He expressed understanding and verbalized agreement. 1632: I discussed the patient's case with Dr. Rao. The patient will be evaluated by the [facility] for further management. Medical Decision This is a 57-year-old male who presents with a rash as well as redness to his left leg. Differential diagnosis includes drug reaction, allergic reaction, sepsis, cellulitis, necrotizing fasciitis. I did perform a limited focused review of portions of the patient's old chart on the electronic medical record. The patient was admitted June 23 for sepsis secondary to left lower extremity cellulitis. His cultures showed no growth. I did evaluate the patient as noted above. The patient is presenting with a rash. His body. He has been on Augmentin and doxycycline. He likely has a drug eruption to penicillin but we could not rule out allergic reaction. He also has worsening cellulitis of his left leg. There is no evidence of necrotizing fasciitis. No crepitus. It is diffusely erythematous and warm to touch. IV access was established. Blood cultures were obtained. I did treat the patient with vancomycin IV. I did order and personally review the patient' s chest x-ray as described above. I did order and review the patient's blood work as noted in the electronic medical record. His white blood cell count is over 20,000. I did discuss the case with the [facility] case supervisor for admission. The patient was given IV morphine for pain. Medication Reconcilliation Current Medication List: was personally reviewed by me Blood Pressure Screening Patient's blood pressure: Normal blood pressure Consults Time Called: 1629 Consulting Physician: Dr. Rao Returned Call: 1632 I discussed the patient's case with Dr. Rao. The patient will be evaluated by the [facility] for further management. Impression Primary Impression: Left leg cellulitis Additional Impressions: Hypokalemia Drug reaction Failure of outpatient treatment Scribe Attestation The scribe's documentation has been prepared under my direct and personally reviewed by me in its entirety. I confirm that the note above accurately reflects all work, treatment, procedures, and medical decision making performed by me. Departure Information Dispostion Being Evaluated By Hospitalist Referrals No Doctor, Assigned (PCP) Patient Instructions My [facility] Problem Qualifiers Additional Impressions: Drug reaction Encounter type: initial encounter Qualified Codes: T88.7XXA - Unspecified adverse effect of drug or medicament, initial encounter
--- NOTE | 2017-07-01 19:12 | History and Physical ---
History & Physical Date & Time of Service: Jul 01, 2017 at 19:12 . Chief Complaint: worsening swelling and redness of left leg; rash . Primary Care Physician: Kevin Huggins M.D. . History of Present Illness Source: patient, clinic records, hospital records 57 [address]O male followed by Dr. Huggins for Family Medicine. History of diabetes type 2 and other problems noted below. Hospitalized at [facility] 06/23/17 with cellulitis of LLE. Received IV antibiotics (ceftriaxone, piperacillin / tazobactam, vancomycin with improvement. Blood culture negative. Discharged on 06/27/17 with Rx's for doxycycline and amoxicillin / clavulanic acid. Has developed worsening erythema and swelling of left leg over past few days. Also developed a rash involving his trunk and extremities. No fever. No CP or SOB. No nausea, vomiting, diarrhea. . Past Medical/Surgical History Chronic Medical Problems: (1) DM type 2 (diabetes mellitus, type 2) Status: Chronic (2) Dyslipidemia Status: Chronic (3) HTN (hypertension) Status: Chronic (4) Hypothyroidism Status: Chronic (5) MICAH (obstructive sleep apnea) Status: Chronic Surgical Problems: (1) History of left knee replacement Status: Chronic . Family History FH: CAD (coronary artery disease) FATHER Kidney disease BROTHER Social History Smoking Status: Current Every Day Smoker Alcohol Use: socially Immunizations History of Influenza Vaccine: Yes History of Tetanus Vaccine?: Yes Tetanus Immunization Date: Nov 23, 2007 History of Pneumococcal: Yes Allergies Coded Allergies: Amoxicillin (Verified Allergy, Mild, generalized rash; secondary to augmentin vs doxy, 07/01/17) diffuse full body rash (minimal pruritis) developed ~36 hours after starting Augmentin + Doxycycline for cellulitis. no respiratory compromise of swelling noted Clavulanic Acid (Verified Allergy, Mild, generalized rash; secondary to augmentin vs doxy, 07/01/17) diffuse full body rash (minimal pruritis) developed ~36 hours after starting Augmentin + Doxycycline for cellulitis. no respiratory compromise of swelling noted Doxycycline (Verified Allergy, Mild, generalized rash; secondary to augmentin vs doxy, 07/01/17) diffuse full body rash (minimal pruritis) developed ~36 hours after starting Augmentin + Doxycycline for cellulitis. no respiratory compromise of swelling noted Home Medications Scheduled Amoxicillin & Pot Clavulanate (Amoxicillin/Clavulanate P), 875 MG PO BIDM Aspirin (Aspirin Ec), 81 MG PO DAILY Cholecalciferol (Vitamin D3), 1 TAB PO DAILY Cyanocobalamin (Vitamin B-12), 500 MCG PO DAILY Doxycycline Hyclate (Doxycycline Hyclate), 100 MG PO BID Levothyroxine Sodium (Synthroid), 200 MCG PO QAM Levothyroxine Sodium (Synthroid), 25 MCG PO DAILY Lisinopril (Zestril), 10 MG PO QPM Metformin Hcl (Glucophage), 500 MG PO BID Multivitamins/Minerals (Mvi With Minerals), 1 TAB PO DAILY Simvastatin (Zocor), 20 MG PO QPM Scheduled PRN Tramadol (Ultram), 1-2 TABS PO Q8H PRN for Pain Review of Systems As noted above in HPI. . Physical Exam Vital Signs Date Time Temp Pulse Resp B/P (MAP) Pulse Ox O2 Delivery O2 Flow Rate FiO2 07/01/17 17:44 98 Nasal Cannula 2.0 07/01/17 17:00 90 16 101/57 98 Room Air 07/01/17 16:09 91 07/01/17 15:32 92 20 101/57 98 Nasal Cannula 2.0 07/01/17 15:30 97 Nasal Cannula 2.0 07/01/17 15:30 80 Room Air 07/01/17 14:23 36.9 112 22 120/80 92 Room Air General Appearance: no apparent distress, + obese Head: normocephalic, atraumatic Eyes: normal inspection, PERRL, EOMI, sclerae normal (conjunctivae pink) ENT: hearing grossly normal, pharynx normal, + pertinent finding (no oral ulcers) Neck: supple, no adenopathy, thyroid normal, no JVD, trachea midline Respiratory/Chest: lungs clear, no respiratory distress, no accessory muscle use Cardiovascular: regular rate, rhythm, no gallop, no JVD, no murmur, + pertinent finding (lower extremity edema, L > R) Abdomen/GI: normal bowel sounds, non tender, soft, no organomegaly, no pulsatile mass, + pertinent finding (obese) Extremities/Musculoskelatal: + pedal edema, + pertinent finding (swelling and extensive erythema LLE (leg and thigh), bullous lesions with shallow ulcerations ) Neurologic/Psych: computerized mill recorder II-XII nml as tested (PERRL, EOMI, no facial palsy, no dysarthria), no motor/sensory deficits (grossly intact), alert, normal mood/ affect, oriented x 3 Skin: warm/dry, + pertinent finding (extensive maculopapular rash trunk and extremities; LLE findings as noted above) Lymphatic: no adenopathy (cervical) Diagnostics Laboratory Results Results Past 24 Hours Test 07/01/17 15:03 07/01/17 15:23 Range/Units Bedside Lactic Acid Venous 1.40 0.90-1.70 mmol/L White Blood Count 20.64 4.8-10.8 K/uL Red Blood Count 3.49 4.7-6.1 M/uL Hemoglobin 11.3 14.0-18.0 g/dL Hematocrit 34.1 42-52 % Mean Corpuscular Volume 97.7 80-100 fL Mean Corpuscular Hemoglobin 32.4 25-34 pg Mean Corpuscular Hemoglobin Concent 33.1 32-36 g/dl Platelet Count 306 130-400 K/uL Mean Platelet Volume 9.8 7.4-10.4 fL Neutrophils (%) (Auto) 82.5 % Lymphocytes (%) (Auto) 8.2 % Monocytes (%) (Auto) 5.7 % Eosinophils (%) (Auto) 2.5 % Basophils (%) (Auto) 0.2 % Neutrophils # (Auto) 17.03 1.4-6.5 K/uL Lymphocytes # (Auto) 1.70 1.2-3.4 K/uL Monocytes # (Auto) 1.17 0.11-0.59 K/uL Eosinophils # (Auto) 0.52 0-0.5 K/uL Basophils # (Auto) 0.04 0-0.2 K/uL RDW Standard Deviation 46.1 36.4-46.3 fL RDW Coefficient of Variation 13.0 11.5-14.5 % Immature Granulocyte % (Auto) 0.9 % Immature Granulocyte # (Auto) 0.18 0.00-0.02 K/uL Prothrombin Time 11.6 9.0-12.0 SECONDS Prothromb Time International Ratio 1.1 0.9-1.1 Activated Partial Thromboplast Time 29.4 21.0-31.0 SECONDS Partial Thromboplastin Ratio 1.1 Sodium Level 143 136-145 mmol/L Potassium Level 3.1 3.5-5.1 mmol/L Chloride Level 101 98-107 mmol/L Carbon Dioxide Level 35 21-32 mmol/L Anion Gap 7.0 3-11 mmol/L Blood Urea Nitrogen 6 7-18 mg/dl Creatinine 0.82 0.60-1.40 mg/dl Est Creatinine Clear Calc Drug Dose 132.2 ml/min Estimated GFR () 113.8 Estimated GFR (Non- 98.2 BUN/Creatinine Ratio 7.7 10-20 Random Glucose 118 70-99 mg/dl Calcium Level 8.6 8.5-10.1 mg/dl Total Bilirubin 0.4 0.2-1 mg/dl Aspartate Amino Transf (AST/SGOT) 12 15-37 U/L Alanine Aminotransferase (ALT/SGPT) 17 12-78 U/L Alkaline Phosphatase 69 45-117 U/L Total Protein 6.4 6.4-8.2 gm/dl Albumin 2.1 3.4-5.0 gm/dl Globulin 4.3 2.5-4.0 gm/dl Albumin/Globulin Ratio 0.5 0.9-2 Microbiology Results 07/01/17 Blood Culture, Received Pending 07/01/17 Blood Culture, Received Pending Diagnostic Radiology CHEST ONE VIEW PORTABLE FINDINGS: Cardiac silhouette remains enlarged. Apparent hazy bibasilar opacities likely from overlying soft tissue, correlating to chest CT from 06/27/2017, as this radiographic appearance is unchanged from prior. No focal infiltrate. No pleural effusion or pneumothorax. Osseous structures normal. Upper abdomen normal. IMPRESSION: 1. Mild cardiomegaly. Otherwise no acute cardiopulmonary disease. Electronically signed by: Perfecto Weber M.D. 07/01/2017 3:24 PM Dictated Date/Time: 07/01/2017 3:21 PM . Impression Assessment and Plan CELLULITIS LEFT LOWER EXTREMITY Worsening cellulitis left lower extremity despite oral therapy with doxycycline. WBC elevated. Afebrile in ED. Blood cultures obtained in ED. Received IV vancomycin which will be continued. Add levofloxacin for gram negative coverage. Consult ID. LLE SWELLING Check venous duplex to rule out DVT. RASH Extensive maculopapular rash on trunk and extremities. Most likely drug-eruption secondary to amoxicillin, but cannot exclude doxycycline allergy. Try to avoid steroids if possible due to cellulitis. Diphenhydramine PRN. HYPERTENSION Hemodynamically stable. Continue lisinopril. HYPOKALEMIA Serum K 3.1. PO replacement. Follow. DM TYPE 2 Well-controlled. Random glucose in ED 118. Hold metformin during hospital stay. Check Hgb A1C. Lantus + NovoLog per protocol. HYPOTHYROIDISM Continue levothyroxine. VTE PROPHYLAXIS High risk for VTE. SQ enoxaparin. Ambulate as able. RESUSCITATION STATUS Full code. DISPOSITION Admit to Med-Surg Unit. Expected discharge to home. Family Medicine follow-up with Dr. Maria. . Advanced Directives Existing Living Will: Yes Existing Power of [employer]: Yes (ANN-MARIE SANDHU ) VTE Prophylaxis VTE Risk Assessment Done? Y/N: Yes Risk Level: Moderate Given or contraindicated: Enoxaparin (Lovenox)SQ
[2017-07-01] MEDS ORDERED: POTASSIUM CHLORIDE 20 MEQ TABCR PO ONE (19:31)
[2017-07-01 20:33] VITALS: BP 115/71; PULSE 98; TEMP 37.5; O2SAT 94
[2017-07-01] MEDS: INSULIN ASPART 100 UNITS/ML 3 ML PEN SC SCH (20:41)
[2017-07-01] MEDS ORDERED: GLUCAGON FOR INJ 1 MG VIAL SQ PRN (20:45)
[2017-07-01] MEDS ORDERED: GLUCOSE 10 TABS/TUBE PO PRN (20:45)
[2017-07-01] MEDS ORDERED: DEXTROSE 50% 50 ML SYR IV PRN (20:45)
[2017-07-01] MEDS ORDERED: GLUCOSE 40% GEL 15 GM TUBE PO PRN (20:45)
[2017-07-01] MEDS ORDERED: ENOXAPARIN 40 MG/0.4 ML SYR SQ ONE (21:14)
[2017-07-01] MEDS: OXYCODONE HCL IR 5 MG TAB (IMMEDIATE RELEASE) PO PRN (21:46)
[2017-07-01] MEDS: LISINOPRIL 10 MG TAB PO SCH (21:48)
[2017-07-01] MEDS: SIMVASTATIN 20 MG TAB PO SCH (21:48)
[2017-07-01] MEDS: INSULIN GLARGINE SOLOSTAR 100 UNITS/ML 3 ML PEN SC SCH (21:52)
[2017-07-01] MEDS: ACETAMINOPHEN 325 MG TAB PO PRN (23:57)
[2017-07-02] VITALS (8 sets, daily range): BP systolic 94–124; BP diastolic 58–72; PULSE 97–118; TEMP 37–38.2; O2SAT 91–100
[2017-07-02] MEDS: LEVOFLOXACIN / D5W 750 MG in PREMIXED IN D5W 150 ML IV SCH (00:40)
[2017-07-02] MEDS ORDERED: VANCOMYCIN INJ 1,750 MG in SODIUM CHLORIDE 0.9% 500ML 500 ML IV STA (04:38)
[2017-07-02] MEDS ORDERED: VANCOMYCIN CONSULT ACTIVE PRN (04:45)
--- NOTE | 2017-07-02 04:52 | Pharmacy Progress Note ---
Pharmacy Antibiotic Consult Date of Service: Jul 02, 2017. Pharmacy Dosing Scope * Pharmacy is consulted to initiate Vancomycin IV dosing therapy, order appropriate labs and adjust drug dose/frequency. Subjective * The patient is a 57 year old male admitted on Jul 01, 2017 at 19:11 for cellulitis. Objective Height (Feet): 5 Height (Inches): 6.00 Weight (Kilograms): 139.400 Lab Results (24hrs): Test 07/01/17 15:03 07/01/17 15:23 07/01/17 20:40 Bedside Lactic Acid Venous 1.40 mmol/L (0.90-1.70) White Blood Count 20.64 K/uL (4.8-10.8) Red Blood Count 3.49 M/uL (4.7-6.1) Hemoglobin 11.3 g/dL (14.0-18.0) Hematocrit 34.1 % (42-52) Mean Corpuscular Volume 97.7 fL (80-100) Mean Corpuscular Hemoglobin 32.4 pg (25-34) Mean Corpuscular Hemoglobin Concent 33.1 g/dl (32-36) Platelet Count 306 K/uL (130-400) Mean Platelet Volume 9.8 fL (7.4-10.4) Neutrophils (%) (Auto) 82.5 % Lymphocytes (%) (Auto) 8.2 % Monocytes (%) (Auto) 5.7 % Eosinophils (%) (Auto) 2.5 % Basophils (%) (Auto) 0.2 % Neutrophils # (Auto) 17.03 K/uL (1.4-6.5) Lymphocytes # (Auto) 1.70 K/uL (1.2-3.4) Monocytes # (Auto) 1.17 K/uL (0.11-0.59) Eosinophils # (Auto) 0.52 K/uL (0-0.5) Basophils # (Auto) 0.04 K/uL (0-0.2) RDW Standard Deviation 46.1 fL (36.4-46.3) RDW Coefficient of Variation 13.0 % (11.5-14.5) Immature Granulocyte % (Auto) 0.9 % Immature Granulocyte # (Auto) 0.18 K/uL (0.00-0.02) Prothrombin Time 11.6 SECONDS (9.0-12.0) Prothromb Time International Ratio 1.1 (0.9-1.1) Activated Partial Thromboplast Time 29.4 SECONDS (21.0-31.0) Partial Thromboplastin Ratio 1.1 Sodium Level 143 mmol/L (136-145) Potassium Level 3.1 mmol/L (3.5-5.1) Chloride Level 101 mmol/L (98-107) Carbon Dioxide Level 35 mmol/L (21-32) Anion Gap 7.0 mmol/L (3-11) Blood Urea Nitrogen 6 mg/dl (7-18) Creatinine 0.82 mg/dl (0.60-1.40) Est Creatinine Clear Calc Drug Dose 132.2 ml/min Estimated GFR () 113.8 Estimated GFR (Non- 98.2 BUN/Creatinine Ratio 7.7 (10-20) Random Glucose 118 mg/dl (70-99) Calcium Level 8.6 mg/dl (8.5-10.1) Total Bilirubin 0.4 mg/dl (0.2-1) Aspartate Amino Transf (AST/SGOT) 12 U/L (15-37) Alanine Aminotransferase (ALT/SGPT) 17 U/L (12-78) Alkaline Phosphatase 69 U/L (45-117) Total Protein 6.4 gm/dl (6.4-8.2) Albumin 2.1 gm/dl (3.4-5.0) Globulin 4.3 gm/dl (2.5-4.0) Albumin/Globulin Ratio 0.5 (0.9-2) Bedside Glucose 104 mg/dl (70-99) Micro Results: * Blood cultures are pending Assessment & Plan * Mr. Solares is readmitted 07/01/17 for non-healing cellulitis. He was discharged from this facility on 06/27/17, as he developed a rash to the out- patient ABX (Doxy/Augmentin). * Loading dose: 2750mg IV X 1 dose then 1750mg IV every 10 hours. * Last admission this regimen produced good trough levels ( 16.5mcg/ml) * Trough level is ordered for 07/01/17 at 2330 just prior to the 4th dose. Pharmacy will continue to follow and will adjust dose/frequency as necessary. Thank you
[2017-07-02] MEDS: OXYCODONE HCL IR 5 MG TAB (IMMEDIATE RELEASE) PO PRN (05:12)
[2017-07-02] MEDS: LEVOTHYROXINE 25 MCG TAB PO SCH (06:37)
[2017-07-02] MEDS: LEVOTHYROXINE 200 MCG TAB PO SCH (06:38)
--- NOTE | 2017-07-02 07:18 | DIAGNOSTIC IMAGING REPORT ---
LEFT LOWER EXTREMITY VENOUS DOPPLER HISTORY: left lower extremity swelling COMPARISON STUDY: None. FINDINGS: There is normal compressibility, flow, and augmentation within the left lower extremity deep venous system. There is subcutaneous edema and a prominent left inguinal lymph node. IMPRESSION: No DVT within the left lower extremity. Electronically signed by: Tip Avalos M.D. 07/02/2017 7:17 AM Dictated Date/Time: 07/02/2017 7:16 AM
[2017-07-02 08:00] LABS: HEMATOCRIT 33.3 % (42-52); MEAN CELL VOLUME 99.1 fL (80-100); MEAN CORPUSCULAR HEMOGLOBIN 32.1 pg (25-34); MEAN CORPUSCULAR HGB CONC 32.4 g/dl (32-36); MEAN PLATELET VOLUME 9.9 fL (7.4-10.4); PLATELET COUNT 284 K/uL (130-400); RED BLOOD COUNT 3.36 M/uL (4.7-6.1); WHITE BLOOD COUNT 18.92 K/uL (4.8-10.8)
[2017-07-02] MEDS: CYANOCOBALAMIN 500 MCG TAB (VIT B-12) PO SCH (08:01)
[2017-07-02] MEDS: ACETAMINOPHEN 325 MG TAB PO PRN ×2 (08:01→14:56)
[2017-07-02] MEDS: CHOLECALCIFEROL 1000 INTER.UNIT TAB PO SCH (08:01)
[2017-07-02] MEDS: CEROVITE ADV FORMULA TAB PO SCH (08:01)
[2017-07-02] MEDS: ASPIRIN 81 MG ECTAB PO SCH (08:02)
[2017-07-02] MEDS: POTASSIUM CHLORIDE 20 MEQ TABCR PO SCH (08:02)
[2017-07-02 08:38] LABS: BUN/CREATININE RATIO 7.1 (10-20); C-REACTIVE PROTEIN 12.2 mg/dl (0-0.29); CALCIUM 8.3 mg/dl (8.5-10.1); CREATININE 1.1 mg/dl (0.60-1.40); POTASSIUM 3.6 mmol/L (3.5-5.1)
[2017-07-02] MEDS: INSULIN ASPART 100 UNITS/ML 3 ML PEN SC SCH ×4 (09:13→20:29)
[2017-07-02] MEDS: INSULIN GLARGINE SOLOSTAR 100 UNITS/ML 3 ML PEN SC SCH ×2 (09:14→20:34)
--- NOTE | 2017-07-02 10:15 | Medical Consult ---
Consultation Date of Consultation: Jul 02, 2017. Attending Physician: Aneudy Mclain M.D. Reason for Consultation: Cellulitis History of Present Illness 57-year-old male with history of diabetes mellitus, hypertension, obstructive sleep apnea, who was recently hospitalized for left lower extremity cellulitis. Improved on IV antibiotics, blood cultures were negative at that time, and he was discharged home on doxycycline and Augmentin. He has since developed progressively worsening left lower extremity erythema with superficial ulceration of the lower leg, and has developed diffuse erythematous maculopapular rash as well. He was readmitted to the hospital with worsening cellulitis and probable drug eruption, and started on vancomycin and levofloxacin. Cultures are pending. Complaining of significant pain in his left leg, rated 5/10 in intensity currently. Past Medical/Surgical History Medical Problems: (1) Drug reaction Status: Acute (2) Failure of outpatient treatment Status: Acute (3) Hypokalemia Status: Acute (4) Left leg cellulitis Status: Acute Medical Problems: (1) DM type 2 (diabetes mellitus, type 2) (2) Dyslipidemia (3) HTN (hypertension) (4) Hypothyroidism (5) MICAH (obstructive sleep apnea) Surgical Problems: (1) History of left knee replacement Family History FH: CAD (coronary artery disease) FATHER Kidney disease BROTHER Social History Smoking Status: Current Every Day Smoker Alcohol Use: socially Housing Status: lives with family Allergies Coded Allergies: Amoxicillin (Verified Allergy, Mild, generalized rash; secondary to augmentin vs doxy, 07/01/17) diffuse full body rash (minimal pruritis) developed ~36 hours after starting Augmentin + Doxycycline for cellulitis. no respiratory compromise of swelling noted Clavulanic Acid (Verified Allergy, Mild, generalized rash; secondary to augmentin vs doxy, 07/01/17) diffuse full body rash (minimal pruritis) developed ~36 hours after starting Augmentin + Doxycycline for cellulitis. no respiratory compromise of swelling noted Doxycycline (Verified Allergy, Mild, generalized rash; secondary to augmentin vs doxy, 07/01/17) diffuse full body rash (minimal pruritis) developed ~36 hours after starting Augmentin + Doxycycline for cellulitis. no respiratory compromise of swelling noted Current Inpatient Medications Current Inpatient Medications Medications (Trade) Dose Ordered Sig/Noble Route Start Time Stop Time Status Last Admin Dose Admin Acetaminophen (Tylenol Tab) 650 mg Q4H PRN PO 07/01/17 19:15 07/31/17 19:14 07/02/17 08:01 650 MG Aspirin (Ecotrin Tab) 81 mg DAILY PO 07/02/17 08:00 08/01/17 08:59 07/02/17 08:02 81 MG Cholecalciferol (Vitamin D Tab) 1,000 inter.unit DAILY PO 07/02/17 08:00 08/01/17 08:59 07/02/17 08:01 1,000 INTER.UNIT Cyanocobalamin (Vitamin B-12 Tab) 500 mcg DAILY PO 07/02/17 08:00 08/01/17 08:59 07/02/17 08:01 500 MCG Levothyroxine Sodium (Synthroid Tab) 25 mcg DAILYBB PO 07/02/17 06:30 08/01/17 06:29 07/02/17 06:37 25 MCG Levothyroxine Sodium (Synthroid Tab) 200 mcg DAILYBB PO 07/02/17 06:30 08/01/17 06:29 07/02/17 06:38 200 MCG Lisinopril (Zestril Tab) 10 mg QPM PO 07/01/17 21:00 07/31/17 20:59 07/01/17 21:48 10 MG Multivitamins/ Minerals (Multivitamin W/ Minerals Tab) 1 tab DAILY PO 07/02/17 08:00 08/01/17 08:59 07/02/17 08:01 1 TAB Simvastatin (Zocor Tab) 20 mg QPM PO 07/01/17 21:00 07/31/17 20:59 07/01/17 21:48 20 MG Tramadol HCl (Ultram Tab) 100 mg Q6H PRN PO 07/01/17 19:30 07/31/17 19:29 Oxycodone HCl (Roxicodone Immediate Rel Tab) 10 mg Q6H PRN PO 07/01/17 19:30 07/15/17 19:29 07/02/17 05:12 10 MG Insulin Glargine (Lantus Solostar Pen) 12 units BID SC 07/01/17 20:20 07/31/17 20:59 07/02/17 09:14 12 UNITS Insulin Aspart (novoLOG ASPART) SLIDING SCALE G... ACHS SC 07/01/17 21:00 07/31/17 20:59 07/02/17 09:13 3 UNITS Diphenhydramine HCl (Benadryl Cap) 50 mg Q6H PRN PO 07/01/17 19:30 07/31/17 19:29 07/02/17 05:13 50 MG Potassium Chloride (Klor-Con Tab) 20 meq QAM PO 07/02/17 08:00 08/01/17 08:59 07/02/17 08:02 20 MEQ Glucose (Glucose 40% Gel) 15-30 GRAMS 15 GRAMS... UD PRN PO 07/01/17 20:45 07/31/17 20:44 Glucose (Glucose Chew Tab) 4-8 Tablets 4 Tabl... UD PRN PO 07/01/17 20:45 07/31/17 20:44 Dextrose (Dextrose 50% 50ML Syringe) 25-50ML OF 50% DW IV FOR... UD PRN IV 07/01/17 20:45 07/31/17 20:44 Glucagon (Glucagon Inj) 1 mg UD PRN SQ 07/01/17 20:45 07/31/17 20:44 Enoxaparin Sodium (Lovenox Inj) 40 mg HS SQ 07/02/17 21:00 08/01/17 20:59 Levofloxacin 750 mg/Prmx 150 ml @ 100 mls/hr Q24H IV 07/02/17 00:00 07/12/17 00:00 07/02/17 00:40 100 MLS/HR Vancomycin HCl 1750 mg/Sodium Chloride 535 ml @ 200 mls/hr Q10H IV 07/02/17 14:00 07/12/17 13:59 Vancomycin HCl (Consult) 1 ea UD PRN N/A 07/02/17 04:45 08/01/17 04:44 Review of Systems All systems were reviewed and are negative except as per HPI Physical Exam Date Time Temp Pulse Resp B/P (MAP) Pulse Ox O2 Delivery O2 Flow Rate FiO2 07/02/17 07:47 37.8 118 16 101/61 (74) 97 Nasal Cannula 2.0 07/02/17 01:30 Nasal Cannula 2.0 07/02/17 00:19 38.2 112 20 101/60 (74) 92 2.0 07/01/17 20:33 37.5 98 18 115/71 (86) 94 Nasal Cannula 2.0 07/01/17 20:09 85 16 134/76 98 07/01/17 19:00 85 16 110/72 98 Nasal Cannula 2.0 07/01/17 17:44 98 Nasal Cannula 2.0 07/01/17 17:00 90 16 101/57 98 Room Air 07/01/17 16:09 91 07/01/17 15:32 92 20 101/57 98 Nasal Cannula 2.0 07/01/17 15:30 97 Nasal Cannula 2.0 07/01/17 15:30 80 Room Air 07/01/17 14:23 36.9 112 22 120/80 92 Room Air General Appearance: WD/WN, no apparent distress, + obese Head: normocephalic, atraumatic Eyes: normal inspection, EOMI, sclerae normal ENT: normal ENT inspection, hearing grossly normal, pharynx normal Neck: supple, no adenopathy, thyroid normal, trachea midline Respiratory/Chest: chest non-tender, lungs clear, normal breath sounds, no respiratory distress Cardiovascular: regular rate, rhythm, no gallop, no murmur Abdomen/GI: normal bowel sounds, non tender, soft, no organomegaly Back: normal inspection, no CVA tenderness Extremities/Musculoskelatal: normal capillary refill, + inflammation (Left leg) , + swelling (Left leg) Neurologic/Psych: alert, oriented x 3 Skin: normal color, + pertinent finding (Diffuse maculopapular erythematous rash, severe erythema of left lower extremity with superficial blistering and ulceration anterior ferro) Lymphatic: no adenopathy Laboratory Results Date/Time Source Procedure Growth Status 07/01/17 15:10 Blood Blood Culture Pending Received 07/01/17 15:00 Blood Blood Culture Pending Received Last 24 Hours Test 07/01/17 15:03 07/01/17 15:23 07/01/17 20:40 07/02/17 07:06 Bedside Lactic Acid Venous 1.40 mmol/L White Blood Count 20.64 K/uL Red Blood Count 3.49 M/uL Hemoglobin 11.3 g/dL Hematocrit 34.1 % Mean Corpuscular Volume 97.7 fL Mean Corpuscular Hemoglobin 32.4 pg Mean Corpuscular Hemoglobin Concent 33.1 g/dl Platelet Count 306 K/uL Mean Platelet Volume 9.8 fL Neutrophils (%) (Auto) 82.5 % Lymphocytes (%) (Auto) 8.2 % Monocytes (%) (Auto) 5.7 % Eosinophils (%) (Auto) 2.5 % Basophils (%) (Auto) 0.2 % Neutrophils # (Auto) 17.03 K/uL Lymphocytes # (Auto) 1.70 K/uL Monocytes # (Auto) 1.17 K/uL Eosinophils # (Auto) 0.52 K/uL Basophils # (Auto) 0.04 K/uL RDW Standard Deviation 46.1 fL RDW Coefficient of Variation 13.0 % Immature Granulocyte % (Auto) 0.9 % Immature Granulocyte # (Auto) 0.18 K/uL Prothrombin Time 11.6 SECONDS Prothromb Time International Ratio 1.1 Activated Partial Thromboplast Time 29.4 SECONDS Partial Thromboplastin Ratio 1.1 Sodium Level 143 mmol/L Potassium Level 3.1 mmol/L Chloride Level 101 mmol/L Carbon Dioxide Level 35 mmol/L Anion Gap 7.0 mmol/L Blood Urea Nitrogen 6 mg/dl Creatinine 0.82 mg/dl Est Creatinine Clear Calc Drug Dose 132.2 ml/min Estimated GFR () 113.8 Estimated GFR (Non- 98.2 BUN/Creatinine Ratio 7.7 Random Glucose 118 mg/dl Calcium Level 8.6 mg/dl Total Bilirubin 0.4 mg/dl Aspartate Amino Transf (AST/SGOT) 12 U/L Alanine Aminotransferase (ALT/SGPT) 17 U/L Alkaline Phosphatase 69 U/L Total Protein 6.4 gm/dl Albumin 2.1 gm/dl Globulin 4.3 gm/dl Albumin/Globulin Ratio 0.5 Bedside Glucose 104 mg/dl 105 mg/dl Test 07/02/17 07:41 White Blood Count 18.92 K/uL Red Blood Count 3.36 M/uL Hemoglobin 10.8 g/dL Hematocrit 33.3 % Mean Corpuscular Volume 99.1 fL Mean Corpuscular Hemoglobin 32.1 pg Mean Corpuscular Hemoglobin Concent 32.4 g/dl RDW Standard Deviation 47.4 fL RDW Coefficient of Variation 13.1 % Platelet Count 284 K/uL Mean Platelet Volume 9.9 fL Nucleated RBC Absolute Count (auto) 0.02 K/uL Nucleated Red Blood Cells % 0.1 % Erythrocyte Sedimentation Rate 12 mm/hr Sodium Level 141 mmol/L Potassium Level 3.6 mmol/L Chloride Level 102 mmol/L Carbon Dioxide Level 35 mmol/L Anion Gap 4.0 mmol/L Blood Urea Nitrogen 8 mg/dl Creatinine 1.10 mg/dl Est Creatinine Clear Calc Drug Dose 98.5 ml/min Estimated GFR () 85.9 Estimated GFR (Non- 74.1 BUN/Creatinine Ratio 7.1 Random Glucose 95 mg/dl Calcium Level 8.3 mg/dl C-Reactive Protein 12.20 mg/dl [~ rep ct add3]] LEFT LOWER EXTREMITY VENOUS DOPPLER HISTORY: left lower extremity swelling COMPARISON STUDY: None. FINDINGS: There is normal compressibility, flow, and augmentation within the left lower extremity deep venous system. There is subcutaneous edema and a prominent left inguinal lymph node. IMPRESSION: No DVT within the left lower extremity. Electronically signed by: Tip Avalos M.D. 07/02/2017 7:17 AM Dictated Date/Time: 07/02/2017 7:16 AM The status of this report is Signed. Draft = Not yet reviewed Assessment & Plan Recurrent left lower extremity cellulitis as well as significant drug allergy, likely to Augmentin. Would continue patient on vancomycin and levofloxacin pending further culture results. Would consider further imaging of left lower leg with either MRI or CT scan to assess for deeper infection. Will follow.
[2017-07-02] MEDS ORDERED: POTASSIUM CHLORIDE 20 MEQ TABCR PO STA (11:17)
[2017-07-02] MEDS ORDERED: OPTIRAY 320 IV PRN (12:00)
[2017-07-02] MEDS ORDERED: VANCOMYCIN INJ 1,750 MG in SODIUM CHLORIDE 0.9% 500ML 500 ML IV SCH (14:00)
--- NOTE | 2017-07-02 15:31 | Pharmacy Progress Note ---
Pharmacy Antibiotic Prog Note Date of Service Jul 02, 2017. Subjective The patient is currently receiving 1750 mg IV every 10 hours. Objective Height (Feet): 5 Height (Inches): 6.00 Weight (Kilograms): 139.400 Lab Results (24hrs): Test 07/02/17 07:06 07/02/17 07:41 07/02/17 11:50 Bedside Glucose 105 mg/dl (70-99) 85 mg/dl (70-99) White Blood Count 18.92 K/uL (4.8-10.8) Red Blood Count 3.36 M/uL (4.7-6.1) Hemoglobin 10.8 g/dL (14.0-18.0) Hematocrit 33.3 % (42-52) Mean Corpuscular Volume 99.1 fL (80-100) Mean Corpuscular Hemoglobin 32.1 pg (25-34) Mean Corpuscular Hemoglobin Concent 32.4 g/dl (32-36) RDW Standard Deviation 47.4 fL (36.4-46.3) RDW Coefficient of Variation 13.1 % (11.5-14.5) Platelet Count 284 K/uL (130-400) Mean Platelet Volume 9.9 fL (7.4-10.4) Nucleated RBC Absolute Count (auto) 0.02 K/uL (0-0) Nucleated Red Blood Cells % 0.1 % Erythrocyte Sedimentation Rate 12 mm/hr (0-14) Sodium Level 141 mmol/L (136-145) Potassium Level 3.6 mmol/L (3.5-5.1) Chloride Level 102 mmol/L (98-107) Carbon Dioxide Level 35 mmol/L (21-32) Anion Gap 4.0 mmol/L (3-11) Blood Urea Nitrogen 8 mg/dl (7-18) Creatinine 1.10 mg/dl (0.60-1.40) Est Creatinine Clear Calc Drug Dose 98.5 ml/min Estimated GFR () 85.9 Estimated GFR (Non- 74.1 BUN/Creatinine Ratio 7.1 (10-20) Random Glucose 95 mg/dl (70-99) Calcium Level 8.3 mg/dl (8.5-10.1) C-Reactive Protein 12.20 mg/dl (0-0.29) Assessment & Plan DUE TO RISE IN SCR (0.8 TO 1.1) WILL INCREASE INTERVAL TO 1750MG Q14 AND RETIMED TROUGH FOR 07/03 @ 0444. Pharmacy will continue to follow and will adjust dose/frequency as necessary. Thank you
--- NOTE | 2017-07-02 15:33 | DIAGNOSTIC IMAGING REPORT ---
CT SCAN OF THE LEFT LOWER EXTREMITY WITH IV CONTRAST CLINICAL HISTORY: Left leg cellulitis. Erythema and drainage. COMPARISON STUDY: Radiographs of the left knee dated 06/24/2017. CT scan of left knee dated 06/23/2017. TECHNIQUE: Following the IV administration of 93 cc of Optiray 320, CT scan of the left lower extremity is performed from the distal femur to the foot. Images are reviewed in the axial, sagittal, and coronal planes. IV contrast was administered without complication. A dose lowering technique was utilized adhering to the principles of ALARA. The examination is degraded by streak artifact from a left knee arthroplasty as well as by motion artifact. CT DOSE: 1090.69 mGy.cm FINDINGS: The skeletal structures are osteopenic. No fracture is seen. A left knee arthroplasty is in place. Streak artifact from the arthroplasty degrades the examination. No obvious periprosthetic lucency is identified. No bony erosion or periostitis is seen. There is diffuse subcutaneous and deep soft tissue identified throughout the imaged left lower extremity. No organized fluid collection is seen to suggest abscess. No joint effusion is identified. The regional musculature is atrophic. The popliteal and calf vessels appear patent. Calcified phleboliths are present in the calf. The Achilles tendon is intact as visualized. IMPRESSION: 1. No acute bony abnormality is seen in the visualized left lower extremity. 2. A left knee arthroplasty is in place. There is no CT evidence of hardware complication. 3. Diffuse subcutaneous soft tissue edema suggests cellulitis. No organized fluid collection is seen to indicate abscess. Dictated: 07/02/2017 3:04 PM Transcribed: 07/02/2017 3:33 PM [email or web address] Electronically signed by: Shahbaz Johnson M.D. 07/02/2017 3:35 PM Dictated Date/Time: 07/02/2017 3:04 PM
--- NOTE | 2017-07-02 17:52 | Progress Note ---
Internal Med Progress Note Date of Service: Jul 02, 2017. Provider Documentation: SUBJECTIVE: patient seen at bedside without shirt on with diffuse red rash on chest and lower extremities. patient denies pruritus. denies pain of lower extremity but reports left leg and knee has been more swollen compared to prior hospital admission OBJECTIVE: Exam: General Appearance: no apparent distress, + obese Head: normocephalic, atraumatic Eyes: normal inspection, EOMI, sclerae normal ENT: hearing grossly normal, pharynx normal Neck: supple, no adenopathy, thyroid normal, no JVD, trachea midline Respiratory/Chest: lungs clear, no respiratory distress, no accessory muscle use Cardiovascular: regular rate, rhythm, no gallop, no JVD, no murmur, lower extremity edema, L > R Abdomen/GI: normal bowel sounds, non tender, soft, no organomegaly, no pulsatile mass Extremities: + pedal edema, swelling and extensive erythema LLE, bullous lesions with shallow ulcerations Neurologic: no motor/sensory deficits, alert, normal mood/affect, oriented x 3 Skin: warm/dry, extensive maculopapular rash trunk and extremities ASSESSMENT & PLAN: 57-year-old male with history of diabetes mellitus, hypertension, obstructive sleep apnea, who was recently hospitalized for left lower extremity cellulitis. Improved on IV antibiotics, blood cultures were negative at that time, and he was discharged home on doxycycline and Augmentin. He has since developed progressively worsening left lower extremity erythema with superficial ulceration of the lower leg, and has developed diffuse erythematous maculopapular rash as well. He was readmitted to the hospital with worsening cellulitis and probable drug eruption, and started on vancomycin and levofloxacin CT SCAN OF THE LEFT LOWER EXTREMITY WITH IV CONTRAST 1. No acute bony abnormality is seen in the visualized left lower extremity. 2. A left knee arthroplasty is in place. There is no CT evidence of hardware complication. 3. Diffuse subcutaneous soft tissue edema suggests cellulitis. No organized fluid collection is seen to indicate abscess. As per ID consultation: continue patient on vancomycin and levofloxacin pending further culture results from 07/01/17 for the CELLULITIS LEFT LOWER EXTREMITY LLE SWELLING no DVT on lower extremity ultrasound RASH Extensive maculopapular rash on trunk and extremities. Most likely drug-eruption secondary to amoxicillin, but cannot exclude doxycycline allergy. Try to avoid steroids if possible due to cellulitis. Diphenhydramine PRN. HYPERTENSION Continue lisinopril HYPOKALEMIA resolving after potassium repletion, continue to monitor DM TYPE 2 Hold metformin during hospital stay. Lantus + NovoLog per protocol. HYPOTHYROIDISM Continue levothyroxine. VTE PROPHYLAXIS SQ enoxaparin RESUSCITATION STATUS Full code . Vital Signs: Date Time Temp Pulse Resp B/P (MAP) Pulse Ox O2 Delivery O2 Flow Rate FiO2 07/02/17 16:00 91 Nasal Cannula 2.0 07/02/17 15:19 37.0 97 19 120/67 (84) 91 Nasal Cannula 2.0 07/02/17 08:30 97 Nasal Cannula 2.0 07/02/17 07:47 37.8 118 16 101/61 (74) 97 Nasal Cannula 2.0 07/02/17 01:30 Nasal Cannula 2.0 07/02/17 00:19 38.2 112 20 101/60 (74) 92 2.0 07/01/17 20:33 37.5 98 18 115/71 (86) 94 Nasal Cannula 2.0 07/01/17 20:09 85 16 134/76 98 07/01/17 19:00 85 16 110/72 98 Nasal Cannula 2.0 Lab Results: Results Past 24 Hours Test 07/01/17 20:40 07/02/17 07:06 07/02/17 07:41 07/02/17 11:50 Range/Units Bedside Glucose 104 105 85 70-99 mg/dl White Blood Count 18.92 4.8-10.8 K/uL Red Blood Count 3.36 4.7-6.1 M/uL Hemoglobin 10.8 14.0-18.0 g/dL Hematocrit 33.3 42-52 % Mean Corpuscular Volume 99.1 80-100 fL Mean Corpuscular Hemoglobin 32.1 25-34 pg Mean Corpuscular Hemoglobin Concent 32.4 32-36 g/dl RDW Standard Deviation 47.4 36.4-46.3 fL RDW Coefficient of Variation 13.1 11.5-14.5 % Platelet Count 284 130-400 K/uL Mean Platelet Volume 9.9 7.4-10.4 fL Nucleated RBC Absolute Count (auto) 0.02 0-0 K/uL Nucleated Red Blood Cells % 0.1 % Erythrocyte Sedimentation Rate 12 0-14 mm/hr Sodium Level 141 136-145 mmol/L Potassium Level 3.6 3.5-5.1 mmol/L Chloride Level 102 98-107 mmol/L Carbon Dioxide Level 35 21-32 mmol/L Anion Gap 4.0 3-11 mmol/L Blood Urea Nitrogen 8 7-18 mg/dl Creatinine 1.10 0.60-1.40 mg/dl Est Creatinine Clear Calc Drug Dose 98.5 ml/min Estimated GFR () 85.9 Estimated GFR (Non- 74.1 BUN/Creatinine Ratio 7.1 10-20 Random Glucose 95 70-99 mg/dl Calcium Level 8.3 8.5-10.1 mg/dl C-Reactive Protein 12.20 0-0.29 mg/dl Test 07/02/17 16:43 Range/Units Bedside Glucose 107 70-99 mg/dl
[2017-07-02] MEDS: SIMVASTATIN 20 MG TAB PO SCH (20:30)
[2017-07-02] MEDS: LISINOPRIL 10 MG TAB PO SCH (20:31)
[2017-07-02] MEDS: ENOXAPARIN 40 MG/0.4 ML SYR SQ SCH (20:31)
[2017-07-02] MEDS ORDERED: VANCOMYCIN TROUGH SCH (23:30)
[2017-07-03] VITALS (8 sets, daily range): BP systolic 72–110; BP diastolic 47–66; PULSE 91–100; TEMP 36.2–37.9; O2SAT 93–96
[2017-07-03] MEDS: LEVOFLOXACIN / D5W 750 MG in PREMIXED IN D5W 150 ML IV SCH (00:14)
[2017-07-03] MEDS: TRAMADOL HCL 50 MG TAB PO PRN ×3 (00:19→17:14)
[2017-07-03] MEDS ORDERED: VANCOMYCIN TROUGH ONE (04:44)
[2017-07-03] MEDS ORDERED: VANCOMYCIN INJ 1,750 MG in SODIUM CHLORIDE 0.9% 500ML 500 ML IV SCH (05:00)
[2017-07-03] MEDS: LEVOTHYROXINE 200 MCG TAB PO SCH (05:30)
[2017-07-03] MEDS: LEVOTHYROXINE 25 MCG TAB PO SCH (05:30)
[2017-07-03 06:48] LABS: BASO % 0.2 %; BASO ABS # 0.03 K/uL (0-0.2); COMPLETE YES; EOS % 2.4 %; HEMATOCRIT 33.4 % (42-52); IG% 0.6 %; LYMPH % 8.4 %; LYMPH ABS # 1.67 K/uL (1.2-3.4); MEAN CELL VOLUME 101.2 fL (80-100); MEAN CORPUSCULAR HEMOGLOBIN 31.8 pg (25-34); MEAN CORPUSCULAR HGB CONC 31.4 g/dl (32-36); MEAN PLATELET VOLUME 9.5 fL (7.4-10.4); MONO % 5.2 %; NEUT % 83.2 %; PLATELET COUNT 285 K/uL (130-400); WHITE BLOOD COUNT 19.88 K/uL (4.8-10.8)
[2017-07-03 07:25] LABS: ALB/GLOB RATIO 0.5 (0.9-2); BUN/CREATININE RATIO 8.3 (10-20); CALCIUM 7.8 mg/dl (8.5-10.1); CREATININE 1.8 mg/dl (0.60-1.40); MAGNESIUM 1.7 mg/dl (1.8-2.4); POTASSIUM 4.2 mmol/L (3.5-5.1)
[2017-07-03] MEDS ORDERED: SODIUM CHLORIDE 0.9% 1000ML 1,000 ML IV STA (07:38)
--- NOTE | 2017-07-03 08:55 | Pharmacy Progress Note ---
Pharmacy Abx Dose Progress Nt Date of Service Jul 03, 2017. Pharmacy Dosing Scope The patient is currently receiving the following antimicrobial agents per Pharmacy consult: vancomcyin 1750 mg IV every 14 hours Objective Height (Feet): 5 Height (Inches): 6.00 Weight (Kilograms): 139.400 Vital Signs (Past 12Hrs) Vital Signs Past 12 Hours Date Time Temp Pulse Resp B/P (MAP) Pulse Ox O2 Delivery O2 Flow Rate FiO2 07/03/17 07:44 37.2 100 20 78/48 (58) 96 Nasal Cannula 2.0 07/03/17 00:47 Nasal Cannula 2.0 07/02/17 23:56 37.7 99 20 124/72 (89) 100 2.0 07/02/17 21:30 96 Nasal Cannula 2.0 07/02/17 21:05 37.9 99 20 108/67 (81) 96 Nasal Cannula 2.0 Lab Results (24Hrs) Laboratory Tests (24 Hours) Test 07/03/17 06:30 White Blood Count 19.88 K/uL (4.8-10.8) H Red Blood Count 3.30 M/uL (4.7-6.1) L Hemoglobin 10.5 g/dL (14.0-18.0) L Hematocrit 33.4 % (42-52) L Mean Corpuscular Volume 101.2 fL (80-100) H Mean Corpuscular Hemoglobin 31.8 pg (25-34) Mean Corpuscular Hemoglobin Concent 31.4 g/dl (32-36) L Platelet Count 285 K/uL (130-400) Mean Platelet Volume 9.5 fL (7.4-10.4) Neutrophils (%) (Auto) 83.2 % Lymphocytes (%) (Auto) 8.4 % Monocytes (%) (Auto) 5.2 % Eosinophils (%) (Auto) 2.4 % Basophils (%) (Auto) 0.2 % Neutrophils # (Auto) 16.56 K/uL (1.4-6.5) H Lymphocytes # (Auto) 1.67 K/uL (1.2-3.4) Monocytes # (Auto) 1.04 K/uL (0.11-0.59) H Eosinophils # (Auto) 0.47 K/uL (0-0.5) Basophils # (Auto) 0.03 K/uL (0-0.2) Micro Results Date/Time Source Procedure Growth Status 07/01/17 15:10 Blood Blood Culture - Preliminary NO GROWTH TO DATE. Resulted 07/01/17 15:00 Blood Blood Culture - Preliminary NO GROWTH TO DATE. Resulted Risk Factors for Resistance * Antimicrobial use within the last 90 days Assessment & Plan Assessment 57 year old male receiving vancomycin and levofloxacin for treatment of cellulitis Day # 3 of antimicrobial therapy Plan Vancomycin level this AM 17.3 which is therapeutic and dose was given at 0637, however SCr has increased from 1.1 --> 1.8. Will hold vancomycin and check random level in AM. Pharmacy will continue to follow and will adjust dose/frequency as necessary. Thank you.
[2017-07-03] MEDS: INSULIN ASPART 100 UNITS/ML 3 ML PEN SC SCH ×4 (09:35→20:42)
[2017-07-03] MEDS: INSULIN GLARGINE SOLOSTAR 100 UNITS/ML 3 ML PEN SC SCH ×2 (09:36→20:43)
[2017-07-03] MEDS: ASPIRIN 81 MG ECTAB PO SCH (09:39)
[2017-07-03] MEDS: POTASSIUM CHLORIDE 20 MEQ TABCR PO SCH (09:40)
[2017-07-03] MEDS: CYANOCOBALAMIN 500 MCG TAB (VIT B-12) PO SCH (09:43)
[2017-07-03] MEDS: CEROVITE ADV FORMULA TAB PO SCH (09:43)
[2017-07-03] MEDS: CHOLECALCIFEROL 1000 INTER.UNIT TAB PO SCH (09:44)
--- NOTE | 2017-07-03 14:30 | Progress Note ---
Internal Med Progress Note Date of Service: Jul 03, 2017. Provider Documentation: SUBJECTIVE: patient seen at bedside without shirt on with diffuse red rash on chest and extremities. patient has had blood pressure readings less than systolic of 90 however has been asymptomatic. denies lightheadedness. is at his normal mental baseline. denies pain OBJECTIVE: General Appearance: no apparent distress, + obese Head: normocephalic, atraumatic Eyes: normal inspection, EOMI, sclerae normal ENT: hearing grossly normal, pharynx normal Neck: supple, no adenopathy, no JVD, trachea midline Respiratory/Chest: lungs clear, no respiratory distress, no accessory muscle use Cardiovascular: regular rate, rhythm, no gallop, no JVD, no murmur, lower extremity edema, L > R Abdomen/GI: normal bowel sounds, non tender, soft, no organomegaly, no pulsatile mass Extremities: + pedal edema, swelling and extensive erythema LLE, bullous lesions with shallow ulcerations on LLE which is now in dressing Neurologic: no motor/sensory deficits, alert, normal mood/affect, oriented x 3 Skin: warm/dry, diffuse maculopapular rash of trunk and extremities ASSESSMENT & PLAN: 57-year-old male with history of diabetes mellitus, hypertension, obstructive sleep apnea, who was recently hospitalized for left lower extremity cellulitis. Improved on IV antibiotics, blood cultures were negative at that time, and he was discharged home on doxycycline and Augmentin. He has since developed progressively worsening left lower extremity erythema with superficial ulceration of the lower leg, and has developed diffuse erythematous maculopapular rash as well. He was readmitted to the hospital with worsening cellulitis and probable drug eruption, and started on vancomycin and levofloxacin for LOWER LEFT LEG CELLULITIS CT SCAN OF THE LEFT LOWER EXTREMITY WITH IV CONTRAST 1. No acute bony abnormality is seen in the visualized left lower extremity. 2. A left knee arthroplasty is in place. There is no CT evidence of hardware complication. 3. Diffuse subcutaneous soft tissue edema suggests cellulitis. No organized fluid collection is seen to indicate abscess. Likely because of IV contrast and IV antibiotics, patient developing Acute Kidney INJURY with creatinine rising to 1.8 today Patient being transitioned to daptomycin of 4 mg per kg every 48 hours instead of vancomycin to avoid vancomycin associated kidney injury and to continue levofloxacin PICC requested to be placed due to inadequate IV access LLE SWELLING no DVT on lower extremity ultrasound RASH Extensive maculopapular rash on trunk and extremities. Most likely drug-eruption secondary to amoxicillin, but cannot exclude doxycycline allergy. Try to avoid steroids if possible due to cellulitis. Diphenhydramine PRN. Blood pressure readings on right arm appears to underestimate blood pressure, manually check blood pressure if electronic cuff shows systolic blood pressure less than 90, when electronic cuff readings less than systolic of 90, patient has been asymptomatic/alert/oriented/speaking in full sentences/denies lightheadedness. Continue with IV hydration. Stop home dose lisinopril HYPOKALEMIA: resolved after potassium repletion, continue to monitor DM TYPE 2 Hold metformin during hospital stay, Lantus + NovoLog per protocol. HYPOTHYROIDISM Continue levothyroxine. VTE PROPHYLAXIS SQ enoxaparin RESUSCITATION STATUS Full code Vital Signs: Date Time Temp Pulse Resp B/P (MAP) Pulse Ox O2 Delivery O2 Flow Rate FiO2 07/03/17 12:40 37.6 102/66 (78) 07/03/17 11:40 98 78/48 (58) 07/03/17 11:37 37.6 91 20 94 Nasal Cannula 2.0 07/03/17 10:30 36.2 100 72/47 (55) 96 Nasal Cannula 2.0 07/03/17 10:20 Nasal Cannula 2.0 07/03/17 07:44 37.2 100 20 78/48 (58) 96 Nasal Cannula 2.0 07/03/17 00:47 Nasal Cannula 2.0 07/02/17 23:56 37.7 99 20 124/72 (89) 100 2.0 07/02/17 21:30 96 Nasal Cannula 2.0 07/02/17 21:05 37.9 99 20 108/67 (81) 96 Nasal Cannula 2.0 07/02/17 16:00 91 Nasal Cannula 2.0 07/02/17 15:19 37.0 97 19 120/67 (84) 91 Nasal Cannula 2.0 Lab Results: Results Past 24 Hours Test 07/02/17 16:43 07/02/17 20:07 07/03/17 06:30 07/03/17 07:19 Range/Units Bedside Glucose 107 101 87 70-99 mg/dl White Blood Count 19.88 4.8-10.8 K/uL Red Blood Count 3.30 4.7-6.1 M/uL Hemoglobin 10.5 14.0-18.0 g/dL Hematocrit 33.4 42-52 % Mean Corpuscular Volume 101.2 80-100 fL Mean Corpuscular Hemoglobin 31.8 25-34 pg Mean Corpuscular Hemoglobin Concent 31.4 32-36 g/dl Platelet Count 285 130-400 K/uL Mean Platelet Volume 9.5 7.4-10.4 fL Neutrophils (%) (Auto) 83.2 % Lymphocytes (%) (Auto) 8.4 % Monocytes (%) (Auto) 5.2 % Eosinophils (%) (Auto) 2.4 % Basophils (%) (Auto) 0.2 % Neutrophils # (Auto) 16.56 1.4-6.5 K/uL Lymphocytes # (Auto) 1.67 1.2-3.4 K/uL Monocytes # (Auto) 1.04 0.11-0.59 K/uL Eosinophils # (Auto) 0.47 0-0.5 K/uL Basophils # (Auto) 0.03 0-0.2 K/uL RDW Standard Deviation 48.2 36.4-46.3 fL RDW Coefficient of Variation 13.1 11.5-14.5 % Immature Granulocyte % (Auto) 0.6 % Immature Granulocyte # (Auto) 0.11 0.00-0.02 K/uL Sodium Level 141 136-145 mmol/L Potassium Level 4.2 3.5-5.1 mmol/L Chloride Level 103 98-107 mmol/L Carbon Dioxide Level 33 21-32 mmol/L Anion Gap 5.0 3-11 mmol/L Blood Urea Nitrogen 15 7-18 mg/dl Creatinine 1.80 0.60-1.40 mg/dl Est Creatinine Clear Calc Drug Dose 60.2 ml/min Estimated GFR () 47.4 Estimated GFR (Non- 40.9 BUN/Creatinine Ratio 8.3 10-20 Random Glucose 85 70-99 mg/dl Calcium Level 7.8 8.5-10.1 mg/dl Magnesium Level 1.7 1.8-2.4 mg/dl Total Bilirubin 0.4 0.2-1 mg/dl Aspartate Amino Transf (AST/SGOT) 11 15-37 U/L Alanine Aminotransferase (ALT/SGPT) 13 12-78 U/L Alkaline Phosphatase 53 45-117 U/L Total Protein 6.0 6.4-8.2 gm/dl Albumin 1.9 3.4-5.0 gm/dl Globulin 4.1 2.5-4.0 gm/dl Albumin/Globulin Ratio 0.5 0.9-2 Vancomycin Level Trough 17.3 SEE COMMENT mcg/ml Test 07/03/17 11:48 Range/Units Bedside Glucose 112 70-99 mg/dl
--- NOTE | 2017-07-03 14:41 | Infectious Disease Progress Nt ---
Progress Note Date of Service Jul 03, 2017. Subjective Pt evaluation today including: conversation w/ patient, physical exam, chart review, lab review, review of studies, conversation w/ employment consultant, review of inpatient medication list Events reviewed. Rising creatinine, as discussed vancomycin stopped and daptomycin substituted. No fever. Rash slightly better. CT of leg without evidence of deep infection. All Other Systems: Reviewed and Negative Medications Current Inpatient Medications Medications (Trade) Dose Ordered Sig/Noble Route Start Time Stop Time Status Last Admin Dose Admin Acetaminophen (Tylenol Tab) 650 mg Q4H PRN PO 07/01/17 19:15 07/31/17 19:14 07/02/17 14:56 650 MG Aspirin (Ecotrin Tab) 81 mg DAILY PO 07/02/17 08:00 08/01/17 08:59 07/03/17 09:39 81 MG Cholecalciferol (Vitamin D Tab) 1,000 inter.unit DAILY PO 07/02/17 08:00 08/01/17 08:59 07/03/17 09:44 1,000 INTER.UNIT Cyanocobalamin (Vitamin B-12 Tab) 500 mcg DAILY PO 07/02/17 08:00 08/01/17 08:59 07/03/17 09:43 500 MCG Levothyroxine Sodium (Synthroid Tab) 25 mcg DAILYBB PO 07/02/17 06:30 08/01/17 06:29 07/03/17 05:30 25 MCG Levothyroxine Sodium (Synthroid Tab) 200 mcg DAILYBB PO 07/02/17 06:30 08/01/17 06:29 07/03/17 05:30 200 MCG Lisinopril (Zestril Tab) 10 mg QPM PO 07/01/17 21:00 07/31/17 20:59 Future Hold 07/02/17 20:31 10 MG Multivitamins/ Minerals (Multivitamin W/ Minerals Tab) 1 tab DAILY PO 07/02/17 08:00 08/01/17 08:59 07/03/17 09:43 1 TAB Simvastatin (Zocor Tab) 20 mg QPM PO 07/01/17 21:00 07/31/17 20:59 07/02/17 20:30 20 MG Tramadol HCl (Ultram Tab) 100 mg Q6H PRN PO 07/01/17 19:30 07/31/17 19:29 07/03/17 06:39 100 MG Oxycodone HCl (Roxicodone Immediate Rel Tab) 10 mg Q6H PRN PO 07/01/17 19:30 07/15/17 19:29 07/02/17 05:12 10 MG Insulin Glargine (Lantus Solostar Pen) 12 units BID SC 07/01/17 20:20 07/31/17 20:59 07/03/17 09:36 12 UNITS Insulin Aspart (novoLOG ASPART) SLIDING SCALE G... ACHS SC 07/01/17 21:00 07/31/17 20:59 07/03/17 09:35 2 UNITS Diphenhydramine HCl (Benadryl Cap) 50 mg Q6H PRN PO 07/01/17 19:30 07/31/17 19:29 07/03/17 06:39 50 MG Potassium Chloride (Klor-Con Tab) 20 meq QAM PO 07/02/17 08:00 08/01/17 08:59 07/03/17 09:40 20 MEQ Glucose (Glucose 40% Gel) 15-30 GRAMS 15 GRAMS... UD PRN PO 07/01/17 20:45 07/31/17 20:44 Glucose (Glucose Chew Tab) 4-8 Tablets 4 Tabl... UD PRN PO 07/01/17 20:45 07/31/17 20:44 Dextrose (Dextrose 50% 50ML Syringe) 25-50ML OF 50% DW IV FOR... UD PRN IV 07/01/17 20:45 07/31/17 20:44 Glucagon (Glucagon Inj) 1 mg UD PRN SQ 07/01/17 20:45 07/31/17 20:44 Enoxaparin Sodium (Lovenox Inj) 40 mg HS SQ 07/02/17 21:00 08/01/17 20:59 07/02/17 20:31 40 MG Levofloxacin 750 mg/Prmx 150 ml @ 100 mls/hr Q24H IV 07/02/17 00:00 07/12/17 00:00 07/03/17 00:14 100 MLS/HR Ioversol (Optiray 320) 100 ml UD PRN IV 07/02/17 12:00 07/06/17 11:59 Daptomycin 550 mg/ Sodium Chloride 61 ml @ 100 mls/hr Q48H IV 07/03/17 14:00 07/13/17 13:59 Objective Vital Signs Date Time Temp Pulse Resp B/P (MAP) Pulse Ox O2 Delivery O2 Flow Rate FiO2 07/03/17 12:40 37.6 102/66 (78) 07/03/17 11:40 98 78/48 (58) 07/03/17 11:37 37.6 91 20 94 Nasal Cannula 2.0 07/03/17 10:30 36.2 100 72/47 (55) 96 Nasal Cannula 2.0 07/03/17 10:20 Nasal Cannula 2.0 07/03/17 07:44 37.2 100 20 78/48 (58) 96 Nasal Cannula 2.0 07/03/17 00:47 Nasal Cannula 2.0 07/02/17 23:56 37.7 99 20 124/72 (89) 100 2.0 07/02/17 21:30 96 Nasal Cannula 2.0 07/02/17 21:05 37.9 99 20 108/67 (81) 96 Nasal Cannula 2.0 07/02/17 16:00 91 Nasal Cannula 2.0 07/02/17 15:19 37.0 97 19 120/67 (84) 91 Nasal Cannula 2.0 Physical Exam General Appearance: WD/WN, no apparent distress Eyes: normal inspection, sclerae normal ENT: normal ENT inspection, pharynx normal Neck: supple, no adenopathy, trachea midline Respiratory/Chest: lungs clear, normal breath sounds, no respiratory distress Cardiovascular: regular rate, rhythm, no gallop, no murmur Abdomen: normal bowel sounds, non tender, soft, no organomegaly Extremities: + inflammation, + swelling Neurologic/Psychiatric: alert, oriented x 3 Skin: normal color, + rash Lymphatic: no adenopathy Laboratory Results Last 24 Hours Test 07/02/17 16:43 07/02/17 20:07 07/03/17 06:30 07/03/17 07:19 Bedside Glucose 107 mg/dl 101 mg/dl 87 mg/dl White Blood Count 19.88 K/uL Red Blood Count 3.30 M/uL Hemoglobin 10.5 g/dL Hematocrit 33.4 % Mean Corpuscular Volume 101.2 fL Mean Corpuscular Hemoglobin 31.8 pg Mean Corpuscular Hemoglobin Concent 31.4 g/dl Platelet Count 285 K/uL Mean Platelet Volume 9.5 fL Neutrophils (%) (Auto) 83.2 % Lymphocytes (%) (Auto) 8.4 % Monocytes (%) (Auto) 5.2 % Eosinophils (%) (Auto) 2.4 % Basophils (%) (Auto) 0.2 % Neutrophils # (Auto) 16.56 K/uL Lymphocytes # (Auto) 1.67 K/uL Monocytes # (Auto) 1.04 K/uL Eosinophils # (Auto) 0.47 K/uL Basophils # (Auto) 0.03 K/uL RDW Standard Deviation 48.2 fL RDW Coefficient of Variation 13.1 % Immature Granulocyte % (Auto) 0.6 % Immature Granulocyte # (Auto) 0.11 K/uL Sodium Level 141 mmol/L Potassium Level 4.2 mmol/L Chloride Level 103 mmol/L Carbon Dioxide Level 33 mmol/L Anion Gap 5.0 mmol/L Blood Urea Nitrogen 15 mg/dl Creatinine 1.80 mg/dl Est Creatinine Clear Calc Drug Dose 60.2 ml/min Estimated GFR () 47.4 Estimated GFR (Non- 40.9 BUN/Creatinine Ratio 8.3 Random Glucose 85 mg/dl Calcium Level 7.8 mg/dl Magnesium Level 1.7 mg/dl Total Bilirubin 0.4 mg/dl Aspartate Amino Transf (AST/SGOT) 11 U/L Alanine Aminotransferase (ALT/SGPT) 13 U/L Alkaline Phosphatase 53 U/L Total Protein 6.0 gm/dl Albumin 1.9 gm/dl Globulin 4.1 gm/dl Albumin/Globulin Ratio 0.5 Vancomycin Level Trough 17.3 mcg/ml Test 07/03/17 11:48 Bedside Glucose 112 mg/dl Assessment and Plan Recurrent left lower extremity cellulitis as well as significant drug allergy, likely to Augmentin. Would continue patient on daptomycin and levofloxacin pending further culture results. Will follow.
[2017-07-03] MEDS: DAPTOmycin IV 550 MG in SODIUM CHLORIDE 0.9% 50ML 50 ML IV SCH (17:09)
[2017-07-03] MEDS: ENOXAPARIN 40 MG/0.4 ML SYR SQ SCH (20:42)
[2017-07-03] MEDS: SIMVASTATIN 20 MG TAB PO SCH (20:42)
[2017-07-04] VITALS: O2SAT 93
[2017-07-04] MEDS: LEVOFLOXACIN / D5W 750 MG in PREMIXED IN D5W 150 ML IV SCH ×2 (00:09→23:54)
[2017-07-04] MEDS: TRAMADOL HCL 50 MG TAB PO PRN ×3 (00:10→23:46)
[2017-07-04] MEDS: LEVOTHYROXINE 25 MCG TAB PO SCH (05:56)
[2017-07-04] MEDS: LEVOTHYROXINE 200 MCG TAB PO SCH (05:56)
[2017-07-04 06:05] LABS: BASO % 0.1 %; BASO ABS # 0.02 K/uL (0-0.2); COMPLETE YES; EOS % 3.1 %; HEMATOCRIT 31.4 % (42-52); IG% 0.8 %; LYMPH % 9.3 %; LYMPH ABS # 1.83 K/uL (1.2-3.4); MEAN CELL VOLUME 99.7 fL (80-100); MEAN CORPUSCULAR HEMOGLOBIN 32.1 pg (25-34); MEAN CORPUSCULAR HGB CONC 32.2 g/dl (32-36); MEAN PLATELET VOLUME 9.9 fL (7.4-10.4); NEUT % 80.7 %; PLATELET COUNT 292 K/uL (130-400); RED BLOOD COUNT 3.15 M/uL (4.7-6.1); WHITE BLOOD COUNT 19.58 K/uL (4.8-10.8)
[2017-07-04 06:44] LABS: CREATININE 2.3 mg/dl (0.60-1.40)
[2017-07-04] MEDS: CHOLECALCIFEROL 1000 INTER.UNIT TAB PO SCH (07:17)
[2017-07-04] MEDS: CYANOCOBALAMIN 500 MCG TAB (VIT B-12) PO SCH (07:17)
[2017-07-04] MEDS: POTASSIUM CHLORIDE 20 MEQ TABCR PO SCH (07:17)
[2017-07-04] MEDS: CEROVITE ADV FORMULA TAB PO SCH (07:17)
[2017-07-04] MEDS: ASPIRIN 81 MG ECTAB PO SCH (07:17)
[2017-07-04 07:34] VITALS: BP 85/50; PULSE 96; TEMP 37.3; O2SAT 96
[2017-07-04] MEDS: INSULIN GLARGINE SOLOSTAR 100 UNITS/ML 3 ML PEN SC SCH ×2 (08:00→20:19)
[2017-07-04] MEDS ORDERED: VANCOMYCIN INJ 1,750 MG in SODIUM CHLORIDE 0.9% 500ML 500 ML IV SCH (08:00)
[2017-07-04] MEDS ORDERED: SODIUM CHLORIDE 0.9% 1000ML 1,000 ML IV STA (08:23)
[2017-07-04] MEDS: INSULIN ASPART 100 UNITS/ML 3 ML PEN SC SCH ×4 (10:48→20:01)
[2017-07-04 14:53] LABS: BUN/CREATININE RATIO 10.9 (10-20); CALCIUM 7.3 mg/dl (8.5-10.1)
[2017-07-04 15:09] VITALS: BP 86/53; PULSE 101; TEMP 37.4; O2SAT 91
[2017-07-04 16:00] VITALS: O2SAT 91
[2017-07-04 16:00] LABS: URINE APPEARANCE CLOUDY (CLEAR); URINE BILIRUBIN NEG (NEG); URINE COLOR YELLOW; URINE EPITHELIAL CELL AUTO >30 /lpf (0-5); URINE NITRITE NEG (NEG); URINE SPECIFIC GRAVITY 1.026 (1.000-1.030); UROBILINOGEN NEG (NEG); ZZUR CULT IF INDIC CLEAN CATCH YES
[2017-07-04 16:03] LABS: MANUAL MICROSCOPIC REQUIRED? NO; REVIEW REQ? YES
[2017-07-04 16:12] LABS: URINE PATH CASTS 0-3 WBC CASTS /lpf (0)
[2017-07-04 16:35] LABS: URINE PROTIEN/CREAT RATIO 0.4 (0-0.2); URINE TOTAL PROTEIN 72.8 mg/dl (0-11.9)
--- NOTE | 2017-07-04 18:34 | Progress Note ---
Internal Med Progress Note Date of Service: Jul 04, 2017. Provider Documentation: SUBJECTIVE: patient seen at bedside. Still with diffuse red rash on chest and extremities. like yesterday, patient has had blood pressure readings less than systolic of 90 however has been asymptomatic. denies lightheadedness. is at his normal mental baseline. denies pain. OBJECTIVE: General Appearance: no apparent distress, + obese Head: normocephalic, atraumatic Eyes: normal inspection, EOMI, sclerae normal ENT: hearing grossly normal, pharynx normal Neck: supple, no adenopathy, no JVD, trachea midline Respiratory/Chest: lungs clear, no respiratory distress, no accessory muscle use Cardiovascular: regular rate, rhythm, no gallop, no JVD, no murmur, lower extremity edema, L > R Abdomen/GI: normal bowel sounds, non tender, soft, no organomegaly, no pulsatile mass Extremities: + pedal edema, swelling and extensive erythema LLE, bullous lesions with ulcerations on LLE which is now in dressing Neurologic: no motor/sensory deficits, alert, normal mood/affect, oriented x 3 Skin: warm/dry, diffuse maculopapular rash of trunk and extremities ASSESSMENT & PLAN: 57-year-old male with history of diabetes mellitus, hypertension, obstructive sleep apnea, who was recently hospitalized for left lower extremity cellulitis. Improved on IV antibiotics, blood cultures were negative at that time, and he was discharged home on doxycycline and Augmentin. He has since developed progressively worsening left lower extremity erythema with superficial ulceration of the lower leg, and has developed diffuse erythematous maculopapular rash as well. He was readmitted to the hospital with worsening cellulitis and probable drug eruption, and started on vancomycin and levofloxacin for LOWER LEFT LEG CELLULITIS would culture sent on 07/04/17, blood culture on 07/01/17 no growth to date, may need repeat blood cultures to guide antibiotic therapy CT SCAN OF THE LEFT LOWER EXTREMITY WITH IV CONTRAST 1. No acute bony abnormality is seen in the visualized left lower extremity. 2. A left knee arthroplasty is in place. There is no CT evidence of hardware complication. 3. Diffuse subcutaneous soft tissue edema suggests cellulitis. No organized fluid collection is seen to indicate abscess. Likely because of IV contrast and IV antibiotics, patient developing Acute Kidney INJURY with creatinine rising to 2.2 and now downtrending to 2 with IV hydration fo 150 cc/hr Patient had been transitioned to daptomycin of 4 mg per kg every 48 hours on 07/03/17 instead of vancomycin to avoid vancomycin associated kidney injury and to continue levofloxacin RASH Extensive maculopapular rash on trunk and extremities. Most likely drug-eruption secondary to amoxicillin, but cannot exclude doxycycline allergy. Try to avoid steroids if possible due to cellulitis. Diphenhydramine PRN. LLE SWELLING no DVT on lower extremity ultrasound s/p PICC line inadequate IV access Blood pressure readings on right arm appears to underestimate blood pressure, manually check blood pressure if electronic cuff shows systolic blood pressure less than 90, when electronic cuff readings less than systolic of 90, patient has been asymptomatic/alert/oriented/speaking in full sentences/denies lightheadedness. Continue with IV hydration. is not on home dose lisinopril currently because of rising in creatinine HYPOKALEMIA: resolved after potassium repletion, continue to monitor DM TYPE 2 Hold metformin during hospital stay, Lantus + NovoLog per protocol. HYPOTHYROIDISM Continue levothyroxine. VTE PROPHYLAXIS SQ enoxaparin RESUSCITATION STATUS Full code Vital Signs: Date Time Temp Pulse Resp B/P (MAP) Pulse Ox O2 Delivery O2 Flow Rate FiO2 07/04/17 16:00 91 Nasal Cannula 2.0 07/04/17 15:09 37.4 101 16 86/53 (64) 91 Nasal Cannula 2.0 07/04/17 09:06 Nasal Cannula 2.0 07/04/17 07:34 37.3 96 16 85/50 (62) 96 Nasal Cannula 2.0 07/04/17 00:00 93 Nasal Cannula 2.0 07/03/17 22:56 37.7 100 18 96/53 (67) 93 Nasal Cannula 2.0 Lab Results: Results Past 24 Hours Test 07/03/17 20:04 07/04/17 05:29 07/04/17 07:44 07/04/17 11:08 Range/Units Bedside Glucose 130 81 101 70-99 mg/dl White Blood Count 19.58 4.8-10.8 K/uL Red Blood Count 3.15 4.7-6.1 M/uL Hemoglobin 10.1 14.0-18.0 g/dL Hematocrit 31.4 42-52 % Mean Corpuscular Volume 99.7 80-100 fL Mean Corpuscular Hemoglobin 32.1 25-34 pg Mean Corpuscular Hemoglobin Concent 32.2 32-36 g/dl Platelet Count 292 130-400 K/uL Mean Platelet Volume 9.9 7.4-10.4 fL Neutrophils (%) (Auto) 80.7 % Lymphocytes (%) (Auto) 9.3 % Monocytes (%) (Auto) 6.0 % Eosinophils (%) (Auto) 3.1 % Basophils (%) (Auto) 0.1 % Neutrophils # (Auto) 15.80 1.4-6.5 K/uL Lymphocytes # (Auto) 1.83 1.2-3.4 K/uL Monocytes # (Auto) 1.17 0.11-0.59 K/uL Eosinophils # (Auto) 0.60 0-0.5 K/uL Basophils # (Auto) 0.02 0-0.2 K/uL RDW Standard Deviation 47.1 36.4-46.3 fL RDW Coefficient of Variation 13.0 11.5-14.5 % Immature Granulocyte % (Auto) 0.8 % Immature Granulocyte # (Auto) 0.16 0.00-0.02 K/uL Eosinophil Count 600 100-500 uL Creatinine 2.30 0.60-1.40 mg/dl Est Creatinine Clear Calc Drug Dose 47.1 ml/min Estimated GFR () 35.2 Estimated GFR (Non- 30.4 Random Vancomycin Level 18.8 mcg/ml Test 07/04/17 14:15 07/04/17 15:46 07/04/17 16:05 Range/Units Sodium Level 139 136-145 mmol/L Potassium Level 4.0 3.5-5.1 mmol/L Chloride Level 103 98-107 mmol/L Carbon Dioxide Level 29 21-32 mmol/L Anion Gap 7.0 3-11 mmol/L Blood Urea Nitrogen 22 7-18 mg/dl Creatinine 2.00 0.60-1.40 mg/dl Est Creatinine Clear Calc Drug Dose 54.2 ml/min Estimated GFR () 41.7 Estimated GFR (Non- 36.0 BUN/Creatinine Ratio 10.9 10-20 Random Glucose 105 70-99 mg/dl Lactic Acid Level 1.1 0.4-2.0 mmol/L Calcium Level 7.3 8.5-10.1 mg/dl Total Creatine Kinase 53 39-308 U/L Urine Color YELLOW Urine Appearance CLOUDY CLEAR Urine pH 5.0 4.5-7.5 Urine Specific [place] 1.026 1.000-1.030 Urine Protein TRACE NEG Urine Glucose (UA) NEG NEG Urine Ketones NEG NEG Urine Occult Blood TRACE NEG Urine Nitrite NEG NEG Urine Bilirubin NEG NEG Urine Urobilinogen NEG NEG Urine Leukocyte Esterase MODERATE NEG Urine WBC (Auto) 10-30 0-5 /hpf Urine RBC (Auto) 0-4 0-4 /hpf Urine Hyaline Casts (Auto) 5-10 0-5 /lpf Urine Epithelial Cells (Auto) >30 0-5 /lpf Urine Bacteria (Auto) NEG NEG Urine Renal Epithelial Cells 0-5 0-5 /lpf Urine Pathogenic Casts 0-3 WBC CASTS 0 /lpf Urine Yeast (Auto) NONE PRSENT Urine Random Creatinine 190.0 mg/dl Urine Random Total Protein 72.8 0-11.9 mg/dl Urine Protein/Creatinine Ratio 0.4 0-0.2 Bedside Glucose 101 70-99 mg/dl Microbiology Results 07/04/17 Urine Culture, Received Pending 07/04/17 Gram Stain, Received Pending 07/04/17 Wound Culture, Received Pending
[2017-07-04] MEDS: SIMVASTATIN 20 MG TAB PO SCH (20:04)
--- NOTE | 2017-07-04 20:13 | Infectious Disease Progress Nt ---
Progress Note Date of Service Jul 04, 2017. Subjective Pt evaluation today including: conversation w/ patient, physical exam, chart review, lab review, review of studies, conversation w/ mental health consultant, review of inpatient medication list Patient with intermittent fever. Rash appears to be slowly fading. Left leg remains painful and erythematous. All Other Systems: Reviewed and Negative Medications Current Inpatient Medications Medications (Trade) Dose Ordered Sig/Noble Route Start Time Stop Time Status Last Admin Dose Admin Acetaminophen (Tylenol Tab) 650 mg Q4H PRN PO 07/01/17 19:15 07/31/17 19:14 07/02/17 14:56 650 MG Aspirin (Ecotrin Tab) 81 mg DAILY PO 07/02/17 08:00 08/01/17 08:59 07/04/17 07:17 81 MG Cholecalciferol (Vitamin D Tab) 1,000 inter.unit DAILY PO 07/02/17 08:00 08/01/17 08:59 07/04/17 07:17 1,000 INTER.UNIT Cyanocobalamin (Vitamin B-12 Tab) 500 mcg DAILY PO 07/02/17 08:00 08/01/17 08:59 07/04/17 07:17 500 MCG Levothyroxine Sodium (Synthroid Tab) 25 mcg DAILYBB PO 07/02/17 06:30 08/01/17 06:29 07/04/17 05:56 25 MCG Levothyroxine Sodium (Synthroid Tab) 200 mcg DAILYBB PO 07/02/17 06:30 08/01/17 06:29 07/04/17 05:56 200 MCG Lisinopril (Zestril Tab) 10 mg QPM PO 07/01/17 21:00 07/31/17 20:59 Future Hold 07/02/17 20:31 10 MG Multivitamins/ Minerals (Multivitamin W/ Minerals Tab) 1 tab DAILY PO 07/02/17 08:00 08/01/17 08:59 07/04/17 07:17 1 TAB Simvastatin (Zocor Tab) 20 mg QPM PO 07/01/17 21:00 07/31/17 20:59 07/03/17 20:42 20 MG Tramadol HCl (Ultram Tab) 100 mg Q6H PRN PO 07/01/17 19:30 07/31/17 19:29 07/04/17 05:56 100 MG Oxycodone HCl (Roxicodone Immediate Rel Tab) 10 mg Q6H PRN PO 07/01/17 19:30 07/15/17 19:29 07/02/17 05:12 10 MG Insulin Glargine (Lantus Solostar Pen) 12 units BID SC 07/01/17 20:20 07/31/17 20:59 07/03/17 20:43 12 UNITS Insulin Aspart (novoLOG ASPART) SLIDING SCALE G... ACHS SC 07/01/17 21:00 07/31/17 20:59 07/03/17 09:35 2 UNITS Diphenhydramine HCl (Benadryl Cap) 50 mg Q6H PRN PO 07/01/17 19:30 07/31/17 19:29 07/04/17 00:09 50 MG Potassium Chloride (Klor-Con Tab) 20 meq QAM PO 07/02/17 08:00 08/01/17 08:59 07/04/17 07:17 20 MEQ Glucose (Glucose 40% Gel) 15-30 GRAMS 15 GRAMS... UD PRN PO 07/01/17 20:45 07/31/17 20:44 Glucose (Glucose Chew Tab) 4-8 Tablets 4 Tabl... UD PRN PO 07/01/17 20:45 07/31/17 20:44 Dextrose (Dextrose 50% 50ML Syringe) 25-50ML OF 50% DW IV FOR... UD PRN IV 07/01/17 20:45 07/31/17 20:44 Glucagon (Glucagon Inj) 1 mg UD PRN SQ 07/01/17 20:45 07/31/17 20:44 Levofloxacin 750 mg/Prmx 150 ml @ 100 mls/hr Q24H IV 07/02/17 00:00 07/12/17 00:00 07/04/17 00:09 100 MLS/HR Ioversol (Optiray 320) 100 ml UD PRN IV 07/02/17 12:00 07/06/17 11:59 Daptomycin 550 mg/ Sodium Chloride 61 ml @ 100 mls/hr Q48H IV 07/03/17 14:00 07/13/17 13:59 07/03/17 17:09 100 MLS/HR Heparin Sodium (Porcine) (Heparin 10 Unit/ ml 5 ml Flush) 5 ml PRN PRN FLUSH 07/03/17 18:45 08/02/17 18:44 07/04/17 05:29 5 ML Heparin Sodium (Porcine) (Heparin Sq 5000 Unit/0.5ml) 5,000 unit Q12 SQ 07/04/17 21:00 08/03/17 20:59 Objective Vital Signs Date Time Temp Pulse Resp B/P (MAP) Pulse Ox O2 Delivery O2 Flow Rate FiO2 07/04/17 16:00 91 Nasal Cannula 2.0 07/04/17 15:09 37.4 101 16 86/53 (64) 91 Nasal Cannula 2.0 07/04/17 09:06 Nasal Cannula 2.0 07/04/17 07:34 37.3 96 16 85/50 (62) 96 Nasal Cannula 2.0 07/04/17 00:00 93 Nasal Cannula 2.0 07/03/17 22:56 37.7 100 18 96/53 (67) 93 Nasal Cannula 2.0 Physical Exam General Appearance: WD/WN, no apparent distress Eyes: normal inspection, EOMI, sclerae normal ENT: normal ENT inspection, pharynx normal Neck: supple, no adenopathy, thyroid normal, trachea midline Respiratory/Chest: chest non-tender, lungs clear, normal breath sounds, no respiratory distress Cardiovascular: regular rate, rhythm, no gallop, no murmur Abdomen: normal bowel sounds, non tender, soft, no organomegaly Extremities: + inflammation ( Left leg), + swelling ( left leg) Neurologic/Psychiatric: alert, oriented x 3 Skin: normal color, + rash ( diffuse maculopapular rash, most slightly better) , + pertinent finding ( left leg erythema with anterior ferro ulceration) Lymphatic: no adenopathy Laboratory Results Last 24 Hours Test 07/04/17 05:29 07/04/17 07:44 07/04/17 11:08 07/04/17 14:15 White Blood Count 19.58 K/uL Red Blood Count 3.15 M/uL Hemoglobin 10.1 g/dL Hematocrit 31.4 % Mean Corpuscular Volume 99.7 fL Mean Corpuscular Hemoglobin 32.1 pg Mean Corpuscular Hemoglobin Concent 32.2 g/dl Platelet Count 292 K/uL Mean Platelet Volume 9.9 fL Neutrophils (%) (Auto) 80.7 % Lymphocytes (%) (Auto) 9.3 % Monocytes (%) (Auto) 6.0 % Eosinophils (%) (Auto) 3.1 % Basophils (%) (Auto) 0.1 % Neutrophils # (Auto) 15.80 K/uL Lymphocytes # (Auto) 1.83 K/uL Monocytes # (Auto) 1.17 K/uL Eosinophils # (Auto) 0.60 K/uL Basophils # (Auto) 0.02 K/uL RDW Standard Deviation 47.1 fL RDW Coefficient of Variation 13.0 % Immature Granulocyte % (Auto) 0.8 % Immature Granulocyte # (Auto) 0.16 K/uL Eosinophil Count 600 uL Creatinine 2.30 mg/dl 2.00 mg/dl Est Creatinine Clear Calc Drug Dose 47.1 ml/min 54.2 ml/min Estimated GFR () 35.2 41.7 Estimated GFR (Non- 30.4 36.0 Random Vancomycin Level 18.8 mcg/ml Bedside Glucose 81 mg/dl 101 mg/dl Sodium Level 139 mmol/L Potassium Level 4.0 mmol/L Chloride Level 103 mmol/L Carbon Dioxide Level 29 mmol/L Anion Gap 7.0 mmol/L Blood Urea Nitrogen 22 mg/dl BUN/Creatinine Ratio 10.9 Random Glucose 105 mg/dl Lactic Acid Level 1.1 mmol/L Calcium Level 7.3 mg/dl Total Creatine Kinase 53 U/L Test 07/04/17 15:46 07/04/17 16:05 07/04/17 19:52 Urine Color YELLOW Urine Appearance CLOUDY Urine pH 5.0 Urine Specific [place] 1.026 Urine Protein TRACE Urine Glucose (UA) NEG Urine Ketones NEG Urine Occult Blood TRACE Urine Nitrite NEG Urine Bilirubin NEG Urine Urobilinogen NEG Urine Leukocyte Esterase MODERATE Urine WBC (Auto) 10-30 /hpf Urine RBC (Auto) 0-4 /hpf Urine Hyaline Casts (Auto) 5-10 /lpf Urine Epithelial Cells (Auto) >30 /lpf Urine Bacteria (Auto) NEG Urine Renal Epithelial Cells 0-5 /lpf Urine Pathogenic Casts 0-3 WBC CASTS /lpf Urine Yeast (Auto) Urine Random Creatinine 190.0 mg/dl Urine Random Total Protein 72.8 mg/dl Urine Protein/Creatinine Ratio 0.4 Bedside Glucose 101 mg/dl 109 mg/dl Assessment and Plan Recurrent left lower extremity cellulitis as well as significant drug allergy, likely to Augmentin. Would continue patient on daptomycin and levofloxacin pending further culture results. Will follow.
[2017-07-04] MEDS: HEPARIN SOD 5000 UNIT/0.5 ML CARP SQ SCH (20:18)
[2017-07-04 21:21] VITALS: BP 102/64; PULSE 97; O2SAT 91
[2017-07-04] MEDS ORDERED: NURSING DECISION MEDICATION ORDER SCH (22:45)
[2017-07-04] MEDS ORDERED: MICONAZOLE NITRATE POWDER 43 GM EXT PRN (23:00)
[2017-07-05] VITALS: O2SAT 91
[2017-07-05 00:06] VITALS: BP 101/67; PULSE 92; TEMP 37; O2SAT 90
[2017-07-05] MEDS: LEVOTHYROXINE 25 MCG TAB PO SCH (06:05)
[2017-07-05] MEDS: LEVOTHYROXINE 200 MCG TAB PO SCH (06:05)
[2017-07-05 06:17] LABS: BASO % 0.1 %; BASO ABS # 0.02 K/uL (0-0.2); COMPLETE YES; EOS % 3.8 %; HEMATOCRIT 31.4 % (42-52); IG% 0.6 %; LYMPH % 11.9 %; LYMPH ABS # 1.72 K/uL (1.2-3.4); MEAN CELL VOLUME 96.9 fL (80-100); MEAN CORPUSCULAR HEMOGLOBIN 31.2 pg (25-34); MEAN CORPUSCULAR HGB CONC 32.2 g/dl (32-36); MONO % 6.4 %; NEUT % 77.2 %; PLATELET COUNT 289 K/uL (130-400); RED BLOOD COUNT 3.24 M/uL (4.7-6.1); WHITE BLOOD COUNT 14.47 K/uL (4.8-10.8)
[2017-07-05 06:52] LABS: CALCIUM 8.2 mg/dl (8.5-10.1); CREATININE 1.7 mg/dl (0.60-1.40); POTASSIUM 3.9 mmol/L (3.5-5.1)
[2017-07-05 08:00] VITALS: O2SAT 92
[2017-07-05 08:02] VITALS: BP 119/75; PULSE 72; TEMP 36.9; O2SAT 91
[2017-07-05] MEDS: CYANOCOBALAMIN 500 MCG TAB (VIT B-12) PO SCH (08:04)
[2017-07-05] MEDS: CEROVITE ADV FORMULA TAB PO SCH (08:04)
[2017-07-05] MEDS: CHOLECALCIFEROL 1000 INTER.UNIT TAB PO SCH (08:04)
[2017-07-05] MEDS: ASPIRIN 81 MG ECTAB PO SCH (08:04)
[2017-07-05] MEDS: POTASSIUM CHLORIDE 20 MEQ TABCR PO SCH (08:04)
[2017-07-05] MEDS: INSULIN ASPART 100 UNITS/ML 3 ML PEN SC SCH ×4 (09:19→21:00)
[2017-07-05] MEDS: HEPARIN SOD 5000 UNIT/0.5 ML CARP SQ SCH ×2 (09:20→22:03)
[2017-07-05] MEDS: INSULIN GLARGINE SOLOSTAR 100 UNITS/ML 3 ML PEN SC SCH ×2 (09:20→22:03)
[2017-07-05] MEDS: DAPTOmycin IV 550 MG in SODIUM CHLORIDE 0.9% 50ML 50 ML IV SCH (13:24)
--- NOTE | 2017-07-05 14:35 | NEPHROLOGY CONSULTATION ---
DATE OF CONSULTATION: 07/05/2017 REASON FOR CONSULT: Acute renal failure. HISTORY OF PRESENT ILLNESS: The patient is a 57-year-old male who was hospitalized at [facility] on 06/23/2017 with cellulitis of the left lower extremity. During that time, he received multiple IV antibiotics including ceftriaxone, Zosyn, vancomycin and improved. Blood culture was always negative. He was discharged 4 days later and was supposed to take outpatient doxycycline and Augmentin. After the discharge, he developed worsening erythema and swelling of left leg, but he also developed very prominent rash involving his entire body, both trunk and extremities. However, he denied having any fever. He denied any chest pain, shortness of breath, urinary complaints, nausea, vomiting, or diarrhea. He was admitted 4 days ago with a creatinine of 0.82. The following day, he had a CT of the lower extremity with iv contrast. There are multiple readings of very low blood pressure with systolic as low as 70 on July 02 and July 03 as well as July 04. Coinciding with the low blood pressure, creatinine started to go up and went from 0.8 on July 01 to the peak of 2.30 on July 04. IV fluid was started. Vancomycin was stopped. This morning, creatinine slightly better at 1.7 and he is no longer hypotensive. He is making adequate amount of urine. He still has a very prominent rash involving entire body. PAST MEDICAL AND SURGICAL HISTORY: Type 2 diabetes, obesity, dyslipidemia, hypertension, hypothyroidism, obstructive sleep apnea, and history of left knee replacement. FAMILY HISTORY: Brother has some kind of kidney disease. SOCIAL HISTORY: Current every day smoker. No alcohol. ALLERGIES: LIST WAS REVIEWED IN DETAIL. MEDICATIONS: PER THE MEDICINE LIST, HOME MEDICATION LIST WAS REVIEWED IN DETAIL. REVIEW OF SYSTEMS: As detailed in the HPI. Unless stated otherwise, a 12-point systems reviewed and negative. PHYSICAL EXAMINATION: GENERAL: Middle-aged white male, who is obese. He is not in any distress. HEENT: Normocephalic and atraumatic. NECK: Supple. No jugular venous distention. LUNGS: Bilateral clear to auscultation. No respiratory distress. CARDIOVASCULAR: Regular rate and rhythm. No murmur, gallop or rub heard. He does have 2+ lower extremity edema, slightly more on the left. ABDOMEN: Soft, nontender, And obese. EXTREMITIES: Shows swelling and extensive erythema of left lower extremity as well as some lesions and some skin breakdown. There is also some rash on the right lower extremity. SKIN: He has very very prominent maculopapular erythematous rash involving both trunk and extremities. NEUROLOGIC: Awake, alert, and oriented x3. LABORATORY TESTS: Reviewed in detail. On the day of admission, he had pretty much normal renal function with a creatinine of 0.8 and a BUN of 6. Since admission, it has got worse and creatinine went to 1.1, then 1.80 and then 2.30, after which I was consulted and this morning, it is better at 1.7. Blood work from this morning shows sodium 141, potassium 3.9, BUN 17, creatinine 1.7, and calcium 8.2. ASSESSMENT AND PLAN: Acute renal failure. This is most likely related with hypotension, which he definitely developed on July 02 to July 04. The rise in creatinine coincided with the periods of low blood pressure. Although, he did get IV contrast exposure. I believe the primary reason for ARF is still hypotension and relative volume depletion. He is not volume depleted in the true sense, but when the blood pressure is very low, it can affect the renal perfusion and lower the GFR. With the use of IV fluid, his blood pressure is now better and his creatinine is also getting better. He had very prominent rash, but I do not believe that this is allergic interstitial nephritis. The improving creatinine is very reassuring and I do not believe there is a need for any further testing. He is making urine and he is not obstructive. Continue to follow daily labs. As much as possible, avoid potentially nephrotoxic agents. MTDD
--- NOTE | 2017-07-05 14:40 | Progress Note ---
Internal Med Progress Note Date of Service: Jul 05, 2017. Provider Documentation: SUBJECTIVE: patient seen at bedside. Still with diffuse red rash on chest and extremities but patient reporting that rash appears to be less. denies lightheadedness. is at his normal mental baseline. denies pain. OBJECTIVE: General Appearance: no apparent distress, + obese Head: normocephalic, atraumatic Eyes: normal inspection, EOMI, sclerae normal ENT: hearing grossly normal, pharynx normal Neck: supple, no adenopathy, no JVD, trachea midline Respiratory/Chest: lungs clear, no respiratory distress, no accessory muscle use Cardiovascular: regular rate, rhythm, no gallop, no JVD, no murmur, lower extremity edema, L > R Abdomen/GI: normal bowel sounds, non tender, soft, no organomegaly, no pulsatile mass Extremities: + pedal edema, swelling and extensive erythema LLE, bullous lesions with ulcerations on LLE which is now in dressing Neurologic: no motor/sensory deficits, alert, normal mood/affect, oriented x 3 Skin: warm/dry, diffuse maculopapular rash of trunk and extremities ASSESSMENT & PLAN: 57-year-old male with history of diabetes mellitus, hypertension, obstructive sleep apnea, who was recently hospitalized for left lower extremity cellulitis. Improved on IV antibiotics, blood cultures were negative at that time, and he was discharged home on doxycycline and Augmentin. He has since developed progressively worsening left lower extremity erythema with superficial ulceration of the lower leg, and has developed diffuse erythematous maculopapular rash as well. He was readmitted to the hospital with worsening cellulitis and probable drug eruption, and initially started on vancomycin and levofloxacin for LOWER LEFT LEG CELLULITIS. Patient had been transitioned to daptomycin of 4 mg per kg every 48 hours on 07/03/17 instead of vancomycin to avoid vancomycin associated kidney injury and to continue levofloxacin WBC downtrending on antibiotics blood culture on 07/01/17 no growth to date,repeat blood cultures drawn on 07/04, 07/05, urine culture on clean catch 07/04/17 with shruthi but patient has been asymptomatic, no recent rodriguez catheters, will continue to monitor and repeat UA CT SCAN OF THE LEFT LOWER EXTREMITY WITH IV CONTRAST 1. No acute bony abnormality is seen in the visualized left lower extremity. 2. A left knee arthroplasty is in place. There is no CT evidence of hardware complication. 3. Diffuse subcutaneous soft tissue edema suggests cellulitis. No organized fluid collection is seen to indicate abscess. Likely because of IV contrast and IV antibiotics, patient developedAcute Kidney INJURY with creatinine rising to 2.2 and now downtrending to 1.7 with IV hydration fo 150 cc/hr RASH Extensive maculopapular rash on trunk and extremities. Most likely drug-eruption secondary to amoxicillin, but cannot exclude doxycycline allergy. Try to avoid steroids if possible due to cellulitis. Diphenhydramine PRN. LLE SWELLING no DVT on lower extremity ultrasound s/p PICC line because of inadequate IV access Blood pressure readings on right arm appears to underestimate blood pressure, manually check blood pressure if electronic cuff shows systolic blood pressure less than 90, when electronic cuff readings less than systolic of 90, patient has been asymptomatic/alert/oriented/speaking in full sentences/denies lightheadedness. Continue with IV hydration. is not on home dose lisinopril currently because of rising in creatinine HYPOKALEMIA: resolved after potassium repletion, continue to monitor DM TYPE 2 Hold metformin during hospital stay, Lantus + NovoLog per protocol. HYPOTHYROIDISM Continue levothyroxine. VTE PROPHYLAXIS heparin subcut RESUSCITATION STATUS Full code Vital Signs: Date Time Temp Pulse Resp B/P (MAP) Pulse Ox O2 Delivery O2 Flow Rate FiO2 07/05/17 08:02 36.9 72 20 119/75 (90) 91 Room Air 07/05/17 00:06 37.0 92 18 101/67 (78) 90 Room Air 07/05/17 00:00 91 Nasal Cannula 2.0 07/04/17 21:21 97 19 102/64 (77) 91 Nasal Cannula 2.0 07/04/17 16:00 91 Nasal Cannula 2.0 07/04/17 15:09 37.4 101 16 86/53 (64) 91 Nasal Cannula 2.0 Lab Results: Results Past 24 Hours Test 07/04/17 15:46 07/04/17 16:05 07/04/17 19:52 07/05/17 05:43 Range/Units Urine Color YELLOW Urine Appearance CLOUDY CLEAR Urine pH 5.0 4.5-7.5 Urine Specific [place] 1.026 1.000-1.030 Urine Protein TRACE NEG Urine Glucose (UA) NEG NEG Urine Ketones NEG NEG Urine Occult Blood TRACE NEG Urine Nitrite NEG NEG Urine Bilirubin NEG NEG Urine Urobilinogen NEG NEG Urine Leukocyte Esterase MODERATE NEG Urine WBC (Auto) 10-30 0-5 /hpf Urine RBC (Auto) 0-4 0-4 /hpf Urine Hyaline Casts (Auto) 5-10 0-5 /lpf Urine Epithelial Cells (Auto) >30 0-5 /lpf Urine Bacteria (Auto) NEG NEG Urine Renal Epithelial Cells 0-5 0-5 /lpf Urine Pathogenic Casts 0-3 WBC CASTS 0 /lpf Urine Yeast (Auto) NONE PRSENT Urine Random Creatinine 190.0 mg/dl Urine Random Total Protein 72.8 0-11.9 mg/dl Urine Protein/Creatinine Ratio 0.4 0-0.2 Bedside Glucose 101 109 70-99 mg/dl White Blood Count 14.47 4.8-10.8 K/uL Red Blood Count 3.24 4.7-6.1 M/uL Hemoglobin 10.1 14.0-18.0 g/dL Hematocrit 31.4 42-52 % Mean Corpuscular Volume 96.9 80-100 fL Mean Corpuscular Hemoglobin 31.2 25-34 pg Mean Corpuscular Hemoglobin Concent 32.2 32-36 g/dl Platelet Count 289 130-400 K/uL Mean Platelet Volume 10.0 7.4-10.4 fL Neutrophils (%) (Auto) 77.2 % Lymphocytes (%) (Auto) 11.9 % Monocytes (%) (Auto) 6.4 % Eosinophils (%) (Auto) 3.8 % Basophils (%) (Auto) 0.1 % Neutrophils # (Auto) 11.16 1.4-6.5 K/uL Lymphocytes # (Auto) 1.72 1.2-3.4 K/uL Monocytes # (Auto) 0.93 0.11-0.59 K/uL Eosinophils # (Auto) 0.55 0-0.5 K/uL Basophils # (Auto) 0.02 0-0.2 K/uL RDW Standard Deviation 44.9 36.4-46.3 fL RDW Coefficient of Variation 12.7 11.5-14.5 % Immature Granulocyte % (Auto) 0.6 % Immature Granulocyte # (Auto) 0.09 0.00-0.02 K/uL Sodium Level 141 136-145 mmol/L Potassium Level 3.9 3.5-5.1 mmol/L Chloride Level 104 98-107 mmol/L Carbon Dioxide Level 31 21-32 mmol/L Anion Gap 6.0 3-11 mmol/L Blood Urea Nitrogen 17 7-18 mg/dl Creatinine 1.70 0.60-1.40 mg/dl Est Creatinine Clear Calc Drug Dose 63.8 ml/min Estimated GFR () 50.8 Estimated GFR (Non- 43.8 BUN/Creatinine Ratio 10.0 10-20 Random Glucose 89 70-99 mg/dl Calcium Level 8.2 8.5-10.1 mg/dl Test 07/05/17 07:41 07/05/17 11:34 Range/Units Bedside Glucose 101 102 70-99 mg/dl Microbiology Results 07/05/17 Blood Culture, Received Pending 07/05/17 Blood Culture, Received Pending 07/04/17 Blood Culture, Received Pending 07/04/17 Blood Culture, Received Pending 07/04/17 Urine Culture - Preliminary, Resulted Shruthi Albicans
[2017-07-05 15:59] VITALS: BP 93/64; PULSE 96; TEMP 36.5; O2SAT 90
[2017-07-05] MEDS: TRAMADOL HCL 50 MG TAB PO PRN (16:20)
[2017-07-05] MEDS: OXYCODONE HCL IR 5 MG TAB (IMMEDIATE RELEASE) PO PRN ×2 (17:22→22:07)
[2017-07-05 18:00] VITALS: O2SAT 92
[2017-07-05] MEDS: SIMVASTATIN 20 MG TAB PO SCH (22:01)
[2017-07-06 00:15] VITALS: O2SAT 92
[2017-07-06] MEDS: LEVOFLOXACIN / D5W 750 MG in PREMIXED IN D5W 150 ML IV SCH (00:26)
[2017-07-06 01:10] VITALS: BP 105/69; PULSE 93; TEMP 36.8; O2SAT 97
[2017-07-06 04:48] LABS: MANUAL MICROSCOPIC REQUIRED? YES; URINE APPEARANCE CLEAR (CLEAR); URINE BILIRUBIN NEG (NEG); URINE COLOR YELLOW; URINE NITRITE NEG (NEG); UROBILINOGEN NEG (NEG)
[2017-07-06 04:52] LABS: REVIEW REQ? NO
[2017-07-06 05:04] LABS: URINE BACTERIA NEG (NEG); URINE RBC 0-4 /hpf (0-4); URINE WBC 0 /hpf (0-5)
[2017-07-06 06:31] LABS: BUN/CREATININE RATIO 9.2 (10-20); CALCIUM 8.1 mg/dl (8.5-10.1); CREATININE 1.4 mg/dl (0.60-1.40); POTASSIUM 4.1 mmol/L (3.5-5.1)
[2017-07-06] MEDS: LEVOTHYROXINE 25 MCG TAB PO SCH (06:39)
[2017-07-06] MEDS: LEVOTHYROXINE 200 MCG TAB PO SCH (06:39)
[2017-07-06 06:53] LABS: BASO % 0.4 %; BASO ABS # 0.04 K/uL (0-0.2); COMPLETE YES; EOS % 4.5 %; HEMATOCRIT 29.9 % (42-52); LYMPH % 16.9 %; LYMPH ABS # 1.85 K/uL (1.2-3.4); MEAN CELL VOLUME 97.4 fL (80-100); MEAN CORPUSCULAR HEMOGLOBIN 30.9 pg (25-34); MEAN CORPUSCULAR HGB CONC 31.8 g/dl (32-36); MEAN PLATELET VOLUME 9.8 fL (7.4-10.4); MONO % 9.9 %; NEUT % 67.3 %; PLATELET COUNT 298 K/uL (130-400); RED BLOOD COUNT 3.07 M/uL (4.7-6.1); WHITE BLOOD COUNT 10.96 K/uL (4.8-10.8)
[2017-07-06 08:24] VITALS: BP 111/70; PULSE 94; TEMP 36.5; O2SAT 97
[2017-07-06] MEDS: ASPIRIN 81 MG ECTAB PO SCH (09:14)
[2017-07-06] MEDS: CYANOCOBALAMIN 500 MCG TAB (VIT B-12) PO SCH (09:15)
[2017-07-06] MEDS: CHOLECALCIFEROL 1000 INTER.UNIT TAB PO SCH (09:15)
[2017-07-06] MEDS: CEROVITE ADV FORMULA TAB PO SCH (09:15)
[2017-07-06] MEDS: POTASSIUM CHLORIDE 20 MEQ TABCR PO SCH (09:15)
[2017-07-06] MEDS ORDERED: FLUCONAZOLE 100 MG TAB PO STA (09:17)
[2017-07-06] MEDS: INSULIN GLARGINE SOLOSTAR 100 UNITS/ML 3 ML PEN SC SCH ×2 (09:20→20:38)
[2017-07-06] MEDS: INSULIN ASPART 100 UNITS/ML 3 ML PEN SC SCH ×4 (09:20→20:39)
[2017-07-06] MEDS: HEPARIN SOD 5000 UNIT/0.5 ML CARP SQ SCH ×2 (09:21→20:40)
[2017-07-06] MEDS: CLOTRIMAZOLE 1% CR 15 GM TUBE EXT SCH ×2 (10:12→20:39)
[2017-07-06] MEDS: OXYCODONE HCL IR 5 MG TAB (IMMEDIATE RELEASE) PO PRN (15:34)
[2017-07-06 15:38] VITALS: BP 103/67; PULSE 93; TEMP 36.7; O2SAT 95
[2017-07-06] MEDS: TRAMADOL HCL 50 MG TAB PO PRN (18:14)
--- NOTE | 2017-07-06 18:18 | Progress Note ---
Internal Med Progress Note Date of Service: Jul 06, 2017. Provider Documentation: SUBJECTIVE: patient seen at bedside. patient reports less rash. rash resolving on abdomen but still present. continues to have rash on all four extremities. patient denies lightheadedness, chest pain or shortness of breath. reports he is urinating OBJECTIVE: General Appearance: no apparent distress, + obese Head: normocephalic, atraumatic Eyes: normal inspection, EOMI, sclerae normal ENT: hearing grossly normal, pharynx normal Neck: supple, no adenopathy, no JVD, trachea midline Respiratory/Chest: lungs clear, no respiratory distress, no accessory muscle use Cardiovascular: regular rate, rhythm, no gallop, no JVD, no murmur, lower extremity edema, L > R Abdomen/GI: normal bowel sounds, non tender, soft, rash resolving on abdomen but still present. Extremities: left knee swelling and extensive erythema LLE, bullous lesions with ulcerations on LLE which is now in dressing , continues to have rash on all four extremities Neurologic: no motor/sensory deficits, alert, normal mood/affect, oriented x 3 Skin: see above ASSESSMENT & PLAN: 57-year-old male with history of diabetes mellitus, hypertension, obstructive sleep apnea, who was recently hospitalized for left lower extremity cellulitis. Improved on IV antibiotics, blood cultures were negative at that time, and he was discharged home on doxycycline and Augmentin. He has since developed progressively worsening left lower extremity erythema with superficial ulceration of the lower leg, and has developed diffuse erythematous maculopapular rash as well. He was readmitted to the hospital with worsening cellulitis and probable drug eruption, and initially started on vancomycin and levofloxacin for LOWER LEFT LEG CELLULITIS. Patient had been transitioned to daptomycin of 4 mg per kg every 48 hours on 07/03/17 instead of vancomycin to avoid vancomycin associated kidney injury and to continue levofloxacin WBC downtrending on antibiotics blood culture on 07/01, 07/04, 07/05, no growth to date urine culture on clean catch 07/04/17 with melinda but patient has been asymptomatic, no recent rodriguez catheters, wound culture of lower left extremity with melinda: start fluconazole for melinda UTI, and antifungal cream to skin wound CT SCAN OF THE LEFT LOWER EXTREMITY WITH IV CONTRAST 1. No acute bony abnormality is seen in the visualized left lower extremity. 2. A left knee arthroplasty is in place. There is no CT evidence of hardware complication. 3. Diffuse subcutaneous soft tissue edema suggests cellulitis. No organized fluid collection is seen to indicate abscess. Likely because of IV contrast and IV antibiotics, patient developed Acute Kidney INJURY with creatinine rising to 2.2 and now downtrending after IV hydration to 1.4 RASH Extensive maculopapular rash on trunk and extremities on admission, now with some resolution of the rash around the abdomen Most likely drug-eruption secondary to amoxicillin, but cannot exclude doxycycline allergy. avoid steroids if possible due to cellulitis. Diphenhydramine PRN. LLE SWELLING no DVT on lower extremity ultrasound s/p PICC line because of inadequate IV access Blood pressure readings on right arm appears to underestimate blood pressure, manually check blood pressure if electronic cuff shows systolic blood pressure less than 90, when electronic cuff readings less than systolic of 90, patient has been asymptomatic/alert/oriented/speaking in full sentences/denies lightheadedness. Continue with IV hydration. is not on home dose lisinopril currently because of rising in creatinine HYPOKALEMIA: resolved after potassium repletion, continue to monitor DM TYPE 2 Hold metformin during hospital stay, Lantus + NovoLog per protocol. HYPOTHYROIDISM Continue levothyroxine. VTE PROPHYLAXIS heparin subcut RESUSCITATION STATUS Full code Vital Signs: Date Time Temp Pulse Resp B/P (MAP) Pulse Ox O2 Delivery O2 Flow Rate FiO2 07/06/17 15:38 36.7 93 18 103/67 (79) 95 Nasal Cannula 2.5 07/06/17 15:30 Nasal Cannula 2.0 07/06/17 09:00 Nasal Cannula 2.0 07/06/17 08:24 36.5 94 17 111/70 (84) 97 Nasal Cannula 2.5 07/06/17 01:10 36.8 93 20 105/69 (81) 97 2.0 07/06/17 00:15 92 Room Air 2.0 Lab Results: Results Past 24 Hours Test 07/05/17 20:06 07/06/17 04:30 07/06/17 05:48 07/06/17 07:57 Range/Units Bedside Glucose 101 87 70-99 mg/dl Urine Color YELLOW Urine Appearance CLEAR CLEAR Urine pH 5.0 4.5-7.5 Urine Specific Arnett 1.010 1.000-1.030 Urine Protein NEG NEG Urine Glucose (UA) NEG NEG Urine Ketones NEG NEG Urine Occult Blood TRACE NEG Urine Nitrite NEG NEG Urine Bilirubin NEG NEG Urine Urobilinogen NEG NEG Urine Leukocyte Esterase NEG NEG Urine RBC 0-4 0-4 /hpf Urine WBC 0 0-5 /hpf Urine Epithelial Cells 5-10 0-5 /lpf Urine Bacteria NEG NEG White Blood Count 10.96 4.8-10.8 K/uL Red Blood Count 3.07 4.7-6.1 M/uL Hemoglobin 9.5 14.0-18.0 g/dL Hematocrit 29.9 42-52 % Mean Corpuscular Volume 97.4 80-100 fL Mean Corpuscular Hemoglobin 30.9 25-34 pg Mean Corpuscular Hemoglobin Concent 31.8 32-36 g/dl Platelet Count 298 130-400 K/uL Mean Platelet Volume 9.8 7.4-10.4 fL Neutrophils (%) (Auto) 67.3 % Lymphocytes (%) (Auto) 16.9 % Monocytes (%) (Auto) 9.9 % Eosinophils (%) (Auto) 4.5 % Basophils (%) (Auto) 0.4 % Neutrophils # (Auto) 7.39 1.4-6.5 K/uL Lymphocytes # (Auto) 1.85 1.2-3.4 K/uL Monocytes # (Auto) 1.08 0.11-0.59 K/uL Eosinophils # (Auto) 0.49 0-0.5 K/uL Basophils # (Auto) 0.04 0-0.2 K/uL RDW Standard Deviation 45.8 36.4-46.3 fL RDW Coefficient of Variation 12.9 11.5-14.5 % Immature Granulocyte % (Auto) 1.0 % Immature Granulocyte # (Auto) 0.11 0.00-0.02 K/uL Sodium Level 142 136-145 mmol/L Potassium Level 4.1 3.5-5.1 mmol/L Chloride Level 105 98-107 mmol/L Carbon Dioxide Level 30 21-32 mmol/L Anion Gap 7.0 3-11 mmol/L Blood Urea Nitrogen 13 7-18 mg/dl Creatinine 1.40 0.60-1.40 mg/dl Est Creatinine Clear Calc Drug Dose 77.4 ml/min Estimated GFR () 64.2 Estimated GFR (Non- 55.4 BUN/Creatinine Ratio 9.2 10-20 Random Glucose 82 70-99 mg/dl Calcium Level 8.1 8.5-10.1 mg/dl Test 07/06/17 11:41 07/06/17 17:15 Range/Units Bedside Glucose 100 115 70-99 mg/dl
[2017-07-06] MEDS: SIMVASTATIN 20 MG TAB PO SCH (20:40)
[2017-07-06 23:36] VITALS: BP 117/78; PULSE 96; TEMP 36.6; O2SAT 98
[2017-07-07] MEDS: LEVOFLOXACIN / D5W 750 MG in PREMIXED IN D5W 150 ML IV SCH (00:09)
[2017-07-07] MEDS: OXYCODONE HCL IR 5 MG TAB (IMMEDIATE RELEASE) PO PRN ×2 (00:15→20:02)
[2017-07-07] MEDS: LEVOTHYROXINE 200 MCG TAB PO SCH (05:46)
[2017-07-07] MEDS: LEVOTHYROXINE 25 MCG TAB PO SCH (05:46)
[2017-07-07 05:53] LABS: BASO ABS # 0.12 K/uL (0-0.2); COMPLETE YES; EOS % 4.6 %; HEMATOCRIT 32.8 % (42-52); IG% 1.9 %; LYMPH % 25.4 %; LYMPH ABS # 2.98 K/uL (1.2-3.4); MEAN CELL VOLUME 98.5 fL (80-100); MEAN CORPUSCULAR HEMOGLOBIN 30.9 pg (25-34); MEAN CORPUSCULAR HGB CONC 31.4 g/dl (32-36); MEAN PLATELET VOLUME 9.4 fL (7.4-10.4); MONO % 9.1 %; PLATELET COUNT 345 K/uL (130-400); RED BLOOD COUNT 3.33 M/uL (4.7-6.1); WHITE BLOOD COUNT 11.71 K/uL (4.8-10.8)
[2017-07-07 06:38] LABS: BUN/CREATININE RATIO 6.9 (10-20); CALCIUM 8.5 mg/dl (8.5-10.1); CREATININE 1.5 mg/dl (0.60-1.40); POTASSIUM 4.3 mmol/L (3.5-5.1)
[2017-07-07 06:41] LABS: ALB/GLOB RATIO 0.5 (0.9-2)
[2017-07-07] MEDS ORDERED: FLUCONAZOLE 100 MG TAB PO SCH (08:00)
[2017-07-07] MEDS: INSULIN GLARGINE SOLOSTAR 100 UNITS/ML 3 ML PEN SC SCH ×2 (08:00→20:05)
[2017-07-07] MEDS: CHOLECALCIFEROL 1000 INTER.UNIT TAB PO SCH (08:05)
[2017-07-07] MEDS: CEROVITE ADV FORMULA TAB PO SCH (08:05)
[2017-07-07] MEDS: POTASSIUM CHLORIDE 20 MEQ TABCR PO SCH (08:05)
[2017-07-07] MEDS: CLOTRIMAZOLE 1% CR 15 GM TUBE EXT SCH ×2 (08:05→09:04)
[2017-07-07] MEDS: CYANOCOBALAMIN 500 MCG TAB (VIT B-12) PO SCH (08:05)
[2017-07-07 08:06] VITALS: BP 111/70; PULSE 91; TEMP 36.4; O2SAT 94
[2017-07-07] MEDS: ASPIRIN 81 MG ECTAB PO SCH (08:06)
[2017-07-07] MEDS: HEPARIN SOD 5000 UNIT/0.5 ML CARP SQ SCH (08:08)
[2017-07-07] MEDS: INSULIN ASPART 100 UNITS/ML 3 ML PEN SC SCH ×4 (08:55→21:00)
[2017-07-07] MEDS ORDERED: DAPTOmycin IV 550 MG in SODIUM CHLORIDE 0.9% 50ML 50 ML IV SCH (12:00)
--- NOTE | 2017-07-07 12:14 | DIAGNOSTIC IMAGING REPORT ---
ULTRASOUND VENOUS DOPPLER ULTRASOUND OF THE RIGHT UPPER EXTREMITY CLINICAL HISTORY: Right arm swelling COMPARISON STUDY: No previous studies for comparison. FINDINGS: There is an indwelling right-sided PICC catheter. There is acute thrombus within the right axillary vein, as well as involving the proximal basilic vein. No subclavian vein thrombus is visualized. The right internal jugular vein appears patent. The right radial and ulnar veins appear patent. IMPRESSION: Right upper extremity DVT. There is nonocclusive right axillary vein thrombus. Electronically signed by: Todd Joshi M.D. 07/07/2017 12:13 PM Dictated Date/Time: 07/07/2017 12:11 PM
[2017-07-07] MEDS ORDERED: ENOXAPARIN 1 MG/KG SQ SCH (13:00)
[2017-07-07] MEDS ORDERED: ENOXAPARIN SQ SCH (14:00)
[2017-07-07] MEDS: ENOXAPARIN SQ SCH ×2 (14:37→23:23)
[2017-07-07] MEDS: TRAMADOL HCL 50 MG TAB PO PRN (14:38)
[2017-07-07 15:02] VITALS: BP 114/75; PULSE 94; TEMP 36.7; O2SAT 94
[2017-07-07] MEDS ORDERED: WARFARIN SOD 10 MG TAB PO ONE (16:30)
--- NOTE | 2017-07-07 18:16 | Progress Note ---
Internal Med Progress Note Date of Service: Jul 07, 2017. Provider Documentation: SUBJECTIVE: patient seen at bedside. rash of the abdomen present but resolving. continues to have rash of extremities. right hand more swollen today. RUE ultrasound found DVT likey secondary to recent PICC line. Was given 140 mg Lovenox with plans for q12 hour dosing and bridge to coumadin. 1st dose of 10 mg coumadin to be given tonight followed by 7.5 mg on following nights.Fluconazole for shruthi in urine discontinued as this could interfere with INR and patient asymptomatic on urination. antifungal cream to skin wound discontinued as per wound care team in favor of Aquacell dressings to treat the Shruthi of skin. IV antibiotics stopped as per ID as likely completed treatment for cellulitis and that oral antibiotics may lead to new drug rash. patient understands that there is a DVT sceondary to the PICC line and agrees to the plan. patient denies chest pain or shortness of breath OBJECTIVE: General Appearance: no apparent distress, + obese Head: normocephalic, atraumatic Eyes: normal inspection, EOMI, sclerae normal ENT: hearing grossly normal, pharynx normal Neck: supple, no adenopathy, no JVD, trachea midline Respiratory/Chest: lungs clear, no respiratory distress, no accessory muscle use Cardiovascular: regular rate, rhythm, no gallop, no JVD, no murmur, lower extremity edema, L > R Abdomen/GI: normal bowel sounds, non tender, soft, rash resolving on abdomen but still present. Extremities: left knee swelling resolving and bullous lesions with ulcerations on LLE which is now in dressing , continues to have rash on all four extremities , right hand more swollen Neurologic: no motor/sensory deficits, alert, normal mood/affect, oriented x 3 Skin: see above ASSESSMENT & PLAN: 57-year-old male with history of diabetes mellitus, hypertension, obstructive sleep apnea, who was recently hospitalized for left lower extremity cellulitis. Improved on IV antibiotics, blood cultures were negative at that time, and he was discharged home on doxycycline and Augmentin. He has since developed progressively worsening left lower extremity erythema with superficial ulceration of the lower leg, and has developed diffuse erythematous maculopapular rash as well. He was readmitted to the hospital with worsening cellulitis and probable drug eruption, and initially started on vancomycin and levofloxacin for LOWER LEFT LEG CELLULITIS. Patient had been transitioned to daptomycin of 4 mg per kg every 48 hours on 07/03/17 instead of vancomycin to avoid vancomycin associated kidney injury and to continue levofloxacin blood culture on 07/01, 07/04, 07/05, no growth to date CT SCAN OF THE LEFT LOWER EXTREMITY WITH IV CONTRAST on 07/02/17 1. No acute bony abnormality is seen in the visualized left lower extremity. 2. A left knee arthroplasty is in place. There is no CT evidence of hardware complication. 3. Diffuse subcutaneous soft tissue edema suggests cellulitis. No organized fluid collection is seen to indicate abscess. Likely because of IV contrast and IV antibiotics, patient developed Acute Kidney INJURY with creatinine rising to 2.2 and now downtrended after IV hydration all antibiotics stopped on 07/07/17 as per conversation with infectious disease physician Dr. Smith urine culture on clean catch 07/04/17 with shruthi but patient has been asymptomatic, no recent rodriguez catheters, wound culture of lower left extremity with shruthi: had started fluconazole for shruthi UTI but discontinued as urination asymptomatic and fluconazole can interfere with coumadin, and antifungal cream to skin wound discontinued as per wound care team in favor of Aquacell dressings to treat the Shruthi of skin RASH Extensive maculopapular rash on trunk and extremities on admission, now with more resolution of the rash around the abdomen Most likely drug-eruption secondary to amoxicillin, but cannot exclude doxycycline allergy. avoid steroids if possible due to cellulitis. Diphenhydramine PRN. RUE hand swelling RUE ultrasound found DVT likey secondary to recent PICC line. Was given 140 mg Lovenox with plans for q12 hour dosing and bridge to coumadin. 1st dose of 10 mg coumadin to be given tonight followed by 7.5 mg on following nights LLE SWELLING no DVT on lower extremity ultrasound Blood pressure readings on right arm appears to underestimate blood pressure, manually check blood pressure if electronic cuff shows systolic blood pressure less than 90, when electronic cuff readings less than systolic of 90, patient has been asymptomatic/alert/oriented/speaking in full sentences/denies lightheadedness. Continue with IV hydration. is not on home dose lisinopril currently because of rising in creatinine HYPOKALEMIA: resolved after potassium repletion, continue to monitor DM TYPE 2 Hold metformin during hospital stay, Lantus + NovoLog per protocol. HYPOTHYROIDISM Continue levothyroxine. VTE PROPHYLAXIS on full dose anticoagulation RESUSCITATION STATUS Full code Vital Signs: Date Time Temp Pulse Resp B/P (MAP) Pulse Ox O2 Delivery O2 Flow Rate FiO2 07/07/17 15:02 36.7 94 18 114/75 (88) 94 Room Air 07/07/17 10:55 Nasal Cannula 2.0 07/07/17 08:06 36.4 91 18 111/70 (84) 94 Nasal Cannula 2.0 07/07/17 01:05 Nasal Cannula 2.0 07/06/17 23:36 36.6 96 19 117/78 (91) 98 Nasal Cannula 2.0 07/06/17 21:00 Nasal Cannula 2.0 Lab Results: Results Past 24 Hours Test 07/06/17 20:32 07/07/17 05:42 07/07/17 08:09 07/07/17 11:23 Range/Units Bedside Glucose 107 97 123 70-99 mg/dl White Blood Count 11.71 4.8-10.8 K/uL Red Blood Count 3.33 4.7-6.1 M/uL Hemoglobin 10.3 14.0-18.0 g/dL Hematocrit 32.8 42-52 % Mean Corpuscular Volume 98.5 80-100 fL Mean Corpuscular Hemoglobin 30.9 25-34 pg Mean Corpuscular Hemoglobin Concent 31.4 32-36 g/dl Platelet Count 345 130-400 K/uL Mean Platelet Volume 9.4 7.4-10.4 fL Neutrophils (%) (Auto) 58.0 % Lymphocytes (%) (Auto) 25.4 % Monocytes (%) (Auto) 9.1 % Eosinophils (%) (Auto) 4.6 % Basophils (%) (Auto) 1.0 % Neutrophils # (Auto) 6.78 1.4-6.5 K/uL Lymphocytes # (Auto) 2.98 1.2-3.4 K/uL Monocytes # (Auto) 1.07 0.11-0.59 K/uL Eosinophils # (Auto) 0.54 0-0.5 K/uL Basophils # (Auto) 0.12 0-0.2 K/uL RDW Standard Deviation 46.0 36.4-46.3 fL RDW Coefficient of Variation 12.9 11.5-14.5 % Immature Granulocyte % (Auto) 1.9 % Immature Granulocyte # (Auto) 0.22 0.00-0.02 K/uL Sodium Level 143 136-145 mmol/L Potassium Level 4.3 3.5-5.1 mmol/L Chloride Level 105 98-107 mmol/L Carbon Dioxide Level 31 21-32 mmol/L Anion Gap 7.0 3-11 mmol/L Blood Urea Nitrogen 10 7-18 mg/dl Creatinine 1.50 0.60-1.40 mg/dl Est Creatinine Clear Calc Drug Dose 72.3 ml/min Estimated GFR () 59.0 Estimated GFR (Non- 50.9 BUN/Creatinine Ratio 6.9 10-20 Random Glucose 94 70-99 mg/dl Calcium Level 8.5 8.5-10.1 mg/dl Total Bilirubin 0.3 0.2-1 mg/dl Aspartate Amino Transf (AST/SGOT) 21 15-37 U/L Alanine Aminotransferase (ALT/SGPT) 18 12-78 U/L Alkaline Phosphatase 50 45-117 U/L Total Protein 6.5 6.4-8.2 gm/dl Albumin 2.1 3.4-5.0 gm/dl Globulin 4.4 2.5-4.0 gm/dl Albumin/Globulin Ratio 0.5 0.9-2 Test 07/07/17 16:38 Range/Units Bedside Glucose 105 70-99 mg/dl
--- NOTE | 2017-07-07 19:59 | Infectious Disease Progress Nt ---
Progress Note Date of Service Jul 07, 2017. Subjective Pt evaluation today including: conversation w/ patient, physical exam, chart review, lab review, review of studies, conversation w/ consultant rn, review of inpatient medication list Were swelling of right hand, ultrasound confirms DVT. Otherwise offering no new complaints. Remains afebrile. All Other Systems: Reviewed and Negative Medications Current Inpatient Medications Medications (Trade) Dose Ordered Sig/Noble Route Start Time Stop Time Status Last Admin Dose Admin Acetaminophen (Tylenol Tab) 650 mg Q4H PRN PO 07/01/17 19:15 07/31/17 19:14 07/02/17 14:56 650 MG Aspirin (Ecotrin Tab) 81 mg DAILY PO 07/02/17 08:00 08/01/17 08:59 07/07/17 08:06 81 MG Cholecalciferol (Vitamin D Tab) 1,000 inter.unit DAILY PO 07/02/17 08:00 08/01/17 08:59 07/07/17 08:05 1,000 INTER.UNIT Cyanocobalamin (Vitamin B-12 Tab) 500 mcg DAILY PO 07/02/17 08:00 08/01/17 08:59 07/07/17 08:05 500 MCG Levothyroxine Sodium (Synthroid Tab) 25 mcg DAILYBB PO 07/02/17 06:30 08/01/17 06:29 07/07/17 05:46 25 MCG Levothyroxine Sodium (Synthroid Tab) 200 mcg DAILYBB PO 07/02/17 06:30 08/01/17 06:29 07/07/17 05:46 200 MCG Lisinopril (Zestril Tab) 10 mg QPM PO 07/01/17 21:00 07/31/17 20:59 Future Hold 07/02/17 20:31 10 MG Multivitamins/ Minerals (Multivitamin W/ Minerals Tab) 1 tab DAILY PO 07/02/17 08:00 08/01/17 08:59 07/07/17 08:05 1 TAB Simvastatin (Zocor Tab) 20 mg QPM PO 07/01/17 21:00 07/31/17 20:59 07/06/17 20:40 20 MG Tramadol HCl (Ultram Tab) 100 mg Q6H PRN PO 07/01/17 19:30 07/31/17 19:29 07/07/17 14:38 100 MG Oxycodone HCl (Roxicodone Immediate Rel Tab) 10 mg Q6H PRN PO 07/01/17 19:30 07/15/17 19:29 07/07/17 00:15 10 MG Insulin Glargine (Lantus Solostar Pen) 12 units BID SC 07/01/17 20:20 07/31/17 20:59 07/06/17 20:38 12 UNITS Insulin Aspart (novoLOG ASPART) SLIDING SCALE G... ACHS SC 07/01/17 21:00 07/31/17 20:59 07/07/17 08:55 4 UNITS Diphenhydramine HCl (Benadryl Cap) 50 mg Q6H PRN PO 07/01/17 19:30 07/31/17 19:29 07/04/17 00:09 50 MG Potassium Chloride (Klor-Con Tab) 20 meq QAM PO 07/02/17 08:00 08/01/17 08:59 07/07/17 08:05 20 MEQ Glucose (Glucose 40% Gel) 15-30 GRAMS 15 GRAMS... UD PRN PO 07/01/17 20:45 07/31/17 20:44 Glucose (Glucose Chew Tab) 4-8 Tablets 4 Tabl... UD PRN PO 07/01/17 20:45 07/31/17 20:44 Dextrose (Dextrose 50% 50ML Syringe) 25-50ML OF 50% DW IV FOR... UD PRN IV 07/01/17 20:45 07/31/17 20:44 Glucagon (Glucagon Inj) 1 mg UD PRN SQ 07/01/17 20:45 07/31/17 20:44 Heparin Sodium (Porcine) (Heparin 10 Unit/ ml 5 ml Flush) 5 ml PRN PRN FLUSH 07/03/17 18:45 08/02/17 18:44 07/07/17 05:40 5 ML Miconazole Nitrate (Desenex Powder) 1 appln PRN PRN EXT 07/04/17 23:00 08/03/17 22:59 Enoxaparin Sodium (Lovenox Inj) 141 mg Q12 SQ 07/08/17 09:00 08/07/17 08:59 Enoxaparin Sodium 141 mg/Syringe 0.94 ml @ 0.1 mls/sec TODAY@1400,2330 SQ 07/07/17 14:00 07/07/17 23:31 07/07/17 14:37 0.1 MLS/SEC Warfarin Sodium (Coumadin Tab) 7.5 mg DAILY@16 PO 07/08/17 16:00 08/07/17 15:59 Objective Vital Signs Date Time Temp Pulse Resp B/P (MAP) Pulse Ox O2 Delivery O2 Flow Rate FiO2 07/07/17 18:24 Nasal Cannula 2.0 07/07/17 15:02 36.7 94 18 114/75 (88) 94 Room Air 07/07/17 10:55 Nasal Cannula 2.0 07/07/17 08:06 36.4 91 18 111/70 (84) 94 Nasal Cannula 2.0 07/07/17 01:05 Nasal Cannula 2.0 07/06/17 23:36 36.6 96 19 117/78 (91) 98 Nasal Cannula 2.0 07/06/17 21:00 Nasal Cannula 2.0 Physical Exam General Appearance: WD/WN, no apparent distress Eyes: normal inspection, EOMI, sclerae normal ENT: normal ENT inspection, pharynx normal Neck: supple, thyroid normal, trachea midline Respiratory/Chest: chest non-tender, lungs clear, normal breath sounds, no respiratory distress Cardiovascular: regular rate, rhythm, no gallop, no murmur Abdomen: normal bowel sounds, non tender, soft, no organomegaly Extremities: non-tender, + inflammation, + swelling Neurologic/Psychiatric: alert, oriented x 3 Skin: normal color, + rash ( Improving) Lymphatic: no adenopathy Laboratory Results Last 24 Hours Test 07/06/17 20:32 07/07/17 05:42 07/07/17 08:09 07/07/17 11:23 Bedside Glucose 107 mg/dl 97 mg/dl 123 mg/dl White Blood Count 11.71 K/uL Red Blood Count 3.33 M/uL Hemoglobin 10.3 g/dL Hematocrit 32.8 % Mean Corpuscular Volume 98.5 fL Mean Corpuscular Hemoglobin 30.9 pg Mean Corpuscular Hemoglobin Concent 31.4 g/dl Platelet Count 345 K/uL Mean Platelet Volume 9.4 fL Neutrophils (%) (Auto) 58.0 % Lymphocytes (%) (Auto) 25.4 % Monocytes (%) (Auto) 9.1 % Eosinophils (%) (Auto) 4.6 % Basophils (%) (Auto) 1.0 % Neutrophils # (Auto) 6.78 K/uL Lymphocytes # (Auto) 2.98 K/uL Monocytes # (Auto) 1.07 K/uL Eosinophils # (Auto) 0.54 K/uL Basophils # (Auto) 0.12 K/uL RDW Standard Deviation 46.0 fL RDW Coefficient of Variation 12.9 % Immature Granulocyte % (Auto) 1.9 % Immature Granulocyte # (Auto) 0.22 K/uL Sodium Level 143 mmol/L Potassium Level 4.3 mmol/L Chloride Level 105 mmol/L Carbon Dioxide Level 31 mmol/L Anion Gap 7.0 mmol/L Blood Urea Nitrogen 10 mg/dl Creatinine 1.50 mg/dl Est Creatinine Clear Calc Drug Dose 72.3 ml/min Estimated GFR () 59.0 Estimated GFR (Non- 50.9 BUN/Creatinine Ratio 6.9 Random Glucose 94 mg/dl Calcium Level 8.5 mg/dl Total Bilirubin 0.3 mg/dl Aspartate Amino Transf (AST/SGOT) 21 U/L Alanine Aminotransferase (ALT/SGPT) 18 U/L Alkaline Phosphatase 50 U/L Total Protein 6.5 gm/dl Albumin 2.1 gm/dl Globulin 4.4 gm/dl Albumin/Globulin Ratio 0.5 Test 07/07/17 16:38 Bedside Glucose 105 mg/dl Assessment and Plan Recurrent left lower extremity cellulitis as well as significant drug allergy, likely to Augmentin. Would continue patient on daptomycin, dose adjusted for improved renal function. Discussed with Dr. Mclain. Will follow.
[2017-07-07] MEDS: SIMVASTATIN 20 MG TAB PO SCH (20:02)
[2017-07-08 00:20] VITALS: BP 174/77; PULSE 86; TEMP 36.6; O2SAT 97
[2017-07-08] MEDS: LEVOTHYROXINE 200 MCG TAB PO SCH (06:01)
[2017-07-08] MEDS: LEVOTHYROXINE 25 MCG TAB PO SCH (06:01)
[2017-07-08 07:33] VITALS: BP 118/70
[2017-07-08] MEDS: POTASSIUM CHLORIDE 20 MEQ TABCR PO SCH (07:44)
[2017-07-08] MEDS: ASPIRIN 81 MG ECTAB PO SCH (07:44)
[2017-07-08] MEDS: CHOLECALCIFEROL 1000 INTER.UNIT TAB PO SCH (07:44)
[2017-07-08] MEDS: CEROVITE ADV FORMULA TAB PO SCH (07:44)
[2017-07-08] MEDS: CYANOCOBALAMIN 500 MCG TAB (VIT B-12) PO SCH (07:44)
[2017-07-08] MEDS: ENOXAPARIN 150 MG/1ML SYR SQ SCH ×2 (07:50→17:44)
[2017-07-08] MEDS: INSULIN GLARGINE SOLOSTAR 100 UNITS/ML 3 ML PEN SC SCH (08:00)
[2017-07-08 08:09] VITALS: PULSE 90; TEMP 37; O2SAT 96
[2017-07-08 08:09] LABS: INR 1.2 (0.9-1.1); PROTHROMBIN TIME (PATIENT) 13.4 SECONDS (9.0-12.0)
[2017-07-08] MEDS: INSULIN ASPART 100 UNITS/ML 3 ML PEN SC SCH ×2 (08:28→12:48)
[2017-07-08] MEDS ORDERED: NURSING DECISION MEDICATION ORDER SCH (13:00)
[2017-07-08 13:39] LABS: CALCIUM 8.5 mg/dl (8.5-10.1); CREATININE 1.5 mg/dl (0.60-1.40); POTASSIUM 4.5 mmol/L (3.5-5.1)
[2017-07-08 14:26] VITALS: O2SAT 94
[2017-07-08] MEDS: TRAMADOL HCL 50 MG TAB PO PRN (14:26)
[2017-07-08] MEDS ORDERED: LOVENOX TEACHING KIT SCH (15:30)
[2017-07-08 15:44] VITALS: BP 157/88; PULSE 90; TEMP 36.8; O2SAT 91
[2017-07-08] MEDS ORDERED: WARFARIN SOD 7.5 MG TAB PO SCH (16:00)
[2017-07-08] MEDS ORDERED: WARF1TAB PO (16:03)
[2017-07-08] MEDS ORDERED: AMLO5TAB4 PO (16:03)
[2017-07-08] MEDS ORDERED: WARF5TAB90 PO (16:03)
--- NOTE | 2017-07-08 16:13 | Discharge Instructions ---
Discharge Instructions Date of Service Jul 08, 2017. Admission Reason for Admission: Left Leg Cellulitis Discharge Discharge Diagnosis / Problem: DVT, CELLULITIS, DRUG RASH Discharge Goals Goal(s): Decrease discomfort, Improve function Activity Recommendations Activity Limitations: resume your previous activity . Instructions / Follow-Up Instructions / Follow-Up FOLLOWUP WITH FAMILY DOCTOR ON June AT 10:45AM FOLLOWUP WITH COUMADIN CLINIC FOR COUMADIN DOSING COUMADIN 7MG ( ONE 5MG TAB AND TWO 2MG TABLETS) DAILY IN EVENING UNTIL FURTHER NOTICE FROM COUMADIN CLINIC. LAB: PT/INR IN 2-3 DAYS AND FOLLOW RESULTS WITH COUMADIN CLINIC. LOVENOX SHOTS 140MG SUBCUTANEOUSLY TWICE DAILY UNTIL COUMADIN LEVELS COME UP. COUMADIN CLINIC WILL GUIDE REGARDING COUMADIN DOSING AND DURATION OF LOVENOX SHOTS. WILL NOTIFY COUMADIN CLINIC. DURATION OF COUMADIN PER FAMILY DOCTOR. LAB: BMP IN 5-7 DAYS AND FOLLOW RESULTS WITH FAMILY DOCTOR. HOLDING BLOOD PRESSURE MEDICATION LISINOPRIL BECAUSE OF MILD RENAL FAILURE AND IN PLACE OF LISINOPRIL STARTING ON NORVASC. RESTARTING LISINOPRIL AND STOPPING NORVASC PER FAMILY DOCTOR BASED ON LAB WORK. Current Hospital Diet Patient's current hospital diet: AHA Diet (Heart Healthy), Diabetes Type 2 Diet Discharge Diet Recommended Diet: AHA Diet (Heart Healthy), Diabetes Type 2 Diet Pending Studies Studies pending at discharge: no Medical Emergencies . Who to Call and When: Medical Emergencies: If at any time you feel your situation is an emergency, please call 911 immediately. . Non-Emergent Contact Non-Emergency issues call your: Primary Care Provider . . "Provider Documentation" section prepared by Pradeep Trimble. . VTE Core Measure Inpt VTE Proph given/why not?: Enoxaparin (Lovenox)SQ
[2017-07-08] MEDS ORDERED: LVNIS150 SQ (16:15)
[2017-07-08 17:10] VITALS: BP 157/88; PULSE 90; TEMP 36.8; O2SAT 91
--- NOTE | 2017-07-08 17:45 | Infectious Disease Progress Nt ---
Progress Note Date of Service Jul 08, 2017. Subjective Pt evaluation today including: conversation w/ patient, physical exam, chart review, lab review, review of studies, conversation w/ knowledge management consultant, review of inpatient medication list Patient offering no new complaints today. No fever. Rash is slowly fading. All Other Systems: Reviewed and Negative Medications Current Inpatient Medications Medications (Trade) Dose Ordered Sig/Noble Route Start Time Stop Time Status Last Admin Dose Admin Acetaminophen (Tylenol Tab) 650 mg Q4H PRN PO 07/01/17 19:15 07/31/17 19:14 07/02/17 14:56 650 MG Aspirin (Ecotrin Tab) 81 mg DAILY PO 07/02/17 08:00 08/01/17 08:59 07/08/17 07:44 81 MG Cholecalciferol (Vitamin D Tab) 1,000 inter.unit DAILY PO 07/02/17 08:00 08/01/17 08:59 07/08/17 07:44 1,000 INTER.UNIT Cyanocobalamin (Vitamin B-12 Tab) 500 mcg DAILY PO 07/02/17 08:00 08/01/17 08:59 07/08/17 07:44 500 MCG Levothyroxine Sodium (Synthroid Tab) 25 mcg DAILYBB PO 07/02/17 06:30 08/01/17 06:29 07/08/17 06:01 25 MCG Levothyroxine Sodium (Synthroid Tab) 200 mcg DAILYBB PO 07/02/17 06:30 08/01/17 06:29 07/08/17 06:01 200 MCG Lisinopril (Zestril Tab) 10 mg QPM PO 07/01/17 21:00 07/31/17 20:59 Future Hold 07/02/17 20:31 10 MG Multivitamins/ Minerals (Multivitamin W/ Minerals Tab) 1 tab DAILY PO 07/02/17 08:00 08/01/17 08:59 07/08/17 07:44 1 TAB Simvastatin (Zocor Tab) 20 mg QPM PO 07/01/17 21:00 07/31/17 20:59 07/07/17 20:02 20 MG Tramadol HCl (Ultram Tab) 100 mg Q6H PRN PO 07/01/17 19:30 07/31/17 19:29 07/08/17 14:26 100 MG Oxycodone HCl (Roxicodone Immediate Rel Tab) 10 mg Q6H PRN PO 07/01/17 19:30 07/15/17 19:29 07/07/17 20:02 10 MG Insulin Glargine (Lantus Solostar Pen) 12 units BID SC 07/01/17 20:20 07/31/17 20:59 07/07/17 20:05 12 UNITS Insulin Aspart (novoLOG ASPART) SLIDING SCALE G... ACHS SC 07/01/17 21:00 07/31/17 20:59 07/08/17 08:28 4 UNITS Diphenhydramine HCl (Benadryl Cap) 50 mg Q6H PRN PO 07/01/17 19:30 07/31/17 19:29 07/04/17 00:09 50 MG Potassium Chloride (Klor-Con Tab) 20 meq QAM PO 07/02/17 08:00 08/01/17 08:59 07/08/17 07:44 20 MEQ Glucose (Glucose 40% Gel) 15-30 GRAMS 15 GRAMS... UD PRN PO 07/01/17 20:45 07/31/17 20:44 Glucose (Glucose Chew Tab) 4-8 Tablets 4 Tabl... UD PRN PO 07/01/17 20:45 07/31/17 20:44 Dextrose (Dextrose 50% 50ML Syringe) 25-50ML OF 50% DW IV FOR... UD PRN IV 07/01/17 20:45 07/31/17 20:44 Glucagon (Glucagon Inj) 1 mg UD PRN SQ 07/01/17 20:45 07/31/17 20:44 Heparin Sodium (Porcine) (Heparin 10 Unit/ ml 5 ml Flush) 5 ml PRN PRN FLUSH 07/03/17 18:45 08/02/17 18:44 07/07/17 05:40 5 ML Miconazole Nitrate (Desenex Powder) 1 appln PRN PRN EXT 07/04/17 23:00 08/03/17 22:59 Enoxaparin Sodium (Lovenox Inj) 141 mg Q12 SQ 07/08/17 09:00 08/07/17 08:59 07/08/17 07:50 141 MG Warfarin Sodium (Coumadin Tab) 7.5 mg DAILY@16 PO 07/08/17 16:00 08/07/17 15:59 07/08/17 16:06 7.5 MG Miscellaneous (Lovenox Teaching Kit) 1 ea TODAY@1530 N/A 07/08/17 15:30 07/08/17 23:59 07/08/17 16:07 1 EA Objective Vital Signs Date Time Temp Pulse Resp B/P (MAP) Pulse Ox O2 Delivery O2 Flow Rate FiO2 07/08/17 17:10 36.8 90 20 91 Room Air 07/08/17 15:44 36.8 90 20 157/88 (111) 91 Room Air 07/08/17 14:26 94 Room Air 07/08/17 08:09 37.0 90 20 96 Nasal Cannula 2.0 07/08/17 08:00 Nasal Cannula 2.0 07/08/17 07:33 118/70 (86) 07/08/17 00:47 Nasal Cannula 2.0 07/08/17 00:20 36.6 86 20 174/77 (109) 97 2.0 07/07/17 20:58 Nasal Cannula 2.0 07/07/17 18:24 Nasal Cannula 2.0 Physical Exam General Appearance: WD/WN, no apparent distress, + obese Eyes: normal inspection, EOMI, sclerae normal ENT: normal ENT inspection, pharynx normal Neck: supple, no adenopathy, trachea midline Respiratory/Chest: chest non-tender, lungs clear, normal breath sounds, no respiratory distress Cardiovascular: regular rate, rhythm, no gallop, no murmur Abdomen: normal bowel sounds, non tender, soft, no organomegaly Extremities: + inflammation, + swelling Neurologic/Psychiatric: alert, oriented x 3 Skin: normal color, no rash ( Slowly fading), + pertinent finding ( improving left lower extremity cellulitis) Lymphatic: no adenopathy Laboratory Results Last 24 Hours Test 07/07/17 19:53 07/08/17 05:58 07/08/17 07:40 07/08/17 07:48 Bedside Glucose 132 mg/dl 100 mg/dl 104 mg/dl Prothrombin Time 13.4 SECONDS Prothromb Time International Ratio 1.2 Sodium Level 144 mmol/L Potassium Level 4.5 mmol/L Chloride Level 105 mmol/L Carbon Dioxide Level 35 mmol/L Anion Gap 4.0 mmol/L Blood Urea Nitrogen 9 mg/dl Creatinine 1.50 mg/dl Est Creatinine Clear Calc Drug Dose 72.3 ml/min Estimated GFR () 59.0 Estimated GFR (Non- 50.9 BUN/Creatinine Ratio 6.0 Random Glucose 97 mg/dl Calcium Level 8.5 mg/dl Test 07/08/17 12:07 07/08/17 16:58 Bedside Glucose 98 mg/dl 150 mg/dl Assessment and Plan Recurrent left lower extremity cellulitis as well as significant drug allergy, likely to Augmentin, but doxycycline also possible cause. Given lack of appropriate oral antibiotics, and the patient has received prolonged course of both IV and oral antibiotics, with think that antibiotics can be discontinued and patient followed clinically for any worsening skin infection. Discussed with hospitalist service.
--- NOTE | 2017-07-08 20:17 | Progress Note ---
Internal Med Progress Note Date of Service: Jul 08, 2017. Provider Documentation: SUBJECTIVE: resting comfortably afebrile ambulated ok as per patient no sob rash in lower extremity much improved family in room wants to be discharged OBJECTIVE: Vital Signs-as noted below Exam: General-alert and awake. Not in distress ENT-normal hearing Neck-no neck masses Lungs-cta b/l no wheezing bibasilar crackles present Heart-s1 and s2 heard regular rate and rhythm no murmurs Abdomen-soft bowel sounds present non tender no distension Extremities-right upper extremity mildly swollen. Lower extremity edema present Skin macular rash in lower extremity improving Neuro-alert and awake moves extremities Lab data as noted below. ASSESSMENT & PLAN: As per Dr. Mclain"57-year-old male with history of diabetes mellitus, hypertension , obstructive sleep apnea, who was recently hospitalized for left lower extremity cellulitis. Improved on IV antibiotics, blood cultures were negative at that time, and he was discharged home on doxycycline and Augmentin. He has since developed progressively worsening left lower extremity erythema with superficial ulceration of the lower leg, and has developed diffuse erythematous maculopapular rash as well. He was readmitted to the hospital with worsening cellulitis and probable drug eruption, and initially started on vancomycin and levofloxacin for LOWER LEFT LEG CELLULITIS. Patient had been transitioned to daptomycin of 4 mg per kg every 48 hours on 07/03/17 instead of vancomycin to avoid vancomycin associated kidney injury and to continue levofloxacin " Lower extremity cellulitis? recently discharged on po doxycycline and Augmentin' initially treated with vanco and Levaquin improved ID ok to stop abx RASH Extensive maculopapular rash on trunk and extremities on admission, now with more resolution of the rash around the abdomen Most likely drug-eruption secondary to amoxicillin, but cannot exclude doxycycline allergy. much improved RUE hand swelling RUE ultrasound found DVT likey secondary to recent PICC line. discharged on Lovenox bridge and Coumadin close followup with pcp and Coumadin clinic LLE SWELLING no DVT on lower extremity ultrasound ARF fron drugs? vanco stopped' lisinopril on hold cr peaked to 2.3 today cr 1.5 HYPOKALEMIA: resolved after potassium repletion, continue to monitor DM TYPE 2 Holding metformin during hospital stay, Lantus + NovoLog per protocol. HYPOTHYROIDISM Continue levothyroxine. DISPOSITION discharged home Vital Signs: Date Time Temp Pulse Resp B/P (MAP) Pulse Ox O2 Delivery O2 Flow Rate FiO2 07/08/17 17:10 36.8 90 20 91 Room Air 07/08/17 15:44 36.8 90 20 157/88 (111) 91 Room Air 07/08/17 14:26 94 Room Air 07/08/17 08:09 37.0 90 20 96 Nasal Cannula 2.0 07/08/17 08:00 Nasal Cannula 2.0 07/08/17 07:33 118/70 (86) 07/08/17 00:47 Nasal Cannula 2.0 07/08/17 00:20 36.6 86 20 174/77 (109) 97 2.0 07/07/17 20:58 Nasal Cannula 2.0 Lab Results: Results Past 24 Hours Test 07/08/17 05:58 07/08/17 07:40 07/08/17 07:48 07/08/17 12:07 Range/Units Bedside Glucose 100 104 98 70-99 mg/dl Prothrombin Time 13.4 9.0-12.0 SECONDS Prothromb Time International Ratio 1.2 0.9-1.1 Sodium Level 144 136-145 mmol/L Potassium Level 4.5 3.5-5.1 mmol/L Chloride Level 105 98-107 mmol/L Carbon Dioxide Level 35 21-32 mmol/L Anion Gap 4.0 3-11 mmol/L Blood Urea Nitrogen 9 7-18 mg/dl Creatinine 1.50 0.60-1.40 mg/dl Est Creatinine Clear Calc Drug Dose 72.3 ml/min Estimated GFR () 59.0 Estimated GFR (Non- 50.9 BUN/Creatinine Ratio 6.0 07-18 Random Glucose 97 70-99 mg/dl Calcium Level 8.5 8.5-10.1 mg/dl Test 07/08/17 16:58 Range/Units Bedside Glucose 150 70-99 mg/dl
--- NOTE | 2017-07-08 20:35 | Discharge Summary ---
Discharge Summary Date of Service Jul 08, 2017. Discharge Summary Admission Date: Jul 01, 2017 at 19:11 Discharge Date: Jul 08, 2017 Discharge Disposition: Home Principal Diagnosis: DRUG RASH DVT CELLULITIS? Secondary Diagnoses/Problems: (1) DM type 2 (diabetes mellitus, type 2) Status: Chronic (2) Dyslipidemia Status: Chronic (3) HTN (hypertension) Status: Chronic (4) Hypothyroidism Status: Chronic (5) MICAH (obstructive sleep apnea) Status: Chronic Procedures: CHEST XRAY: 1. Mild cardiomegaly. Otherwise no acute cardiopulmonary disease. LEFT LOWER EXTREMITY VENOUS DOPPLER: No DVT within the left lower extremity. LEFT LOWER EXTREMITY CT SCAN WITH CONTRAST: 1. No acute bony abnormality is seen in the visualized left lower extremity. 2. A left knee arthroplasty is in place. There is no CT evidence of hardware complication. 3. Diffuse subcutaneous soft tissue edema suggests cellulitis. No organized fluid collection is seen to indicate abscess. RIGHT UPPER EXTREMITY US: Right upper extremity DVT. There is nonocclusive right axillary vein thrombus. Consultations: ID NEPHROLOGY Medication Reconciliation New Medications: Amlodipine Besylate (Norvasc) 5 Mg Tab 1 TAB PO DAILY for 30 Days, #30 TAB Warfarin Sodium (Coumadin) 5 Mg Tab 5 MG PO DAILY, #30 TAB 2 Refills COUMADIN 7MG PO DAILY UNTIL FURTHER NOTICE FROM COUMADIN CLINIC Warfarin Sodium (Coumadin) 1 Mg Tab 2 MG PO DAILY, #60 TAB 2 Refills COUMADIN 7MG PO DAILY UNTIL FURTHER NOTICE FROM COUMADIN CLINIC Enoxaparin (Lovenox) 150 Mg/1 Ml Inj 140 MG SQ Q12 for 7 Days Continued Medications: Aspirin (Aspirin Ec) 81 Mg Tab 81 MG PO DAILY Cholecalciferol (Vitamin D3) 1,000 Unit Tab 1 TAB PO DAILY for 90 Days, #90 TAB 3 Refills Cyanocobalamin (Vitamin B-12) 500 Mcg Tab 500 MCG PO DAILY, TAB Levothyroxine Sodium (Synthroid) 200 Mcg Tab 200 MCG PO QAM, TAB TAKE WITH 25 MCG = 225 mg Levothyroxine Sodium (Synthroid) 25 Mcg Tab 25 MCG PO DAILY, TAB Metformin Hcl (Glucophage) 500 Mg Tab 500 MG PO BID, TAB Multivitamins/Minerals (Mvi With Minerals) Tab 1 TAB PO DAILY, TAB Simvastatin (Zocor) 20 Mg Tab 20 MG PO QPM, TAB Tramadol (Ultram) 50 Mg Tab 1-2 TABS PO Q8H PRN for Pain, TAB Discontinued Medications: Amoxicillin & Pot Clavulanate (Amoxicillin/Clavulanate P) 1 Tab Tab 875 MG PO BIDM for 7 Days, TAB Doxycycline Hyclate (Doxycycline Hyclate) 100 Mg Cap 100 MG PO BID for 7 Days, #14 CAP Lisinopril (Zestril) 10 Mg Tab 10 MG PO QPM, TAB Admission Information HPI (per Admitting provider): 57 YO male followed by Dr. Huggins for Family Medicine. History of diabetes type 2 and other problems noted below. Hospitalized at [facility] 06/23/17 with cellulitis of LLE. Received IV antibiotics (ceftriaxone, piperacillin / tazobactam, vancomycin with improvement. Blood culture negative. Discharged on 06/27/17 with Rx's for doxycycline and amoxicillin / clavulanic acid. Has developed worsening erythema and swelling of left leg over past few days. Also developed a rash involving his trunk and extremities. No fever. No CP or SOB. No nausea, vomiting, diarrhea. . Physical Exam (per Admitting): General Appearance: no apparent distress, + obese Head: normocephalic, atraumatic Eyes: normal inspection, PERRL, EOMI, sclerae normal (conjunctivae pink) ENT: hearing grossly normal, pharynx normal, + pertinent finding (no oral ulcers) Neck: supple, no adenopathy, thyroid normal, no JVD, trachea midline Respiratory/Chest: lungs clear, no respiratory distress, no accessory muscle use Cardiovascular: regular rate, rhythm, no gallop, no JVD, no murmur, + pertinent finding (lower extremity edema, L > R) Abdomen/GI: normal bowel sounds, non tender, soft, no organomegaly, no pulsatile mass, + pertinent finding (obese) Extremities/Musculoskelatal: + pedal edema, + pertinent finding (swelling and extensive erythema LLE (leg and thigh), bullous lesions with shallow ulcerations) Neurologic/Psych: [employer] II-XII nml as tested (PERRL, EOMI, no facial palsy, no dysarthria), no motor/sensory deficits (grossly intact), alert, normal mood/ affect, oriented x 3 Skin: warm/dry, + pertinent finding (extensive maculopapular rash trunk and extremities; LLE findings as noted above) Lymphatic: no adenopathy (cervical) Hospital Course As per Dr. Mclain"57-year-old male with history of diabetes mellitus, hypertension , obstructive sleep apnea, who was recently hospitalized for left lower extremity cellulitis. Improved on IV antibiotics, blood cultures were negative at that time, and he was discharged home on doxycycline and Augmentin. He has since developed progressively worsening left lower extremity erythema with superficial ulceration of the lower leg, and has developed diffuse erythematous maculopapular rash as well. He was readmitted to the hospital with worsening cellulitis and probable drug eruption, and initially started on vancomycin and levofloxacin for LOWER LEFT LEG CELLULITIS. Patient had been transitioned to daptomycin of 4 mg per kg every 48 hours on 07/03/17 instead of vancomycin to avoid vancomycin associated kidney injury and to continue levofloxacin " Lower extremity cellulitis? recently discharged on po doxycycline and Augmentin' initially treated with vanco and Levaquin improved ID ok to stop abx RASH Extensive maculopapular rash on trunk and extremities on admission, now with more resolution of the rash around the abdomen Most likely drug-eruption secondary to amoxicillin, but cannot exclude doxycycline allergy. much improved RUE hand swelling RUE ultrasound found DVT likey secondary to recent PICC line. discharged on Lovenox bridge and Coumadin close followup with pcp and Coumadin clinic LLE SWELLING no DVT on lower extremity ultrasound ARF fron drugs? vanco stopped' lisinopril on hold cr peaked to 2.3 today cr 1.5 HYPOKALEMIA: resolved after potassium repletion, continue to monitor DM TYPE 2 Holding metformin during hospital stay, Lantus + NovoLog per protocol. HYPOTHYROIDISM Continue levothyroxine. DISPOSITION discharged home Total time spent on discharge = 35MINUTES This includes examination of the patient, discharge planning, medication reconciliation, and communication with other providers. Discharge Instructions Discharge Instructions Date of Service Jul 08, 2017. Admission Reason for Admission: Left Leg Cellulitis Discharge Discharge Diagnosis / Problem: DVT, CELLULITIS, DRUG RASH Discharge Goals Goal(s): Decrease discomfort, Improve function Activity Recommendations Activity Limitations: resume your previous activity . Instructions / Follow-Up Instructions / Follow-Up FOLLOWUP WITH FAMILY DOCTOR ON June AT 10:45AM FOLLOWUP WITH COUMADIN CLINIC FOR COUMADIN DOSING COUMADIN 7MG ( ONE 5MG TAB AND TWO 2MG TABLETS) DAILY IN EVENING UNTIL FURTHER NOTICE FROM COUMADIN CLINIC. LAB: PT/INR IN 2-3 DAYS AND FOLLOW RESULTS WITH COUMADIN CLINIC. LOVENOX SHOTS 140MG SUBCUTANEOUSLY TWICE DAILY UNTIL COUMADIN LEVELS COME UP. COUMADIN CLINIC WILL GUIDE REGARDING COUMADIN DOSING AND DURATION OF LOVENOX SHOTS. WILL NOTIFY COUMADIN CLINIC. DURATION OF COUMADIN PER FAMILY DOCTOR. LAB: BMP IN 5-7 DAYS AND FOLLOW RESULTS WITH FAMILY DOCTOR. HOLDING BLOOD PRESSURE MEDICATION LISINOPRIL BECAUSE OF MILD RENAL FAILURE AND IN PLACE OF LISINOPRIL STARTING ON NORVASC. RESTARTING LISINOPRIL AND STOPPING NORVASC PER FAMILY DOCTOR BASED ON LAB WORK. Current Hospital Diet Patient's current hospital diet: AHA Diet (Heart Healthy), Diabetes Type 2 Diet Discharge Diet Recommended Diet: AHA Diet (Heart Healthy), Diabetes Type 2 Diet Pending Studies Studies pending at discharge: no Medical Emergencies . Who to Call and When: Medical Emergencies: If at any time you feel your situation is an emergency, please call 911 immediately. . Non-Emergent Contact Non-Emergency issues call your: Primary Care Provider . . "Provider Documentation" section prepared by Pradeep Trimble. . VTE Core Measure Inpt VTE Proph given/why not?: Enoxaparin (Lovenox)SQ
== END 2017-07-08 18:00 | disposition home or self-care (01) | DRG 603 ==
LOC: C.EDB 14:23 → C.4E 19:11 → ENRESERV 19:57
PROVIDERS: ADMIT Hospitalist; ATTEND Internal Medicine
PROC: 05HB33Z Insertion of Infusion Device into Right Basilic Vein, Percutaneous Approach (ICD-10-PCS; principal; 2017-07-03)
DX: L03.116 Cellulitis of left lower limb (principal); N17.9 Acute kidney failure, unspecified; L97.929 Non-pressure chronic ulcer of unspecified part of left lower leg with unspecified severity; T82.868A Thrombosis due to vascular prosthetic devices, implants and grafts, initial encounter; B37.49 Other urogenital candidiasis; Z82.49 Family history of ischemic heart disease and other diseases of the circulatory system; F17.200 Nicotine dependence, unspecified, uncomplicated; Z79.82 Long term (current) use of aspirin; L27.0 Generalized skin eruption due to drugs and medicaments taken internally; I10 Essential (primary) hypertension; E87.6 Hypokalemia; E11.9 Type 2 diabetes mellitus without complications; E03.9 Hypothyroidism, unspecified; T36.0X5A Adverse effect of penicillins, initial encounter; G47.33 Obstructive sleep apnea (adult) (pediatric); E66.9 Obesity, unspecified; I95.9 Hypotension, unspecified; E78.5 Hyperlipidemia, unspecified; Z96.652 Presence of left artificial knee joint; B37.2 Candidiasis of skin and nail; T36.4X5A Adverse effect of tetracyclines, initial encounter; M79.89 Other specified soft tissue disorders; Y84.8 Other medical procedures as the cause of abnormal reaction of the patient, or of later complication, without mention of misadventure at the time of the procedure